=== PATIENT | male | born 1950 | race Caucasian/White ===

== ENCOUNTER 2018-07-03 16:24 | Emergency (ER) | payer SELFPAY ==
[2018-07-03 16:28] VITALS: BP 123/66; PULSE 76; RESP 16; TEMP 36.6; O2SAT 98
--- NOTE | 2018-07-03 16:36 | W.ED.GENAD ---
Discharge Plan Disposition Patient Disposition: HOME Condition: Stable Discharge Details Chief Complaint: Abd Prob Clinical Impression: Postoperative ecchymosis Primary Care Provider: Rylan Page ED Provider: Maxime Ocampo Home Meds and New Rx's Prescriptions: No Action aspirin [Aspir-81] 81 MG tablet,delayed release (DR/EC) 81 mg PO DAILY RF: 0 rosuvastatin [Crestor] 40 MG tablet 40 mg PO QPM RF: 0 umeclidinium [Incruse Ellipta] 1 PUFF blister with device 1 puff IN PRN PRNRF: 0 acetaminophen [Acetaminophen Extra Strength] 500 mg Tablet 500 mg PO QID RF: 0 ibuprofen 100 mg/5 mL Suspension 400 mg PO Q4H PRNRF: 0 tiotropium-olodaterol [Stiolto Respimat] 2.5-2.5 mcg/actuation Mist 2 puff Inhalation DAILY RF: 0 Discharge Instructions Additional Instructions: The bruising is normal after the operation follow up with your surgeon as scheduled next week if you have severe pain return to the emergency department for reevaluation Medical Decision Making pt states he had alexandra on 06/25 in [facility] with Dr. Crawford, and today noticed bruising around the laparascopic ports and called his surgeon's office and was advised to come here. Has no drianage of the wounds and has absolutely no pain, does have bruising of the skin. Suspect normal post op bruising but will discuss with his surgeon spoke with the PA for dr. crawford who agreed this is normal post op, can f/u as scheduled and return here if pain develops Differential Diagnosis post op bruising, hematoma HPI General Mode of arrival: ambulatory. Date/Time Provider Initiated Documentation: 07/03/18 16:31. Limitations to Documentation: no limitations. History of Present Illness 68 year old M presents to the emergency department with the chief complaint of abdominal bruising, described as mild, and is localized to the abdomen. Patient reports no radiation. Patient started experiencing this day(s) (1) and it has been constant. No relieving factors improve symptom(s), No exacerbating factors reported . Patient did receive the following treatments prior to arrival, none Related Data Home Medications Medication Instructions Recorded Confirmed aspirin [Aspir-81] 81 mg PO DAILY 04/25/14 08/29/17 rosuvastatin [Crestor] 40 mg PO QPM 04/25/14 08/29/17 umeclidinium [Incruse Ellipta] 1 puff IN PRN PRN 08/21/17 08/29/17 acetaminophen [Acetaminophen Extra 500 mg PO QID 07/03/18 07/03/18 Strength] ibuprofen 400 mg PO Q4H PRN 07/03/18 07/03/18 tiotropium-olodaterol [Stiolto 2 puff INHALATION DAILY 07/03/18 07/03/18 Respimat] Allergies Allergy/AdvReac Type Severity Reaction Status Date / Time No Known Allergies Allergy Unverified 08/29/17 23:18 General Stated Complaint: Abd Prob BRYAN: 3 Review of Systems Review of Systems All systems reviewed & are unremarkable except as noted in HPI and below Constitutional Denies chills, Denies fever(s) and Denies weakness Eyes Denies loss of vision ENT Denies change in voice Cardiovascular Denies chest pain and Denies dyspnea Respiratory Denies dyspnea Gastrointestinal Denies abdominal pain, Denies nausea and Denies vomiting Genitourinary Denies dysuria Musculoskeletal Denies joint swelling Neurologic Denies loss of vision and Denies weakness Psychiatric Denies depression Endocrine Denies cold intolerance and Denies heat intolerance Allergic/Immunologic Denies urticaria PFSH Social History Smoking/Tobacco Use Status: Current every day Exam Const General: no acute distress Orientation: alert [facility] Head: normal to inspection Ears: external ears normal General nose exam: external nose normal Mouth: moist mucous membranes Eyes General: appearance normal, both eyes and all related structures Neck Neck: normal visual inspection Resp Effort & Inspection: normal respiratory effort and able to speak in complete sentences Cardio Rate: regular rate Skin General skin exam: no rashes or lesions noted Neuro General: alert and oriented x3 Extrem General: normal to inspection Psych Mental Status: mental status grossly normal Course Vital Signs Temperature 36.6 C 07/03/18 16:28 Pulse 76 07/03/18 16:28 Respiratory Rate 16 07/03/18 16:28 Blood Pressure 123/66 07/03/18 16:28 Pulse Oximetry 98 07/03/18 16:28 Temperature 36.6 C 07/03/18 16:28 Temperature Source Skin 07/03/18 16:28 Pulse 76 07/03/18 16:28 Respiratory Rate 16 07/03/18 16:28 Respiratory Effort 07/03/18 16:31 Blood Pressure 123/66 07/03/18 16:28 Blood Pressure Position Sitting 07/03/18 16:28 Pulse Oximetry 98 07/03/18 16:28 Oxygen Delivery Method Room Air 07/03/18 16:28 Oxygen Flow Rate 0 07/03/18 16:28 Pain Level 0 07/03/18 16:28
--- NOTE | 2018-07-03 16:40 | ED.GENADUL_ITS ---
Discharge Plan Disposition Patient Disposition: HOME Condition: Stable Discharge Details Chief Complaint: Abd Prob Clinical Impression: Postoperative ecchymosis Primary Care Provider: Rylan Page ED Provider: Maxime Ocampo Home Meds and New Rx's Prescriptions: No Action aspirin [Aspir-81] 81 MG tablet,delayed release (DR/EC) 81 mg PO DAILY RF: 0 rosuvastatin [Crestor] 40 MG tablet 40 mg PO QPM RF: 0 umeclidinium [Incruse Ellipta] 1 PUFF blister with device 1 puff IN PRN PRNRF: 0 acetaminophen [Acetaminophen Extra Strength] 500 mg Tablet 500 mg PO QID RF: 0 ibuprofen 100 mg/5 mL Suspension 400 mg PO Q4H PRNRF: 0 tiotropium-olodaterol [Stiolto Respimat] 2.5-2.5 mcg/actuation Mist 2 puff Inhalation DAILY RF: 0 Discharge Instructions Additional Instructions: The bruising is normal after the operation follow up with your surgeon as scheduled next week if you have severe pain return to the emergency department for reevaluation Medical Decision Making pt states he had alexandra on 06/[address] [facility] with Dr. Crawford, and today noticed bruising around the laparascopic ports and called his surgeon's office and was advised to come here. Has no drianage of the wounds and has absolutely no pain, does have bruising of the skin. Suspect normal post op bruising but will discuss with his surgeon spoke with the PA for dr. crawford who agreed this is normal post op, can f/u as scheduled and return here if pain develops Differential Diagnosis post op bruising, hematoma HPI General Mode of arrival: ambulatory . Date/Time Provider Initiated Documentation: 07/03/18 16:31 . Limitations to Documentation: no limitations . History of Present Illness 68 year old M presents to the emergency department with the chief complaint of abdominal bruising, described as mild, and is localized to the abdomen. Patient reports no radiation. Patient started experiencing this day(s) (1) and it has been constant. No relieving factors improve symptom(s), No exacerbating factors reported . Patient did receive the following treatments prior to arrival, none Related Data Home Medications Medication Instructions Recorded Confirmed aspirin [Aspir-81] 81 mg PO DAILY 04/25/14 08/29/17 rosuvastatin [Crestor] 40 mg PO QPM 04/25/14 08/29/17 umeclidinium [Incruse Ellipta] 1 puff IN PRN PRN 08/21/17 08/29/17 acetaminophen [Acetaminophen Extra 500 mg PO QID 07/03/18 07/03/18 Strength] ibuprofen 400 mg PO Q4H PRN 07/03/18 07/03/18 tiotropium-olodaterol [Stiolto 2 puff INHALATION DAILY 07/03/18 07/03/18 Respimat] Allergies Allergy/AdvReac Type Severity Reaction Status Date / Time No Known Allergies Allergy Unverified 08/29/17 23:18 General Stated Complaint: Abd Prob BRYAN: 3 Review of Systems Review of Systems All systems reviewed & are unremarkable except as noted in HPI and below Constitutional Denies chills, Denies fever(s) and Denies weakness Eyes Denies loss of vision ENT Denies change in voice Cardiovascular Denies chest pain and Denies dyspnea Respiratory Denies dyspnea Gastrointestinal Denies abdominal pain, Denies nausea and Denies vomiting Genitourinary Denies dysuria Musculoskeletal Denies joint swelling Neurologic Denies loss of vision and Denies weakness Psychiatric Denies depression Endocrine Denies cold intolerance and Denies heat intolerance Allergic/Immunologic Denies urticaria PFSH Social History Smoking/Tobacco Use Status: Current every day Exam Const General: no acute distress Orientation: alert [facility] Head: normal to inspection Ears: external ears normal General nose exam: external nose normal Mouth: moist mucous membranes Eyes General: appearance normal, both eyes and all related structures Neck Neck: normal visual inspection Resp Effort & Inspection: normal respiratory effort and able to speak in complete sentences Cardio Rate: regular rate Skin General skin exam: no rashes or lesions noted Neuro General: alert and oriented x3 Extrem General: normal to inspection Psych Mental Status: mental status grossly normal Course Vital Signs Temperature 36.6 C 07/03/18 16:28 Pulse 76 07/03/18 16:28 Respiratory Rate 16 07/03/18 16:28 Blood Pressure 123/66 07/03/18 16:28 Pulse Oximetry 98 07/03/18 16:28 Temperature 36.6 C 07/03/18 16:28 Temperature Source Skin 07/03/18 16:28 Pulse 76 07/03/18 16:28 Respiratory Rate 16 07/03/18 16:28 Respiratory Effort 07/03/18 16:31 Blood Pressure 123/66 07/03/18 16:28 Blood Pressure Position Sitting 07/03/18 16:28 Pulse Oximetry 98 07/03/18 16:28 Oxygen Delivery Method Room Air 07/03/18 16:28 Oxygen Flow Rate 0 07/03/18 16:28 Pain Level 0 07/03/18 16:28
[2018-07-03 16:51] VITALS: BP 123/66; PULSE 76; RESP 16; TEMP 36.6; O2SAT 98
== END 2018-07-03 16:54 | disposition home or self-care (01) ==
LOC: ER 17:15
PROVIDERS: Emergency Provider Emergency Medicine; PCP Internal Medicine
DX: L76.32 Postprocedural hematoma of skin and subcutaneous tissue following other procedure (principal)
CPT/HCPCS: 99282

== ENCOUNTER 2018-07-04 15:05 | Outpatient (CLI) | payer MEDICARE, SELFPAY ==
--- NOTE | 2018-07-04 15:00 | DI.US_ITS ---
SYMPTOMS/DIAGNOSIS: WOUND CHECK, DRAINING, Z51.89, SEROMA, H/O SURGERY ANTERIOR ABDOMINAL WALL ULTRASOUND: Sonographic evaluation of the anterior abdominal wall and the post surgical area was performed. There is 2.7 x 0.9 x 2.4 cm subcutaneous fluid collection in the post surgical area in the anterior abdominal wall. There does appear to be communication with the fluid collection to the skin surface. The fluid appears predominantly anechoic with very little interval echogenicity. No abnormal blood flow is seen. IMPRESSION: Subcutaneous 2.7 cm fluid collection in the post surgical area of the anterior abdominal wall. There does appear to be communication to the skin surface noted. This may represent a seroma or hematoma. An abscess can not be excluded.
== END 2018-07-04 15:25 ==
PROVIDERS: PCP Internal Medicine; Visit Provider Internal Medicine
DX: Z51.89 Encounter for other specified aftercare (principal); L76.34 Postprocedural seroma of skin and subcutaneous tissue following other procedure
CPT/HCPCS: 76705

== ENCOUNTER 2018-10-31 17:19 | Outpatient (REF) | payer MEDICARE, SELFPAY ==
[2018-10-31 21:06] LABS: HGB 14.4 g/dL (13.5-17.5); Mean Corp. HGB Concentration 33.5 g/dL (32.0-36.0); Mean Corpuscular Volume 92.5 fL (80-95); Mean Platelet Volume 10.5 fL (8.0-11.0); Platelet Count 235 x1000/uL (130-400); RBC 4.65 m/cumm (4.50-6.00); RBC Distribution Width 14.1 % (11.8-14.1); White Blood Cell Count 9.08 k/cumm (4.4-10.8)
[2018-10-31 21:11] LABS: Anion Gap 6.9 mmol/L (3-11); BUN 8 mg/dL (7-18); CO2 31.1 mmol/L (21.0-32.0); CREATININE 1.19 mg/dL (0.70-1.30); Calcium 8.8 mg/dL (8.5-10.1); Chloride 102 mmol/L (98-107); Glucose 63 mg/dL (70-100); Potassium 3.7 mmol/L (3.5-5.1); Sodium 140 mmol/L (136-145)
== END 2018-10-31 17:39 ==
LOC: NCHCN 17:19
PROVIDERS: PCP Internal Medicine; Visit Provider Internal Medicine
DX: J44.1 Chronic obstructive pulmonary disease with (acute) exacerbation (principal); F17.200 Nicotine dependence, unspecified, uncomplicated; C34.12 Malignant neoplasm of upper lobe, left bronchus or lung
CPT/HCPCS: 80048; 85027

== ENCOUNTER → 2018-11-04 00:52 | Outpatient (CLI) | payer MEDICARE, SELFPAY ==
--- NOTE | 2018-11-04 14:38 | DI.CT_ITS ---
SYMPTOMS/DIAGNOSIS: COPD, ACUTE EXACERBATION OF LUNG CA, LEFT UPPER LOBE, J44.1, C34.12 CT SCAN OF THE CHEST: CT scan of the chest was performed following the uneventful administration of intravenous contrast material. Comparison is 08/30/17. There is atherosclerosis of the thoracic aorta, which is otherwise stable. The heart size is within normal limits. No significant pericardial effusion is present. Coronary artery calcifications are identified. No significant thoracic adenopathy is present. No pleural effusion or pneumothorax is identified. Upper abdominal images show cholelithiasis. No biliary ductal dilatation. There are calcifications seen in the kidneys bilaterally, which may reflect nonobstructing stones. Central lobular emphysematous changes are present in the lungs. The subpleural reticular infiltrates are again seen and unchanged. No new focal consolidating infiltrates are seen. No pulmonary nodules are identified. The patient appears status post left upper lobectomy. Tracheobronchial tree is otherwise unremarkable. Degenerative changes are seen in the spine. IMPRESSION: 1. Stable appearance of the chest. 2. Status post left upper lobectomy. 3. Central lobular emphysema. 4. Persistent stable reticular opacities in the lungs. These appear to be chronic. 5. No new consolidating infiltrates.
[2018-11-04] MEDS: Omnipaque 350 MG/ML 100 ML BTL 70 ML IJ (14:40)
== END ==
PROVIDERS: PCP Internal Medicine; Visit Provider Internal Medicine
DX: C34.12 Malignant neoplasm of upper lobe, left bronchus or lung (principal); J44.1 Chronic obstructive pulmonary disease with (acute) exacerbation; J43.9 Emphysema, unspecified; Z90.2 Acquired absence of lung [part of]
CPT/HCPCS: 71260; J3490

== ENCOUNTER 2018-11-28 14:40 | Inpatient (IN) | payer MEDICARE, SELFPAY ==
[2018-11-28] VITALS (42 sets, daily range): BP systolic 86–106; BP diastolic 50–66; PULSE 66–117; RESP 8–38; TEMP 36.1–38.5; O2SAT 91–99
--- NOTE | 2018-11-28 14:54 | W.ED.GENAD ---
Discharge Plan Disposition Patient Disposition: [facility] INPATIENT Condition: Good Discharge Details Chief Complaint: SOB Clinical Impression: Pneumonia Primary Care Provider: Rylan Page ED Provider: Singh Taylor Home Meds and New Rx's Prescriptions: No Action aspirin [Aspir-81] 81 MG tablet,delayed release (DR/EC) 81 mg PO DAILY RF: 0 rosuvastatin [Crestor] 40 MG tablet 40 mg PO QPM RF: 0 umeclidinium [Incruse Ellipta] 1 PUFF blister with device 1 puff IN PRN PRNRF: 0 acetaminophen [Acetaminophen Extra Strength] 500 mg Tablet 500 mg PO QID RF: 0 ibuprofen 100 mg/5 mL Suspension 400 mg PO Q4H PRNRF: 0 tiotropium-olodaterol [Stiolto Respimat] 2.5-2.5 mcg/actuation Mist 2 puff Inhalation DAILY RF: 0 Medical Decision Making This is a 68-year-old male with past medical history of lung cancer with subsequent right-sided lobectomy, COPD, AAA, who presents for cough, fever, shortness of breath and chills for the last month. Patient has been on 3 rounds of antibiotics, starting with azithromycin and transitioning to doxycycline, 2 rounds of prednisone, and Tamiflu for the last 3 weeks. He has had no improvement of his symptoms. He has white productive sputum with his cough. He admits to shortness of breath, and he was sent by his air antisubmarine officer secondary to his elevated heart rate and clinical disposition today. Exam demonstrates wheezes throughout, notable tachycardia, but being otherwise hemodynamically stable. Concern for infectious etiology, as well as PE. We will rehydrate, and reassess. 5:[address] scan has returned does demonstrate evidence of notable pneumonia with masslike consolidation in the central right upper lobe. This correlates well with his fever, tachypnea, tachycardia. Although the patient is not been admitted in the last 90 days I feel that he should be covered for hospital-acquired pneumonia with his multiple visits, risk factors with his previous cancer, and his notably failed outpatient therapy. We will start him on vancomycin, Zosyn, and gentamicin as he does have slight prolongation of his QT on his EKG. Patient has been given steroids and butyryl which has minimally improved his symptoms. I have discussed the case with Dr. Jaime he agrees with the assessment and plan. I have extensively reviewed the treatment plan with the patient. I have addressed all patient concerns at this time. I have also discussed the plan with the admitting physician and they agree with the current assessment and plan and have agreed to assume responsibility for the patient. All parties demonstrate verbal understanding and agreement with our assessment and plan at this time. EKG 14: 56 Rate 115, QT of 472, QRS of 230, right bundle branch block, this bundle branch block appears to be new compared to EKG on 08/29/17 CLINICAL HISTORY: 68 years old, male; Signs and symptoms; Cough and shortness of breath; Patient HX: Tachy, SOB, cough, cancer, R/O pe TECHNIQUE: Imaging protocol: Axial computed tomographic angiography images of the chest with intravenous contrast using CT angiography protocol. Coronal and sagittal reformatted images were created and reviewed. 3D rendering: MIP reconstructed images were created and reviewed. Radiation optimization: All CT scans at this facility use at least one of these dose optimization techniques: automated exposure control; mA and/or kV adjustment per patient size (includes targeted exams where dose is matched to clinical indication); or iterative reconstruction. Contrast material: omnipaque 350 Contrast volume: 100 ml Contrast route: iv COMPARISON: CT CHEST FOR PULMONARY EMBOLUS 08/30/2017 12:17 AM FINDINGS: Pulmonary arteries: No pulmonary arterial embolism. Aorta: No aortic aneurysm. No aortic dissection. Lungs: Status post left upper lobectomy. New central right upper lobe masslike consolidation, consistent with pneumonia in the proper clinical setting. Patchy micronodules within the lateral right lower lobe in a tree in bud configuration, likely infectious bronchiolitis. Patchy densities within the peripheral aspects of both upper lung zones, unchanged. Stable pulmonary emphysema. Pleural space: Normal. No pneumothorax. No pleural effusion. Heart: Normal. No cardiomegaly. No pericardial effusion. Gallbladder and bile ducts: Calcified stone within the gallbladder. Lymph nodes: Unremarkable. No enlarged lymph nodes. Bones/joints: Unremarkable. No acute fracture. Soft tissues: Unremarkable. IMPRESSION: 1. No pulmonary arterial embolism. 2. Status post left upper lobectomy. 3. New masslike consolidation within the central right upper lobe consistent with pneumonia in the proper clinical setting. 4. Findings consistent with infectious bronchiolitis of the lateral right lower lobe. Thank you for allowing us to participate in the care of your patient. Dictated and Authenticated by: Sharan Huerta MD HPI General Date/Time Provider Initiated Documentation: 11/28/18 14:40. HPI Narrative: This is a 68-year-old male with past medical history of lung cancer with subsequent right-sided lobectomy, COPD, AAA, high cholesterol, who does see pulmonology, who presents today for evaluation of cough, tachycardia. He was at his air antisubmarine officer office today they noticed that his heart rate was in the 120s they recommended transfer to the ER. For the last month he has been short of breath with cough. He has had 3 rounds of antibiotics, initially azithromycin and is now currently taking doxycycline. He is also been on 2 rounds of steroids and has finished this. Additionally 3 weeks ago he was diagnosed with influenza and was given Tamiflu. He has had a productive cough for the last month, with white sputum. He is not being any breathing treatments as he states these do not work. He denies any fevers, chills, or chest pain. He denies any arm neck or shoulder pain. He denies any vomiting or diarrhea. He denies any other complaints or modifying factors. Related Data Home Medications Medication Instructions Recorded Confirmed aspirin [Aspir-81] 81 mg PO DAILY 04/25/14 07/03/18 rosuvastatin [Crestor] 40 mg PO QPM 04/25/14 07/03/18 umeclidinium [Incruse Ellipta] 1 puff IN PRN PRN 08/21/17 08/29/17 acetaminophen [Acetaminophen Extra 500 mg PO QID 07/03/18 07/03/18 Strength] ibuprofen 400 mg PO Q4H PRN 07/03/18 07/03/18 tiotropium-olodaterol [Stiolto 2 puff INHALATION DAILY 07/03/18 07/03/18 Respimat] Allergies Allergy/AdvReac Type Severity Reaction Status Date / Time No Known Allergies Allergy Unverified 08/29/17 23:18 General Stated Complaint: SOB BRYAN: 2 Review of Systems Review of Systems All systems reviewed & are unremarkable except as noted in HPI and below PFSH Social History Smoking/Tobacco Use Status: Current every day Alcohol Intake: never Drug use: Never Substance use type: does not use Do you feel safe at home: Yes Do you feel safe in your relationship?: Yes Exam Narrative Exam Narrative: 1.Const: Well-nourished, Well-developed, appearing stated age 2.Eyes: PERRL, no conjunctival injection, and symmetrical lids. 3.ENT: Atraumatic external nose and ears. Moist MM. Neck: Symmetric, trachea midline, No thyromegaly. 4.CVS: +S1/S2, No murmurs or gallops. Peripheral pulses 2+ and equal in all extremities. Brisk capillary refill in all extremities. 5.RESP: Decreased breath sounds throughout, notable wheezes throughout. Minimal crackles in bases. 6.GI: Soft, Nontender/Nondistended, No hepatosplenomegaly. No guarding or rebound. 7.MSK: Normocephalic/Atraumatic, Extremities w/o deformity or ttp No cyanosis or clubbing, Normal movement of all extremities. No calf tenderness. 8.Skin: Warm, Dry. No rashes or lesions. 9.Neuro: bioinformatics software engineer II-XII grossly intact. Sensation grossly intact, no focal neurologic deficits. 10.Psych: (AAO) x3. Appropriate mood and affect Course Vital Signs Temperature 37.1 C 11/28/18 14:46 Pulse 117 H 11/28/18 14:46 Respiratory Rate 28 H 11/28/18 14:46 Blood Pressure 106/66 11/28/18 14:46 Pulse Oximetry 95 11/28/18 14:46 Temperature 37.1 C 11/28/18 14:46 Temperature Source Skin 11/28/18 14:46 Pulse 117 H 11/28/18 14:46 Respiratory Rate 28 H 11/28/18 14:46 Respiratory Effort Pursed Lip 11/28/18 14:49 Blood Pressure 106/66 11/28/18 14:46 Pulse Oximetry 95 11/28/18 14:46 Oxygen Delivery Method Room Air 11/28/18 14:46 Oxygen Flow Rate 0 11/28/18 14:46
[2018-11-28] MEDS: Albuterol/Ipratropium 3 ML UPD VIAL UPD (14:58)
--- NOTE | 2018-11-28 14:59 | ED.GENADUL_ITS ---
Discharge Plan Disposition Patient Disposition: [facility] INPATIENT Condition: Good Discharge Details Chief Complaint: SOB Clinical Impression: Pneumonia Primary Care Provider: Rylan Page ED Provider: Singh Taylor Home Meds and New Rx's Prescriptions: No Action aspirin [Aspir-81] 81 MG tablet,delayed release (DR/EC) 81 mg PO DAILY RF: 0 rosuvastatin [Crestor] 40 MG tablet 40 mg PO QPM RF: 0 umeclidinium [Incruse Ellipta] 1 PUFF blister with device 1 puff IN PRN PRNRF: 0 acetaminophen [Acetaminophen Extra Strength] 500 mg Tablet 500 mg PO QID RF: 0 ibuprofen 100 mg/5 mL Suspension 400 mg PO Q4H PRNRF: 0 tiotropium-olodaterol [Stiolto Respimat] 2.5-2.5 mcg/actuation Mist 2 puff Inhalation DAILY RF: 0 Medical Decision Making This is a 68-year-old male with past medical history of lung cancer with subsequent right-sided lobectomy, COPD, AAA, who presents for cough, fever, shortness of breath and chills for the last month. Patient has been on 3 rounds of antibiotics, starting with azithromycin and transitioning to doxycycline, 2 rounds of prednisone, and Tamiflu for the last 3 weeks. He has had no improvement of his symptoms. He has white productive sputum with his cough. He admits to shortness of breath, and he was sent by his receptionist airline lounge secondary to his elevated heart rate and clinical disposition today. Exam demonstrates wh eezes throughout, notable tachycardia, but being otherwise hemodynamically stable. Concern for infectious etiology, as well as PE. We will rehydrate, and reassess. 5:[address] scan has returned does demonstrate evidence of notable pneumonia with masslike consolidation in the central right upper lobe. This correlates well with his fever, tachypnea, tachycardia. Although the patient is not been admitted in the last 90 days I feel that he should be covered for hospital- acquired pneumonia with his multiple visits, risk factors with his previous cancer, and his notably failed outpatient therapy. We will start him on vancomycin, Zosyn, and gentamicin as he does have slight prolongation of his QT on his EKG. Patient has been given steroids and butyryl which has minimally improved his symptoms. I have discussed the case with Dr. Jaime he agrees with the assessment and plan. I have extensively reviewed the treatment plan with the patient. I have addressed all patient concerns at this time. I have also discussed the plan with the admitting physician and they agree with the current assessment and plan and have agreed to assume responsibility for the patient. All parties demonstrate verbal understanding and agreement with our assessment and plan at this time. EKG 14: 56 Rate 115, QT of 472, QRS of 230, right bundle branch block, this bundle branch block appears to be new compared to EKG on 08/29/17 CLINICAL HISTORY: 68 years old, male; Signs and symptoms; Cough and shortness of breath; Patient HX: Tachy, SOB, cough, cancer, R/O pe TECHNIQUE: Imaging protocol: Axial computed tomographic angiography images of the chest with intravenous contrast using CT angiography protocol. Coronal and sagittal reformatted images were created and reviewed. 3D rendering: MIP reconstructed images were created and reviewed. Radiation optimization: All CT scans at this facility use at least one of these dose optimization techniques: automated exposure control; mA and/or kV adjustment per patient size (includes targeted exams where dose is matched to clinical indication); or iterative reconstruction. Contrast material: omnipaque 350 Contrast volume: 100 ml Contrast route: iv COMPARISON: CT CHEST FOR PULMONARY EMBOLUS 08/30/2017 12:17 AM FINDINGS: Pulmonary arteries: No pulmonary arterial embolism. Aorta: No aortic aneurysm. No aortic dissection. Lungs: Status post left upper lobectomy. New central right upper lobe masslike consolidation, consistent with pneumonia in the proper clinical setting. Patchy micronodules within the lateral right lower lobe in a tree in bud configuration, likely infectious bronchiolitis. Patchy densities within the peripheral aspects of both upper lung zones, unchanged. Stable pulmonary emphysema. Pleural space: Normal. No pneumothorax. No pleural effusion. Heart: Normal. No cardiomegaly. No pericardial effusion. Gallbladder and bile ducts: Calcified stone within the gallbladder. Lymph nodes: Unremarkable. No enlarged lymph nodes. Bones/joints: Unremarkable. No acute fracture. Soft tissues: Unremarkable. IMPRESSION: 1. No pulmonary arterial embolism. 2. Status post left upper lobectomy. 3. New masslike consolidation within the central right upper lobe consistent with pneumonia in the proper clinical setting. 4. Findings consistent with infectious bronchiolitis of the lateral right lower lobe. Thank you for allowing us to participate in the care of your patient. Dictated and Authenticated by: Sharan Huerta MD HPI General Date/Time Provider Initiated Documentation: 11/28/18 14:40 . HPI Narrative: This is a 68-year-old male with past medical history of lung cancer with subsequent right-sided lobectomy, COPD, AAA, high cholesterol, who does see pulmonology, who presents today for evaluation of cough, tachycardia. He was at his receptionist airline lounge office today they noticed that his heart rate was in the 120s they recommended transfer to the ER. For the last month he has been short of breath with cough. He has had 3 rounds of antibiotics, initially azithromycin and is now currently taking doxycycline. He is also been on 2 rounds of steroids and has finished this. Additionally 3 weeks ago he was diagnosed with influenza and was given Tamiflu. He has had a productive cough for the last month, with white sputum. He is not being any breathing treatments as he states these do not work. He denies any fevers, chills, or chest pain. He denies any arm neck or shoulder pain. He denies any vomiting or diarrhea. He denies any other complaints or modifying factors. Related Data Home Medications Medication Instructions Recorded Confirmed aspirin [Aspir-81] 81 mg PO DAILY 04/25/14 07/03/18 rosuvastatin [Crestor] 40 mg PO QPM 04/25/14 07/03/18 umeclidinium [Incruse Ellipta] 1 puff IN PRN PRN 08/21/17 08/29/17 acetaminophen [Acetaminophen Extra 500 mg PO QID 07/03/18 07/03/18 Strength] ibuprofen 400 mg PO Q4H PRN 07/03/18 07/03/18 tiotropium-olodaterol [Stiolto 2 puff INHALATION DAILY 07/03/18 07/03/18 Respimat] Allergies Allergy/AdvReac Type Severity Reaction Status Date / Time No Known Allergies Allergy Unverified 08/29/17 23:18 General Stated Complaint: SOB BRYAN: 2 Review of Systems Review of Systems All systems reviewed & are unremarkable except as noted in HPI and below PFSH Social History Smoking/Tobacco Use Status: Current every day Alcohol Intake: never Drug use: Never Substance use type: does not use Do you feel safe at home: Yes Do you feel safe in your relationship?: Yes Exam Narrative Exam Narrative: 1.Const: Well-nourished, Well-developed, appearing stated age 2.Eyes: PERRL, no conjunctival injection, and symmetrical lids. 3.ENT: Atraumatic external nose and ears. Moist MM. Neck: Symmetric, trachea midline, No thyromegaly. 4.CVS: +S1/S2, No murmurs or gallops. Peripheral pulses 2+ and equal in all extremities. Brisk capillary refill in all extremities. 5.RESP: Decreased breath sounds throughout, notable wheezes throughout. Minimal crackles in bases. 6.GI: Soft, Nontender/Nondistended, No hepatosplenomegaly. No guarding or rebound. 7.MSK: Normocephalic/Atraumatic, Extremities w/o deformity or ttp No cyanosis or clubbing, Normal movement of all extremities. No calf tenderness. 8.Skin: Warm, Dry. No rashes or lesions. 9.Neuro: machine stoppage frequency checker II-XII grossly intact. Sensation grossly intact, no focal neurologic deficits. 10.Psych: (AAO) x3. Appropriate mood and affect Course Vital Signs Temperature 37.1 C 11/28/18 14:46 Pulse 117 H 11/28/18 14:46 Respiratory Rate 28 H 11/28/18 14:46 Blood Pressure 106/66 11/28/18 14:46 Pulse Oximetry 95 11/28/18 14:46 Temperature 37.1 C 11/28/18 14:46 Temperature Source Skin 11/28/18 14:46 Pulse 117 H 11/28/18 14:46 Respiratory Rate 28 H 11/28/18 14:46 Respiratory Effort Pursed Lip 11/28/18 14:49 Blood Pressure 106/66 11/28/18 14:46 Pulse Oximetry 95 11/28/18 14:46 Oxygen Delivery Method Room Air 11/28/18 14:46 Oxygen Flow Rate 0 11/28/18 14:46
[2018-11-28 15:07] LABS: Lactate-non-spesis 1.5 mmol/l (0.6-1.4)
[2018-11-28 15:10] LABS: Abs Immature Grans 0.17 k/cumm (0.0-0.09); HCT 47.5 % (40.0-50.0); HGB 15.7 g/dL (13.5-17.5); Mean Corp. HGB Concentration 33.1 g/dL (32.0-36.0); Mean Corpuscular Hemoglobin 30.3 pg (27.0-33.0); Mean Corpuscular Volume 91.7 fL (80-95); Mean Platelet Volume 9.4 fL (8.0-11.0); Platelet Count 212 x1000/uL (130-400); RBC 5.18 m/cumm (4.50-6.00); RBC Distribution Width 14.6 % (11.8-14.1)
[2018-11-28] MEDS: Normal Saline 1,000 ML 1000 ML IV ×2 (15:10→18:38)
[2018-11-28] MEDS: methylPREDNISolone SUCC 125 MG VIAL IVP ×2 (15:10→23:47)
[2018-11-28 15:17] LABS: White Blood Cell Count 27.79 k/cumm (4.4-10.8)
[2018-11-28 15:26] LABS: Absolute Lymphocyte Count 0.83 k/cumm (1.2-3.4); Absolute Monocyte Count 3.33 k/cumm (0.11-0.7); Absolute Neutrophil Count 23.34 k/cumm (1.2-6.7); Atypical Lymphocytes % 1
[2018-11-28 15:27] LABS: Diff Comment Manual Differential; RBC Morphology Normal
[2018-11-28 15:33] LABS: ALT 15 U/L (12-78); AST 8 U/L (15-37); Albumin 3.1 g/dL (3.4-5.0); Alkaline Phosphatase 102 U/L (46-116); Anion Gap 10.1 mmol/L (3-11); BUN 16 mg/dL (7-18); CO2 26.9 mmol/L (21.0-32.0); CREATININE 1.51 mg/dL (0.70-1.30); Calcium 9.1 mg/dL (8.5-10.1); Chloride 96 mmol/L (98-107); Estimated GFR 46.47 (mL/min/1.73m2); Glucose 113 mg/dL (70-100); Potassium 3.7 mmol/L (3.5-5.1); Sodium 133 mmol/L (136-145); Total Protein 7.6 g/dL (6.4-8.2)
[2018-11-28 15:34] LABS: Troponin I < 0.02 ng/mL (0.00-0.06)
[2018-11-28] MEDS: Acetaminophen 500 MG TAB (15:42)
[2018-11-28 15:45] LABS: INR 1.2 (0.9-1.1); PTT Activated 27.1 sec (21.0-31.4)
[2018-11-28] MEDS: Omnipaque 350 MG/ML 100 ML BTL IJ (16:16)
--- NOTE | 2018-11-28 16:23 | DI.CT_ITS ---
SYMPTOM/DIAGNOSIS: TACHYCARDIA, SOB, COUGH, ? PE, H/O CANCER PE CHEST CT: CT angiography was performed with multi slice acquisition and multi planar and 3D reconstruction. CT scan of the chest was performed according to the pulmonary embolus protocol. Comparison is made with 11/04/18. There is no evidence of a pulmonary embolus. The thoracic aorta shows no evidence of dissection or aneurysm. The patient is status post left upper lobectomy. Pulmonary emphysematous changes are present in the lungs. There are again seen patchy densities in the periphery of both upper lobes. These are unchanged. There is a new area of consolidation in the medial aspect of the right upper lobe. This was not present on the CT scan from 11/04/18. Pneumonia should be considered in the appropriate clinical setting. Tree and bud appearance is seen in the right lower lobe laterally which may reflect an infectious bronchiolitis. The tracheobronchial tree is grossly unremarkable. No pleural effusion or pneumothorax is identified. Heart size is within normal limits. No significant pericardial effusion is seen. No evidence of right ventricular dysfunction is present. There is cholelithiasis present on the upper abdominal images. Degenerative changes are seen in the spine. IMPRESSION: 1. No evidence of a pulmonary embolus, thoracic aortic dissection or aneurysm. 2. Status post left upper lobectomy. 3. Area of consolidation involving the medial aspect of the right upper lobe likely reflecting pneumonia. Please correlate clinically. 4. Findings suggestive of infectious bronchiolitis in the right lower lobe. 5. Cholelithiasis.
--- NOTE | 2018-11-28 16:52 | DI.VRAD_ITS ---
EXAM: CT Angiography Chest With Contrast EXAM DATE/TIME: 11/28/2018 4:25 PM CLINICAL HISTORY: 68 years old, male; Signs and symptoms; Cough and shortness of breath; Patient HX: Tachy, SOB, cough, cancer, R/O pe TECHNIQUE: Imaging protocol: Axial computed tomographic angiography images of the chest with intravenous contrast using CT angiography protocol. Coronal and sagittal reformatted images were created and reviewed. 3D rendering: MIP reconstructed images were created and reviewed. Radiation optimization: All CT scans at this facility use at least one of these dose optimization techniques: automated exposure control; mA and/or kV adjustment per patient size (includes targeted exams where dose is matched to clinical indication); or iterative reconstruction. Contrast material: omnipaque 350 Contrast volume: 100 ml Contrast route: iv COMPARISON: CT CHEST FOR PULMONARY EMBOLUS 08/30/2017 12:17 AM FINDINGS: Pulmonary arteries: No pulmonary arterial embolism. Aorta: No aortic aneurysm. No aortic dissection. Lungs: Status post left upper lobectomy. New central right upper lobe masslike consolidation, consistent with pneumonia in the proper clinical setting. Patchy micronodules within the lateral right lower lobe in a tree in bud configuration, likely infectious bronchiolitis. Patchy densities within the peripheral aspects of both upper lung zones, unchanged. Stable pulmonary emphysema. Pleural space: Normal. No pneumothorax. No pleural effusion. Heart: Normal. No cardiomegaly. No pericardial effusion. Gallbladder and bile ducts: Calcified stone within the gallbladder. Lymph nodes: Unremarkable. No enlarged lymph nodes. Bones/joints: Unremarkable. No acute fracture. Soft tissues: Unremarkable. IMPRESSION: 1. No pulmonary arterial embolism. 2. Status post left upper lobectomy. 3. New masslike consolidation within the central right upper lobe consistent with pneumonia in the proper clinical setting. 4. Findings consistent with infectious bronchiolitis of the lateral right lower lobe. Dictated and Authenticated by: Sharan Huerta MD. Ordering:BIENVENIDO Winters MD
[2018-11-28] MEDS: PIPERACILLIN/TAZO 3.375 GM in Normal Saline 50 ML IVPB ×2 (17:38→23:36)
[2018-11-28 17:39] LABS: Bilirubin Negative (Negative); Blood Small (Negative); Clarity Clear; Glucose Negative (Negative); Ketones Negative (Negative); Leukocyte Esterase Negative (Negative); Nitrite Negative (Negative)
[2018-11-28 17:52] LABS: Bacteria Negative HPF (Negative); C & S Indicated? No; Casts Negative LPF (Negative); Crystals Negative HPF (Negative); Epithelial Cells Negative HPF (Negative); Mucus Negative (Negative); Other Cells Negative (Negative); RBC 0-2 (0-2); WBC 0-2 HPF (0-5)
[2018-11-28] MEDS: VANCOMYCIN 1,250 MG in Normal Saline 250 ML 166.6666 MG IVPB (17:55)
--- NOTE | 2018-11-28 19:49 | W.PM.HP.N ---
Date of service: 11/28/18 Time of Service: 19:50 Assessment and Plan (1) Right upper lobe pneumonia: Start date: 11/28/18 Current visit: Yes Status: Acute This is a 68-year-old gentleman who has had a month long history of recurrent respiratory symptoms and not feeling well with generalized fatigue but no significant weight loss. He has a history of left lung cancer which was treated with lobectomy and has had no evidence of disease by history. He failed multiple outpatient treatments for COPD exacerbation and pneumonia/bronchitis and on CT scan was found to have a right masslike consolidation in the mid upper right lobe. He will be treated for complicated pneumonia with Zosyn, vancomycin and gentamicin to be continued as started in the ED. He did have some EKG abnormalities with the ED physician hesitant to use Zithromax. Present the patient is more comfortable after IV hydration and probably was dehydrated upon presentation with tachycardia and his prolonged respiratory illness with fatigue and probable decreased intake though his appetite was still good. He is a full code and this will be respected. Long-term follow-up CT will be needed and of concern would be recurrent lung cancer with postobstructive consolidation. There is no significant lymphadenopathy which is reassuring. This may simply be a complication of his recent flu and prolonged illness. (2) COPD (chronic obstructive pulmonary disease): Start date: 11/28/18 Current visit: Yes Status: Acute His COPD is slightly exacerbated with acute respiratory illness and pneumonia. He will continue on IVs Solu-Medrol with aggressive respiratory treatments. Qualifiers: COPD type: COPD with acute exacerbation Qualified Code(s): J44.1 - Chronic obstructive pulmonary disease with (acute) exacerbation (3) Primary lung cancer: Current visit: Yes Status: Resolved By history this was cured by lobectomy but there is some concern with his prolonged fatigue and now masslike consolidation that may be recurrence of lung cancer. Pulmonology is seen the patient and close follow-up with imaging as we treat his acute pneumonia will be prudent. He may require further investigation such as bronchoscopy. For now pulmonology is not consulted during his inpatient stay. 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 He is a smoker and does have a history of left lung cancer treated with lobectomy and no other adjunct therapy at the time and history of no recurrence or metastases. He has had a one-month history of not feeling well fatigue and slight weight loss but mostly respiratory symptoms with treatment for COPD exacerbation and bronchitis with at least 3 rounds of antibiotics with the last round being doxycycline. He also had 2 pulses of prednisone which always cause him to have night sweats. At one point during this last month he also was diagnosed with influenza and treated with Tamiflu. Is chronically on respiratory treatments and these are not helping his symptoms of cough is persistent. He denies any hemoptysis. He also denies raising any significant sputum. When he was seen his traffic signal repairer today he was found to be tachycardic with heart rates up to 120s and with his persistent cough he was sent to the ED for evaluation. CT scan of his chest for PE protocol did reveal a mass like consolidated within the central right upper lobe. There was no pulmonary embolism and did reveal his left upper lobectomy. There is no mention of significant adenopathy. Patient was treated with IV hydration having slightly low blood pressure and tachycardia along with an elevated creatinine with lab also revealing an elevated lactate and a white blood cell count above 20,000. At the time I saw the patient he felt better but continued to have sweats which he states is from steroids and continue to have fatigue though he was breathing more comfortably when had no tachycardia by vital signs and no palpitations. Pertinent review of systems as above or general symptoms, negative for any GI symptoms the patient's appetite remaining good through this last month though he had slight weight loss. He denied any peripheral edema and has had no focal neurological complaints. He has not had any chest pain. Review of Systems Review of Systems 13 point review of systems otherwise unrevealing or as per HPI. [facility] Medical History Abdominal aortic aneurysm (AAA) (Chronic) COPD (chronic obstructive pulmonary disease) (Chronic) Hyperlipidemia (Chronic) Lung cancer, upper lobe (Resolved) Surgical History S/P lobectomy of lung (Resolved) Social History Smoking/Tobacco Use Status: Current every day Alcohol Intake: never Drug use: Never Substance use type: does not use Do you feel safe at home: Yes Do you feel safe in your relationship?: Yes Meds Home Medications Medication Instructions Recorded Confirmed Type aspirin [Aspir-81] 81 mg PO DAILY 04/25/14 11/28/18 History rosuvastatin [Crestor] 40 mg PO QPM 04/25/14 11/28/18 History Incruse Ellipta 1 puff IN PRN PRN 08/21/17 11/28/18 History acetaminophen [Acetaminophen Extra 500 mg PO QID 07/03/18 11/28/18 History Strength] ibuprofen 400 mg PO Q4H PRN 07/03/18 11/28/18 History tiotropium-olodaterol [Stiolto 2 puff INHALATION DAILY 07/03/18 11/28/18 History Respimat] Allergies Allergy/AdvReac Type Severity Reaction Status Date / Time No Known Allergies Allergy Unverified 08/29/17 23:18 Exam Narrative Exam Narrative: General: Patient appears older than stated age with flattened affect but good eye contact and in no acute distress. He is alert and oriented x3. He does have a hoarse voice and is soft-spoken. He is disheveled. HEENT: Normocephalic, eyes with pupils equal and reactive to light symmetrically and extraocular movement intact. Sclera anicteric. Ears normal. Nose normal. Oropharynx slightly dry oral mucosa. Neck: Supple without JVD. Chest: Nontender to palpation, no intercostal retractions with symmetrical movement with inspiration. Heart: Distant heart sounds with regular rate and rhythm. No murmurs or gallops. Lungs: Bronchovesicular breath sounds diffusely with decreased aeration over the right hemithorax compared to left but no focal rales or rhonchi with diffuse inspiratory and expiratory coarse crackles and upper airway noise. Slightly increased expiratory phase and scant diffuse expiratory wheeze. Abdomen: Soft, nontender with bowel sounds positive all quadrants. No palpable hepatosplenomegaly. Genitalia and rectal exam: Deferred. Extremities: Without clubbing, cyanosis or edema. Fair capillary refill. All joints have fair range of motion. Skin: Diffuse actinic skin changes over sun exposed areas, no rashes, rough texture, pale warm and dry. Good turgor. Neuro: Cranial nerves II through XII grossly intact, no focalizing motor deficits with no Babinski's and DTRs systolic and symmetrical. Results Imaging Additional studies: Troponins were negative and magnesium was normal. Imaging Studies: CT Angiography Chest With Contrast EXAM DATE/TIME: 11/28/2018 4:25 PM CLINICAL HISTORY: 68 years old, male; Signs and symptoms; Cough and shortness of breath; Patient HX: Tachy, SOB, cough, cancer, R/O pe TECHNIQUE: Imaging protocol: Axial computed tomographic angiography images of the chest with intravenous contrast using CT angiography protocol. Coronal and sagittal reformatted images were created and reviewed. 3D rendering: MIP reconstructed images were created and reviewed. Radiation optimization: All CT scans at this facility use at least one of these dose optimization techniques: automated exposure control; mA and/or kV adjustment per patient size (includes targeted exams where dose is matched to clinical indication); or iterative reconstruction. Contrast material: omnipaque 350 Contrast volume: 100 ml Contrast route: iv COMPARISON: CT CHEST FOR PULMONARY EMBOLUS 08/30/2017 12:17 AM FINDINGS: Pulmonary arteries: No pulmonary arterial embolism. Aorta: No aortic aneurysm. No aortic dissection. Lungs: Status post left upper lobectomy. New central right upper lobe masslike consolidation, consistent with pneumonia in the proper clinical setting. Patchy micronodules within the lateral right lower lobe in a tree in bud configuration, likely infectious bronchiolitis. Patchy densities within the peripheral aspects of both upper lung zones, unchanged. Stable pulmonary emphysema. Pleural space: Normal. No pneumothorax. No pleural effusion. Heart: Normal. No cardiomegaly. No pericardial effusion. Gallbladder and bile ducts: Calcified stone within the gallbladder. Lymph nodes: Unremarkable. No enlarged lymph nodes. Bones/joints: Unremarkable. No acute fracture. Soft tissues: Unremarkable. IMPRESSION: 1. No pulmonary arterial embolism. 2. Status post left upper lobectomy. 3. New masslike consolidation within the central right upper lobe consistent with pneumonia in the proper clinical setting. 4. Findings consistent with infectious bronchiolitis of the lateral right lower lobe. Dictated and Authenticated by: Sharan Huerta MD. Labs : 11/28/18 14:58 11/28/18 14:58 Laboratory Results - last 24 hr 04/05/19 04/05/19 04/05/19 14:58 14:58 14:58 WBC 27.79 H* RBC 5.18 Hgb 15.7 Hct 47.5 MCV 91.7 MCH 30.3 MCHC 33.1 RDW 14.6 H Plt Count 212 MPV 9.4 Immature Gran % See Differential Neutrophils % 84.0 Lymphocytes % 2.0 Atypical Lymphs % 1 Monocytes % 12.0 Eosinophils % 0.0 Basophils % 0.0 Metamyelocytes % 1.0 Absolute Neutrophils 23.34 H Absolute Lymphocytes 0.83 L Absolute Monocytes 3.33 H Absolute Eosinophils 0.00 Absolute Basophils 0.00 Differential Comment Manual differential RBC Morphology Normal PT INR APTT Sodium 133 L Potassium 3.7 Chloride 96 L Carbon Dioxide 26.9 Anion Gap 10.1 BUN 16 Creatinine 1.51 H Estimated GFR/1.73 m2 46.47 Glucose 113 H Lactate 1.5 H Calcium 9.1 Total Bilirubin 1.0 AST 8 L ALT 15 Alkaline Phosphatase 102 Troponin I < 0.02 Total Protein 7.6 Albumin 3.1 L TSH 0.40 Urine Color Urine Clarity Urine pH Ur Specific [place] Urine Protein Urine Ketones Urine Blood Urine Nitrite Urine Bilirubin Urine Urobilinogen Ur Leukocyte Esterase Urine RBC Urine WBC Ur Epithelial Cells Urine Crystals Urine Bacteria Urine Casts Urine Mucus Urine Other Ur Culture Indicated? Urine Glucose 11/28/18 11/28/18 14:58 17:22 WBC RBC Hgb Hct MCV MCH MCHC RDW Plt Count MPV Immature Gran % Neutrophils % Lymphocytes % Atypical Lymphs % Monocytes % Eosinophils % Basophils % Metamyelocytes % Absolute Neutrophils Absolute Lymphocytes Absolute Monocytes Absolute Eosinophils Absolute Basophils Differential Comment RBC Morphology PT 12.0 H INR 1.2 H APTT 27.1 Sodium Potassium Chloride Carbon Dioxide Anion Gap BUN Creatinine Estimated GFR/1.73 m2 Glucose Lactate Calcium Total Bilirubin AST ALT Alkaline Phosphatase Troponin I Total Protein Albumin TSH Urine Color Yellow Urine Clarity Clear Urine pH 7.0 Ur Specific [place] 1.010 Urine Protein 100 H Urine Ketones Negative Urine Blood Small H Urine Nitrite Negative Urine Bilirubin Negative Urine Urobilinogen 2.0 H Ur Leukocyte Esterase Negative Urine RBC 0-2 Urine WBC 0-2 Ur Epithelial Cells Negative Urine Crystals Negative Urine Bacteria Negative Urine Casts Negative Urine Mucus Negative Urine Other Negative Ur Culture Indicated? No Urine Glucose Negative Last Vital Signs Temp 36.1 C L 11/28/18 19:18 Pulse 80 11/28/18 19:18 Resp 19 11/28/18 19:18 BP 95/57 L 11/28/18 19:18 Pulse Ox 97 11/28/18 19:18
[2018-11-28] MEDS: Normal Saline 1,000 ML 150 ML IV (20:15)
[2018-11-28] MEDS: Rosuvastatin 10 MG TAB 40 MG PO (20:37)
[2018-11-28 20:50] LABS: Magnesium 1.8 mg/dL (1.8-2.4)
[2018-11-28 20:59] LABS: Troponin I < 0.02 ng/mL (0.00-0.06)
[2018-11-28] MEDS: Heparin 5,000 UNITS/ML VIAL 5000 UNITS SC (22:18)
[2018-11-28 23:53] LABS: Troponin I < 0.02 ng/mL (0.00-0.06)
[2018-11-29] VITALS (8 sets, daily range): BP systolic 100–125; BP diastolic 54–70; PULSE 61–86; RESP 18–20; TEMP 36–36.7; O2SAT 92–96
[2018-11-29] MEDS: Normal Saline 1,000 ML 150 ML IV ×3 (03:08→20:40)
[2018-11-29] MEDS: PIPERACILLIN/TAZO 3.375 GM in Normal Saline 50 ML IVPB ×4 (05:36→23:38)
[2018-11-29] MEDS: Heparin 5,000 UNITS/ML VIAL 5000 UNITS SC ×3 (06:17→21:01)
[2018-11-29] MEDS: VANCOMYCIN 1,000 MG in Normal Saline 250 ML 166.6666 MG IVPB (06:17)
[2018-11-29 07:03] LABS: HCT 37.5 % (40.0-50.0); HGB 12.3 g/dL (13.5-17.5); Mean Corp. HGB Concentration 32.8 g/dL (32.0-36.0); Mean Corpuscular Hemoglobin 30.5 pg (27.0-33.0); Mean Corpuscular Volume 93.1 fL (80-95); Mean Platelet Volume 9.5 fL (8.0-11.0); Platelet Count 207 x1000/uL (130-400); RBC 4.03 m/cumm (4.50-6.00); RBC Distribution Width 14.7 % (11.8-14.1); White Blood Cell Count 15.97 k/cumm (4.4-10.8)
[2018-11-29 07:23] LABS: ALT 12 U/L (12-78); AST 9 U/L (15-37); Albumin 2.1 g/dL (3.4-5.0); Alkaline Phosphatase 75 U/L (46-116); Anion Gap 9.9 mmol/L (3-11); BUN 20 mg/dL (7-18); Bilirubin, Total 0.5 mg/dL (0.2-1.0); CO2 23.1 mmol/L (21.0-32.0); Chloride 107 mmol/L (98-107); Estimated GFR 55.23 (mL/min/1.73m2); Glucose 142 mg/dL (70-100); Potassium 3.8 mmol/L (3.5-5.1); Sodium 140 mmol/L (136-145); Total Protein 5.7 g/dL (6.4-8.2)
[2018-11-29] MEDS: Aspirin E.C. 81 MG TABEC PO (08:42)
[2018-11-29] MEDS: methylPREDNISolone SUCC 125 MG VIAL IVP (08:42)
[2018-11-29] MEDS: Pantoprazole 40 MG TABCR PO (12:40)
[2018-11-29] MEDS: Normal Saline Flush 10 ML SYR IVP ×3 (14:29→23:38)
--- NOTE | 2018-11-29 14:48 | PGE_ITS ---
Date of Service Date of service: 11/29/18 Time of Service: 15:02 Assessment and Plan (1) Right upper lobe pneumonia: Start date: 11/29/18 Start time: 15:02 Current visit: Yes Status: Acute Failed 1 month of outpatient treatment for respiratory sx and bronchitis. Was started on doxycycline in the last round and treated for influenza. He does have a history of lung ca with lobectomy. CT scan appearing to have mass like consolidation within the central right upper lobe He was started on vancomycin and zoysn after failing outpatient treatment. Also started on IV steroids, nebs and updrafts. (2) COPD (chronic obstructive pulmonary disease): Start date: 11/29/18 Start time: 15:02 Current visit: Yes Status: Acute His COPD is slightly exacerbated with acute respiratory illness and pneumonia. He will continue on IVs Solu-Medrol, he is not requiring any supplemental oxygen at this time. Oxygen level on RA is 92% Qualifiers: COPD type: COPD with acute exacerbation Qualified Code(s): J44.1 - Chronic obstructive pulmonary disease with (acute) exacerbation (3) Primary lung cancer: Start date: 11/29/18 Start time: 15:01 Current visit: Yes Status: Resolved By history this was cured by lobectomy but there is some concern with his prolonged fatigue and now masslike consolidation that may be recurrence of lung cancer. He will need to be followed by pulmonolgy as an outpatient for further workup of mass. It appears he has seen Dr. Sandhu in the past. Qualifiers: Laterality: left Qualified Code(s): C34.92 - Malignant neoplasm of unspecified part of left bronchus or lung (4) DVT prophylaxis: Start date: 11/29/18 Start time: 15:01 Current visit: Yes Status: Acute Heparin sub cu Subjective Patient reports: no new complaints Interval history since last seen: Mr. Jennings is a 68 y.o M admitted from [facility] emergency department after failing outpatient treatment for CAP for over a month with three courses of antibiotics. His last course was on doxycycline. He was admitted and started on vancomycin with zosyn given prolongation of symptoms with failed treatment. There was concern for a mass like consolidation within the central right upper lobe; given his history of lung cancer with lobectomy he will need follow up with pulmonolgy after discharge. Today he is feeling better. He is sitting up in bed breathing easily and w atching tv. He states his breathing is better and he has no wheezing with lung sounds. He does have some rhonchi. He is getting steroids, nebs, and updrafts. He is on room air and seems comfortable. His blood pressure is a little soft at 105/65, but better then when he was first admitted; we will continue his fluids at 150 an hour. He denies, SOB, chest pain, n/v and pain. Exam Const General: cooperative, healthy appearing, comfortable and no acute distress Neck Lymphatic: no lymphadenopathy noted and no lymphedema noted Chest Chest: normal inspection of the chest Resp Effort & Inspection: normal respiratory effort and able to speak in complete sentences Auscultation: rhonchi upper bilaterally and lower bilaterally Cardio Jugular venous pressure: no JVD Palpation: normal PMI Rate: regular rate Rhythm: regular rhythm Heart Sounds: S1 normal and S2 normal GI Inspection: normal to inspection Palpation: soft Auscultation: normal bowel sounds Skin General skin exam: no rashes or lesions noted Neuro General: alert, awake and oriented x3 Speech: speech normal Extrem General: normal to inspection Objective Objective Clinical Data: Abnormal lab results 11/28/18 11/28/18 11/28/18 Range/Units 14:58 14:58 14:58 WBC 27.79 H* (4.4-10.8) k/cumm RBC (4.50-6.00) m/cumm Hgb (13.5-17.5) g/dL Hct (40.0-50.0) % RDW 14.6 H (11.8-14.1) % Absolute Neutrophils 23.34 H (1.2-6.7) k/cumm Absolute Lymphocytes 0.83 L (1.2-3.4) k/cumm Absolute Monocytes 3.33 H (0.11-0.7) k/cumm PT (9.3-11.0) sec INR (0.9-1.1) Sodium 133 L (136-145) mmol/L Chloride 96 L (98-107) mmol/L BUN (7-18) mg/dL Creatinine 1.51 H (0.70-1.30) mg/dL Glucose 113 H (70-100) mg/dL Lactate 1.5 H (0.6-1.4) mmol/l Calcium (8.5-10.1) mg/dL AST 8 L (15-37) U/L Total Protein (6.4-8.2) g/dL Albumin 3.1 L (3.4-5.0) g/dL Urine Protein (Negative) mg/dL Urine Blood (Negative) Urine Urobilinogen (Up TO 0.2) EU/dL 11/28/18 11/28/18 11/29/18 Range/Units 14:58 17:22 06:45 WBC (4.4-10.8) k/cumm RBC (4.50-6.00) m/cumm Hgb (13.5-17.5) g/dL Hct (40.0-50.0) % RDW (11.8-14.1) % Absolute Neutrophils (1.2-6.7) k/cumm Absolute Lymphocytes (1.2-3.4) k/cumm Absolute Monocytes (0.11-0.7) k/cumm PT 12.0 H (9.3-11.0) sec INR 1.2 H (0.9-1.1) Sodium (136-145) mmol/L Chloride (98-107) mmol/L BUN 20 H (7-18) mg/dL Creatinine (0.70-1.30) mg/dL Glucose 142 H (70-100) mg/dL Lactate (0.6-1.4) mmol/l Calcium 8.0 L (8.5-10.1) mg/dL AST 9 L (15-37) U/L Total Protein 5.7 L (6.4-8.2) g/dL Albumin 2.1 L (3.4-5.0) g/dL Urine Protein 100 H (Negative) mg/dL Urine Blood Small H (Negative) Urine Urobilinogen 2.0 H (Up TO 0.2) EU/dL 11/29/18 Range/Units 06:45 WBC 15.97 H D (4.4-10.8) k/cumm RBC 4.03 L (4.50-6.00) m/cumm Hgb 12.3 L D (13.5-17.5) g/dL Hct 37.5 L D (40.0-50.0) % RDW 14.7 H (11.8-14.1) % Absolute Neutrophils (1.2-6.7) k/cumm Absolute Lymphocytes (1.2-3.4) k/cumm Absolute Monocytes (0.11-0.7) k/cumm PT (9.3-11.0) sec INR (0.9-1.1) Sodium (136-145) mmol/L Chloride (98-107) mmol/L BUN (7-18) mg/dL Creatinine (0.70-1.30) mg/dL Glucose (70-100) mg/dL Lactate (0.6-1.4) mmol/l Calcium (8.5-10.1) mg/dL AST (15-37) U/L Total Protein (6.4-8.2) g/dL Albumin (3.4-5.0) g/dL Urine Protein (Negative) mg/dL Urine Blood (Negative) Urine Urobilinogen (Up TO 0.2) EU/dL Vital Signs Temperature 36.7 C 11/29/18 11:25 Temperature Source Tympanic 11/29/18 11:25 Pulse 86 11/29/18 11:25 Pulse Rhythm Regular 11/29/18 08:30 Pulse 92 H 11/28/18 18:48 Respiratory Rate 20 11/29/18 11:25 Respiratory Effort Non-Labored 11/29/18 08:30 Respiratory Depth Normal 11/29/18 08:30 Respiratory Pattern Normal 11/29/18 08:30 Blood Pressure 105/65 11/29/18 11:25 Blood Pressure Mean 62 11/28/18 18:48 Pulse Oximetry 92 L 11/29/18 11:25 Oxygen Delivery Method Room Air 11/29/18 11:25 Oxygen Flow Rate 0 11/29/18 11:25 Pain Level 0 11/29/18 11:25 Comment 11/28/18 19:02 Intake & Output 11/28/18 11/29/18 11/29/18 23:59 11:59 23:59 Intake Total 2913.75 / 2913.75 1927.5 / 2277.5 350 / 2277.5 Balance 2913.75 / 2913.75 1927.5 / 2277.5 350 / 2277.5 Weight 59 kg 62.5 kg Intake: IV 2913.75 / 2913.75 1167.5 / 1217.5 50 / 1217.5 Oral 760 / 1060 300 / 1060 Other: Urine Color Yellow Yellow Urine Appearance Clear Clear Urine Odor Normal Normal Comment pt voiding ad kerri in toilet; urine not assessed at this time Voiding Methods Toilet Bedside Commode Toilet Laboratory Results WBC 15.97 k/cumm (4.4-10.8) H D 11/29/18 06:45 RBC 4.03 m/cumm (4.50-6.00) L 11/29/18 06:45 Hgb 12.3 g/dL (13.5-17.5) L D 11/29/18 06:45 Hct 37.5 % (40.0-50.0) L D 11/29/18 06:45 MCV 93.1 fL (80-95) 11/29/18 06:45 MCH 30.5 pg (27.0-33.0) 11/29/18 06:45 MCHC 32.8 g/dL (32.0-36.0) 11/29/18 06:45 RDW 14.7 % (11.8-14.1) H 11/29/18 06:45 Plt Count 207 x1000/uL (130-400) 11/29/18 06:45 MPV 9.5 fL (8.0-11.0) 11/29/18 06:45 Immature Gran % See Differential 11/28/18 14:58 Neutrophils % 84.0 11/28/18 14:58 Lymphocytes % 2.0 11/28/18 14:58 Atypical Lymphs % 1 11/28/18 14:58 Monocytes % 12.0 11/28/18 14:58 Eosinophils % 0.0 11/28/18 14:58 Basophils % 0.0 11/28/18 14:58 Metamyelocytes % 1.0 % 11/28/18 14:58 Absolute Neutrophils 23.34 k/cumm (1.2-6.7) H 11/28/18 14:58 Absolute Lymphocytes 0.83 k/cumm (1.2-3.4) L 11/28/18 14:58 Absolute Monocytes 3.33 k/cumm (0.11-0.7) H 11/28/18 14:58 Absolute Eosinophils 0.00 k/cumm (0.0-0.7) 11/28/18 14:58 Absolute Basophils 0.00 k/cumm (0.0-0.2) 11/28/18 14:58 Differential Comment Manual differential 11/28/18 14:58 RBC Morphology Normal 11/28/18 14:58 PT 12.0 sec (9.3-11.0) H 11/28/18 14:58 INR 1.2 (0.9-1.1) H 11/28/18 14:58 APTT 27.1 sec (21.0-31.4) 11/28/18 14:58 Sodium 140 mmol/L (136-145) 11/29/18 06:45 Potassium 3.8 mmol/L (3.5-5.1) 11/29/18 06:45 Chloride 107 mmol/L (98-107) 11/29/18 06:45 Carbon Dioxide 23.1 mmol/L (21.0-32.0) 11/29/18 06:45 Anion Gap 9.9 mmol/L (3-11) 11/29/18 06:45 BUN 20 mg/dL (7-18) H 11/29/18 06:45 Creatinine 1.30 mg/dL (0.70-1.30) 11/29/18 06:45 Estimated GFR/1.73 m2 55.23 (mL/min/1.73m2) 11/29/18 06:45 Glucose 142 mg/dL (70-100) H 11/29/18 06:45 Lactate 1.5 mmol/l (0.6-1.4) H 11/28/18 14:58 Calcium 8.0 mg/dL (8.5-10.1) L 11/29/18 06:45 Magnesium 1.8 mg/dL (1.8-2.4) 11/28/18 20:30 Total Bilirubin 0.5 mg/dL (0.2-1.0) 11/29/18 06:45 AST 9 U/L (15-37) L 11/29/18 06:45 ALT 12 U/L (12-78) 11/29/18 06:45 Alkaline Phosphatase 75 U/L (46-116) 11/29/18 06:45 Troponin I < 0.02 ng/mL (0.00-0.06) 11/28/18 23:25 Total Protein 5.7 g/dL (6.4-8.2) L 11/29/18 06:45 Albumin 2.1 g/dL (3.4-5.0) L 11/29/18 06:45 TSH 0.40 uIU/mL (0.358-3.74) 11/28/18 14:58 Urine Color Yellow (Yellow) 11/28/18 17:22 Urine Clarity Clear 11/28/18 17:22 Urine pH 7.0 (5-8) 11/28/18 17:22 Ur Specific [place] 1.010 (1.005-1.025) 11/28/18 17:22 Urine Protein 100 mg/dL (Negative) H 11/28/18 17:22 Urine Ketones Negative mg/dL (Negative) 11/28/18 17:22 Urine Blood Small (Negative) H 11/28/18 17:22 Urine Nitrite Negative (Negative) 11/28/18 17:22 Urine Bilirubin Negative (Negative) 11/28/18 17:22 Urine Urobilinogen 2.0 EU/dL (Up TO 0.2) H 11/28/18 17:22 Ur Leukocyte Esterase Negative (Negative) 11/28/18 17:22 Urine RBC 0-2 (0-2) 11/28/18 17:22 Urine WBC 0-2 HPF (0-5) 11/28/18 17:22 Ur Epithelial Cells Negative HPF (Negative) 11/28/18 17:22 Urine Crystals Negative HPF (Negative) 11/28/18 17:22 Urine Bacteria Negative HPF (Negative) 11/28/18 17:22 Urine Casts Negative LPF (Negative) 11/28/18 17:22 Urine Mucus Negative (Negative) 11/28/18 17:22 Urine Other Negative (Negative) 11/28/18 17:22 Ur Culture Indicated? No 11/28/18 17:22 Urine Glucose Negative mg/dL (Negative) 11/28/18 17:22
[2018-11-29] MEDS: methylPREDNISolone SUCC 125 MG VIAL 80 MG IVP ×2 (16:15→23:38)
[2018-11-29] MEDS: VANCOMYCIN 1,000 MG in Normal Saline 250 ML 166.67 MG IVPB (18:25)
--- NOTE | 2018-11-29 19:08 | PDOC.CMIN ---
Care Management Initial Assess REASON FOR HOSPITALIZATION:: Right Pneumonia failed outpatient treatment, COPD PAST MEDICAL HISTORY/PAST SURGICAL HISTORY:: Abdominal aortic aneurysm, COPD, Hyperlipidemia, Lung cancer, upper lobe, lobectomy of lung PREVIOUS FUNCTIONAL STATUS/SOCIAL/FAMILY SUPPORTS:: Hayes resides with his Chelsey in [place], [place]. He reports he is disabled due to his legs but does not explain further. He appears to warm up in interaction through encouraged conversation and shares that his agricultural production engineer, Breanna recommended he come to [facility] due to not improving at home. He is not on oxygen and reports he needed stronger antibiotics. He reports a good support network at home. CURRENT FUNCTIONAL STATUS:: Hayes is lying in bed when meets with him, he requires a bit of motivational tactics to engage, but becomes warm and pleasant in interaction as noted by joking and smiling. ADVANCE DIRECTIVES:: None on file; reports he is uninterested at this time. Has patient been provided with information about the portal?: Yes Did the patient sign up for the portal?: No CODE STATUS:: Full Code INSURANCE COVERAGE / FINANCIAL ISSUES:: Medicare CURRENT HOME/COMMUNITY SERVICES/EQUIPMENT:: Diability benefits. PRIMARY CARE PHYSICIAN:: Dr. Rylan Page. POTENTIAL DISCHARGE NEEDS:: Follow up appointments with PCP and Insulation Professional. PATIENT/FAMILY EDUCATION NEEDS:: Review of discharge instructions, discuss Ask Me Three. ANTICIPATED BARRIERS TO DISCHARGE:: None identified. TRANSPORTATION:: Via private vehicle with his . PLAN:: Hayes will return home when ready per MD. He will follow up with his PCP, Insulation Professional and plan of care as prescribed. He will transport via private vehicle with his .
[2018-11-29] MEDS: Rosuvastatin 10 MG TAB 40 MG PO (19:16)
--- NOTE | 2018-11-29 19:16 | INITIAL_ITS ---
Care Management Initial Assess REASON FOR HOSPITALIZATION:: Right Pneumonia failed outpatient treatment, COPD PAST MEDICAL HISTORY/PAST SURGICAL HISTORY:: Abdominal aortic aneurysm, COPD, Hyperlipidemia, Lung cancer, upper lobe, lobectomy of lung PREVIOUS FUNCTIONAL STATUS/SOCIAL/FAMILY SUPPORTS:: Hayes resides with his Chelsey in [place], [place]. He reports he is disabled due to his legs but does not explain further. He appears to warm up in interaction through encouraged conversation and shares that his guest services agent, Breanna recommended he come to [facility] due to not improving at home. He is not on oxygen and reports he needed stronger antibiotics. He reports a good support network at home. CURRENT FUNCTIONAL STATUS:: Hayes is lying in bed when meets with him, he requires a bit of motivational tactics to engage, but becomes warm and pleasant in interaction as noted by joking and smiling. ADVANCE DIRECTIVES:: None on file; reports he is uninterested at this time. Has patient been provided with information about the portal?: Yes Did the patient sign up for the portal?: No CODE STATUS:: Full Code INSURANCE COVERAGE / FINANCIAL ISSUES:: Medicare CURRENT HOME/COMMUNITY SERVICES/EQUIPMENT:: Diability benefits. PRIMARY CARE PHYSICIAN:: Dr. Rylan Page. POTENTIAL DISCHARGE NEEDS:: Follow up appointments with PCP and [employer] Agent. PATIENT/FAMILY EDUCATION NEEDS:: Review of discharge instructions, discuss Ask Me Three. ANTICIPATED BARRIERS TO DISCHARGE:: None identified. TRANSPORTATION:: Via private vehicle with his . PLAN:: Hayes will return home when ready per MD. He will follow up with his PCP, [employer] Agent and plan of care as prescribed. He will transport via private vehicle with his .
[2018-11-30] VITALS (8 sets, daily range): BP systolic 109–137; BP diastolic 67–72; PULSE 63–81; RESP 18–21; TEMP 35.2–37.1; O2SAT 94–96
[2018-11-30] MEDS: Normal Saline 1,000 ML 150 ML IV (03:29)
[2018-11-30] MEDS: Heparin 5,000 UNITS/ML VIAL 5000 UNITS SC ×3 (05:15→21:17)
[2018-11-30] MEDS: PIPERACILLIN/TAZO 3.375 GM in Normal Saline 50 ML IVPB ×4 (05:16→23:06)
[2018-11-30] MEDS: VANCOMYCIN 1,000 MG in Normal Saline 250 ML 166.67 MG IVPB (05:16)
[2018-11-30] MEDS: Normal Saline Flush 10 ML SYR IVP ×4 (05:16→23:07)
[2018-11-30 07:15] LABS: Anion Gap 10.7 mmol/L (3-11); BUN 19 mg/dL (7-18); CO2 22.3 mmol/L (21.0-32.0); Calcium 8.1 mg/dL (8.5-10.1); Chloride 110 mmol/L (98-107); Glucose 138 mg/dL (70-100); Magnesium 2.1 mg/dL (1.8-2.4); Potassium 3.7 mmol/L (3.5-5.1); Sodium 143 mmol/L (136-145)
[2018-11-30 07:20] LABS: Abs Immature Grans 0.06 k/cumm (0.0-0.09); Absolute Monocyte Count 0.72 k/cumm (0.11-0.7); Basophils % 0.1; HCT 34.3 % (40.0-50.0); HGB 11.2 g/dL (13.5-17.5); Immature Grans % 0.3; Lymphocytes % 2.3; Mean Corp. HGB Concentration 32.7 g/dL (32.0-36.0); Mean Corpuscular Hemoglobin 30.4 pg (27.0-33.0); Mean Platelet Volume 9.8 fL (8.0-11.0); Monocytes % 3.9; Neutrophils % 93.4; Platelet Count 219 x1000/uL (130-400); RBC 3.69 m/cumm (4.50-6.00); RBC Distribution Width 14.9 % (11.8-14.1)
[2018-11-30 07:25] LABS: Absolute Basophil Count 0.02 k/cumm (0.0-0.2); Absolute Lymphocyte Count 0.43 k/cumm (1.2-3.4); Absolute Neutrophil Count 17.28 k/cumm (1.2-6.7)
[2018-11-30] MEDS: Aspirin E.C. 81 MG TABEC PO (07:40)
[2018-11-30] MEDS: methylPREDNISolone SUCC 125 MG VIAL 80 MG IVP ×2 (07:40→19:46)
--- NOTE | 2018-11-30 09:29 | PDOC.CMPRO ---
Care Management Progress Note S/O: Hayes continues to be treated with IV ABX and steroids, IVF discontinued. He will have a repeat CXR likely as an outpatient for concern of possible return of lung cancer; he will follow up with his bill adjuster; Dr. Carlos. CM met with Hayes for a considerable amount of time after RN report of Hayes being upset by a tough conversation with his regarding life limiting illness. Hayes was pleasant in interaction and forthcoming with information. He spoke about his former work history, his friends, his habits and his thoughts about life and politics. He seemed to relax over the course of the conversation and was smiling and appropriate. He verbalized understanding of why he had heparin shots in his abdomen and provided a copy of his AD brought in by his . He did not allude to any issues around his 's visit but did share she could not stay long due to caring for a friends home and attending gnosticism. He did report he sometimes attends services at [facility] with his . He also shared that he does continue to smoke approximately five cigarettes a day. CM will continue to follow. A:68 year old male admitted to [facility] 11/28/18 for R Pneumonia failed outpatient, COPD P; Hayes will return home when ready per MD. He will follow up with his PCP, Permit Agent and plan of care as prescribed. He will transport via private vehicle with his .
--- NOTE | 2018-11-30 09:33 | CMPROGNOTE_ITS ---
Care Management Progress Note S/O: Hayes continues to be treated with IV ABX and steroids, IVF discontinued. He will have a repeat CXR likely as an outpatient for concern of possible return of lung cancer; he will follow up with his dry mill worker; Dr. Carlos. CM met with Hayes for a considerable amount of time after RN report of Hayes being upset by a tough conversation with his regarding life limiting illness. Hayes was pleasant in interaction and forthcoming with information. He spoke about his former work history, his friends, his habits and his thoughts about life and politics. He seemed to relax over the course of the conversation and was smiling and appropriate. He verbalized understanding of why he had heparin shots in his abdomen and provided a copy of his AD brought in by his . He did not allude to any issues around his 's visit but did share she could not stay long due to caring for a friends home and attending spiritism. He did report he sometimes attends services at [facility] with his . He also shared that he does continue to smoke approximately five cigarettes a day. CM will continue to follow. A:68 year old male admitted to [facility] 11/28/18 for R Pneumonia failed outpatient, COPD P; Hayes will return home when ready per MD. He will follow up with his PCP, Water Resources Project Manager and plan of care as prescribed. He will transport via private vehicle with his .
--- NOTE | 2018-11-30 10:38 | W.PM.PROGNOT ---
Date of Service Date of service: 11/30/18 Time of Service: 10:56 Assessment and Plan (1) Right upper lobe pneumonia: Current visit: Yes Status: Acute Failed 1 month of outpatient treatment for respiratory sx and bronchitis. Day 2 of vancomycin and zosyn. Continue nebs, updrafts and steroids. Lungs are sounding better and breathing is easier. RA at 92-95% (2) COPD (chronic obstructive pulmonary disease): Current visit: Yes Status: Acute His COPD is slightly exacerbated with acute respiratory illness and pneumonia. He will continue on IVs Solu-Medrol, he is not requiring any supplemental oxygen at this time. Oxygen level on RA is 92% Qualifiers: COPD type: COPD with acute exacerbation Qualified Code(s): J44.1 - Chronic obstructive pulmonary disease with (acute) exacerbation (3) Primary lung cancer: Current visit: Yes Status: Resolved By history this was cured by lobectomy but there is some concern with his prolonged fatigue and now masslike consolidation that may be recurrence of lung cancer. He will need to be followed by pulmonolgy as an outpatient for further workup of mass. with a repeat CT scan 4-6 weeks. Qualifiers: Laterality: left Qualified Code(s): C34.92 - Malignant neoplasm of unspecified part of left bronchus or lung (4) DVT prophylaxis: Current visit: Yes Status: Acute Heparin sub cu Subjective Patient reports: no new complaints Interval history since last seen: Mr. Jennings is a 68 y.o M admitted from [facility] emergency department after failing outpatient treatment for CAP for over a month with three courses of antibiotics. His last course was on doxycycline. He was admitted and started on vancomycin with zosyn given prolongation of symptoms with failed treatment. There was concern for a mass like consolidation within the central right upper lobe; given his history of lung cancer with lobectomy he will need follow up with pulmonolgy after discharge. Today he is feeling better and breathing easier. He does have scattered expiratory wheezing but no SOB or CP. He is not requiring oxygen and afebrile. His wbc are elevated but have been in the setting of steroids. His mentioned palliative care this am as his primary recommended he see them, he was a little upset at this point but it was further explained to him about palliative care and the benefits of it. He is open to speaking with them, it was explained that he will need a follow up for his CT scan in about 4-6 weeks to reevaluate the mass like consolidation. He denies, CP, SOB, n/v/d. Exam Const General: cooperative, healthy appearing, comfortable and no acute distress Neck Lymphatic: no lymphadenopathy noted and no lymphedema noted Chest Chest: normal inspection of the chest Resp Effort & Inspection: normal respiratory effort and able to speak in complete sentences Auscultation: rhonchi upper bilaterally and lower bilaterally and wheezes (scattered) expiratory wheezes Cardio Jugular venous pressure: no JVD Palpation: normal PMI Rate: regular rate Rhythm: regular rhythm Heart Sounds: S1 normal and S2 normal GI Inspection: normal to inspection Palpation: soft Auscultation: normal bowel sounds Skin General skin exam: no rashes or lesions noted Neuro General: alert, awake and oriented x3 Speech: speech normal Extrem General: normal to inspection Objective Objective Clinical Data: Abnormal lab results 11/30/18 11/30/18 Range/Units 06:45 06:45 WBC 18.50 H (4.4-10.8) k/cumm RBC 3.69 L (4.50-6.00) m/cumm Hgb 11.2 L (13.5-17.5) g/dL Hct 34.3 L (40.0-50.0) % RDW 14.9 H (11.8-14.1) % Absolute Neutrophils 17.28 H (1.2-6.7) k/cumm Absolute Lymphocytes 0.43 L (1.2-3.4) k/cumm Absolute Monocytes 0.72 H (0.11-0.7) k/cumm Chloride 110 H (98-107) mmol/L BUN 19 H (7-18) mg/dL Glucose 138 H (70-100) mg/dL Calcium 8.1 L (8.5-10.1) mg/dL Vital Signs Temperature 37.1 C 11/30/18 08:24 Temperature Source Skin 11/30/18 08:24 Pulse 81 11/30/18 08:24 Pulse Rhythm Regular 11/30/18 08:31 Pulse 92 H 11/28/18 18:48 Respiratory Rate 20 11/30/18 08:24 Respiratory Effort Non-Labored 11/30/18 08:31 Respiratory Depth Normal 11/30/18 08:31 Respiratory Pattern Normal 11/30/18 08:31 Blood Pressure 123/69 11/30/18 08:24 Blood Pressure Mean 62 11/28/18 18:48 Pulse Oximetry 95 11/30/18 08:24 Oxygen Delivery Method Room Air 11/30/18 08:24 Oxygen Flow Rate 0 11/30/18 08:24 Pain Level 0 11/30/18 08:24 Comment 11/28/18 19:02 Intake & Output 11/29/18 11/29/18 11/30/18 11:59 23:59 11:59 Intake Total 1927.5 / 3817.5 1890 / 3817.5 1540 / 1540 Balance 1927.5 / 3817.5 1890 / 3817.5 1540 / 1540 Weight 62.5 kg 62.4 kg Intake: IV 1167.5 / 2517.5 1350 / 2517.5 1060 / 1060 Oral 760 / 1300 540 / 1300 480 / 480 Other: Urine Color Yellow Pale Yellow Urine Appearance Clear Clear Urine Odor Normal None Comment voids independently in the tiolet pt voiding ad kerri in bathroom, urine not assessed at this time Voiding Methods Bedside Commode Toilet Toilet Laboratory Results WBC 18.50 k/cumm (4.4-10.8) H 11/30/18 06:45 RBC 3.69 m/cumm (4.50-6.00) L 11/30/18 06:45 Hgb 11.2 g/dL (13.5-17.5) L 11/30/18 06:45 Hct 34.3 % (40.0-50.0) L 11/30/18 06:45 MCV 93.0 fL (80-95) 11/30/18 06:45 MCH 30.4 pg (27.0-33.0) 11/30/18 06:45 MCHC 32.7 g/dL (32.0-36.0) 11/30/18 06:45 RDW 14.9 % (11.8-14.1) H 11/30/18 06:45 Plt Count 219 x1000/uL (130-400) 11/30/18 06:45 MPV 9.8 fL (8.0-11.0) 11/30/18 06:45 Immature Gran % 0.3 11/30/18 06:45 Neutrophils % 93.4 11/30/18 06:45 Lymphocytes % 2.3 11/30/18 06:45 Atypical Lymphs % 1 11/28/18 14:58 Monocytes % 3.9 11/30/18 06:45 Eosinophils % 0.0 11/30/18 06:45 Basophils % 0.1 11/30/18 06:45 Metamyelocytes % 1.0 % 11/28/18 14:58 Absolute Neutrophils 17.28 k/cumm (1.2-6.7) H 11/30/18 06:45 Absolute Lymphocytes 0.43 k/cumm (1.2-3.4) L 11/30/18 06:45 Absolute Monocytes 0.72 k/cumm (0.11-0.7) H 11/30/18 06:45 Absolute Eosinophils 0.00 k/cumm (0.0-0.7) 11/30/18 06:45 Absolute Basophils 0.02 k/cumm (0.0-0.2) 11/30/18 06:45 Differential Comment Manual differential 11/28/18 14:58 RBC Morphology Normal 11/28/18 14:58 PT 12.0 sec (9.3-11.0) H 11/28/18 14:58 INR 1.2 (0.9-1.1) H 11/28/18 14:58 APTT 27.1 sec (21.0-31.4) 11/28/18 14:58 Sodium 143 mmol/L (136-145) 11/30/18 06:45 Potassium 3.7 mmol/L (3.5-5.1) 11/30/18 06:45 Chloride 110 mmol/L (98-107) H 11/30/18 06:45 Carbon Dioxide 22.3 mmol/L (21.0-32.0) 11/30/18 06:45 Anion Gap 10.7 mmol/L (3-11) 11/30/18 06:45 BUN 19 mg/dL (7-18) H 11/30/18 06:45 Creatinine 1.20 mg/dL (0.70-1.30) 11/30/18 06:45 Estimated GFR/1.73 m2 >= 60.00 (mL/min/1.73m2) 11/30/18 06:45 Glucose 138 mg/dL (70-100) H 11/30/18 06:45 Lactate 1.5 mmol/l (0.6-1.4) H 11/28/18 14:58 Calcium 8.1 mg/dL (8.5-10.1) L 11/30/18 06:45 Magnesium 2.1 mg/dL (1.8-2.4) 11/30/18 06:45 Total Bilirubin 0.5 mg/dL (0.2-1.0) 11/29/18 06:45 AST 9 U/L (15-37) L 11/29/18 06:45 ALT 12 U/L (12-78) 11/29/18 06:45 Alkaline Phosphatase 75 U/L (46-116) 11/29/18 06:45 Troponin I < 0.02 ng/mL (0.00-0.06) 11/28/18 23:25 Total Protein 5.7 g/dL (6.4-8.2) L 11/29/18 06:45 Albumin 2.1 g/dL (3.4-5.0) L 11/29/18 06:45 TSH 0.40 uIU/mL (0.358-3.74) 11/28/18 14:58 Urine Color Yellow (Yellow) 11/28/18 17:22 Urine Clarity Clear 11/28/18 17:22 Urine pH 7.0 (5-8) 11/28/18 17:22 Ur Specific [place] 1.010 (1.005-1.025) 11/28/18 17:22 Urine Protein 100 mg/dL (Negative) H 11/28/18 17:22 Urine Ketones Negative mg/dL (Negative) 11/28/18 17:22 Urine Blood Small (Negative) H 11/28/18 17:22 Urine Nitrite Negative (Negative) 11/28/18 17:22 Urine Bilirubin Negative (Negative) 11/28/18 17:22 Urine Urobilinogen 2.0 EU/dL (Up TO 0.2) H 11/28/18 17:22 Ur Leukocyte Esterase Negative (Negative) 11/28/18 17:22 Urine RBC 0-2 (0-2) 11/28/18 17:22 Urine WBC 0-2 HPF (0-5) 11/28/18 17:22 Ur Epithelial Cells Negative HPF (Negative) 11/28/18 17:22 Urine Crystals Negative HPF (Negative) 11/28/18 17:22 Urine Bacteria Negative HPF (Negative) 11/28/18 17:22 Urine Casts Negative LPF (Negative) 11/28/18 17:22 Urine Mucus Negative (Negative) 11/28/18 17:22 Urine Other Negative (Negative) 11/28/18 17:22 Ur Culture Indicated? No 11/28/18 17:22 Urine Glucose Negative mg/dL (Negative) 11/28/18 17:22
--- NOTE | 2018-11-30 12:27 | PHARADMIT ---
Addendum entered by Shereen Mcfarland 12/01/18 14:52: Pharmacy Note Subjective improving per morning report, pt wanted anticoagulation to be discontinued per nursing report Objective BP-146/73 temp-35.8 other VS okay WBC-16.24(down) Assessment methylprednisolone dose decreased to 60 mg Q12H vanco and zosyn continued (day4 starts this evening) Plan vanco trough was 20.7 yesterday so dose adjusted to 1000 mg Q14H to target a trough of 15.6 Original Note: Admission Pharmacy Clinical Review R SIDED PNEUMONIA-failed outpt treatment, COPD Code Status Full Code Current Weight 62.4 kg Renally Cleared and Narrow Therapeutic Index Meds CrCl~53ml/min QTc Value / Action Taken BP Control, Fever BP 123/69 Afebrile Electrolytes reviewed in range DVT Prophylaxis Heparin SC Opiate Usage / Scheduled Bowel Regimen Ordered none Plt/SCr for Heparin / Enoxaparin Plt 219 SCr 1.2 INR for Warfarin H/H stable, WBC/Bands H/H 11.2/34.3 WBC 18.5 ([id number]) Antibiotic appropriateness Zosyn/Vanco day#2 Cultures and Sensitivities Micro blood: no growth x24h Surgical ABX d/c within 24 hr DM control / Insulin Dosing BG 138 Heart Failure (Check EF%) (BREEZY's, B-Block, Diuretics) none IV to PO Switch Protonix IV to oral per shortage Home Meds Reviewed Home Meds Not Ordered Girish Branham Comments IVF's dc'd Vanco trough tonight @ 5pm 11/30/18 (after hours [facility] will get the results)
[2018-11-30] MEDS: Pantoprazole 40 MG TABCR PO (12:39)
[2018-11-30 18:00] LABS: Vancomycin, Trough 20.7 ug/mL (10.0-20.0)
[2018-11-30] MEDS: Rosuvastatin 10 MG TAB 40 MG PO (19:46)
[2018-12-01] VITALS (9 sets, daily range): BP systolic 118–160; BP diastolic 71–85; PULSE 56–92; RESP 16–20; TEMP 35.6–36.4; O2SAT 89–99
[2018-12-01] MEDS: PIPERACILLIN/TAZO 3.375 GM in Normal Saline 50 ML IVPB ×4 (05:24→23:15)
[2018-12-01] MEDS: Heparin 5,000 UNITS/ML VIAL 5000 UNITS SC ×3 (05:24→21:17)
[2018-12-01 07:09] LABS: Abs Immature Grans 0.07 k/cumm (0.0-0.09); Basophils % 0.1; HCT 34.7 % (40.0-50.0); HGB 11.5 g/dL (13.5-17.5); Immature Grans % 0.4; Lymphocytes % 2.2; Mean Corp. HGB Concentration 33.1 g/dL (32.0-36.0); Mean Corpuscular Hemoglobin 30.9 pg (27.0-33.0); Mean Corpuscular Volume 93.3 fL (80-95); Mean Platelet Volume 9.5 fL (8.0-11.0); Monocytes % 4.6; Neutrophils % 92.7; Platelet Count 238 x1000/uL (130-400); RBC 3.72 m/cumm (4.50-6.00); White Blood Cell Count 16.24 k/cumm (4.4-10.8)
[2018-12-01 07:12] LABS: Absolute Basophil Count 0.02 k/cumm (0.0-0.2); Absolute Lymphocyte Count 0.36 k/cumm (1.2-3.4); Absolute Monocyte Count 0.75 k/cumm (0.11-0.7); Absolute Neutrophil Count 15.05 k/cumm (1.2-6.7)
[2018-12-01 07:28] LABS: Anion Gap 10.8 mmol/L (3-11); BUN 19 mg/dL (7-18); CO2 24.2 mmol/L (21.0-32.0); CREATININE 1.27 mg/dL (0.70-1.30); Calcium 8.3 mg/dL (8.5-10.1); Chloride 108 mmol/L (98-107); Estimated GFR 56.74 (mL/min/1.73m2); Glucose 124 mg/dL (70-100); Magnesium 2.2 mg/dL (1.8-2.4); Potassium 3.7 mmol/L (3.5-5.1); Sodium 143 mmol/L (136-145)
[2018-12-01] MEDS: methylPREDNISolone SUCC 125 MG VIAL 80 MG IVP (07:35)
[2018-12-01] MEDS: Aspirin E.C. 81 MG TABEC PO (07:36)
[2018-12-01] MEDS: Normal Saline Flush 10 ML SYR IVP ×5 (07:36→21:18)
[2018-12-01] MEDS: VANCOMYCIN 1,000 MG in Normal Saline 250 ML 250 MG IVPB ×2 (07:45→21:17)
--- NOTE | 2018-12-01 09:19 | PDOC.CMPRO ---
Care Management Progress Note S/O: Hayes continues to be treated with IV ABX and steroids. He will have a repeat CXR today. Anticipate he will have Palliative Care consult once PC MD available; CM spoke with Homar at the Palliative Care office who reported she had outreached to Dr. Matute, awaiting a call back. She also shared that Dr. Metcalf should be available tomorrow. Hayes shared that he continues to smoke approximately five cigarettes a day; CM notified provider, Milla, BID MANAGER to discern whether order for nicotene replacement would be appropriate. Hayes remains pleasant in interaction. CM will continue to follow. A:68 year old male admitted to [facility] 11/28/18 for R Pneumonia failed outpatient, COPD P: Hayes will return home when ready per MD. He will follow up with his PCP, as well as follow up with his director of estate; Dr. Carlos and plan of care as prescribed. He will transport via private vehicle with his .
--- NOTE | 2018-12-01 11:35 | CMPROGNOTE_ITS ---
Care Management Progress Note S/O: Hayes continues to be treated with IV ABX and steroids. He will have a repeat CXR today. Anticipate he will have Palliative Care consult once PC MD available; CM spoke with Homar at the Palliative Care office who reported she had outreached to Dr. Matute, awaiting a call back. She also shared that Dr. Metcalf should be available tomorrow. Hayes shared that he continues to smoke approximately five cigarettes a day; CM notified provider, Milla, DBA MANAGER to discern whether order for nicotene replacement would be appropriate. Hayes remains pleasant in interaction. CM will continue to follow. A:68 year old male admitted to [facility] 11/28/18 for R Pneumonia failed outpatient, COPD P: Hayes will return home when ready per MD. 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 Carlos and plan of care as prescribed. He will transport via private vehicle with his .
[2018-12-01] MEDS: Pantoprazole 40 MG TABCR PO (11:40)
--- NOTE | 2018-12-01 12:51 | NUR.NOTE ---
Nursing Note: 1251: pt informs RN that his right third toe was injured when the IV pole ran over my foot, but it's fine. RN inspects foot; redness noted, slit on third toe. pt declines bandaid at this time. continue to monitor.
--- NOTE | 2018-12-01 14:06 | W.PM.PROGNOT ---
Date of Service Date of service: 12/01/18 Time of Service: 14:13 Assessment and Plan (1) Right upper lobe pneumonia: Start date: 12/01/18 Start time: 14:06 Current visit: Yes Status: Acute Failed 1 month of outpatient treatment for respiratory sx and bronchitis. Day 3 of vancomycin and zosyn. On RA at 96%. Taper steroids as lung sounds are improving. No crackles, rhonchi that is improving, no wheezing today. Continue nebs, updrafts and inhaled steroid. (2) COPD (chronic obstructive pulmonary disease): Start date: 12/01/18 Start time: 14:08 Current visit: Yes Status: Acute His COPD is slightly exacerbated with acute respiratory illness and pneumonia. Improving lung sounds and over all breathing. RA sat is 96%, see above Qualifiers: COPD type: COPD with acute exacerbation Qualified Code(s): J44.1 - Chronic obstructive pulmonary disease with (acute) exacerbation (3) Primary lung cancer: Start date: 12/01/18 Start time: 14:12 Current visit: Yes Status: Resolved By history this was cured by lobectomy but there is some concern with his prolonged fatigue and now masslike consolidation that may be recurrence of lung cancer. He will need to be followed by pulmonolgy as an outpatient for further workup of mass. with a repeat CT scan 4-6 weeks. Qualifiers: Laterality: left Qualified Code(s): C34.92 - Malignant neoplasm of unspecified part of left bronchus or lung (4) DVT prophylaxis: Start date: 12/01/18 Start time: 14:12 Current visit: Yes Status: Acute Heparin sub cu, refusing teds and scds. Subjective Patient reports: no new complaints Interval history since last seen: Mr. Jennings is a 68 y.o M admitted from [facility] emergency department after failing outpatient treatment for CAP for over a month with three courses of antibiotics. His last course was on doxycycline. He was admitted and started on vancomycin with zosyn given prolongation of symptoms with failed treatment. There was concern for a mass like consolidation within the central right upper lobe; given his history of lung cancer with lobectomy he will need follow up with pulmonolgy after discharge. Today his lung sounds are improved. NO wheezing or crackles. His RA sat is 96%. He has been ambulatory in the hallway maintaining sats. Day 3 antibiotics, taper his steroid as lungs sounds improving. +1 edema to bilateral extremities he is receiving steroids. Continue updraft, nebs and inhaled steroid. He denies CP, SOB, n/v/d. Afebrile. Exam Const General: cooperative, healthy appearing, comfortable and no acute distress Neck Lymphatic: no lymphadenopathy noted and no lymphedema noted Chest Chest: normal inspection of the chest Resp Effort & Inspection: normal respiratory effort and able to speak in complete sentences Auscultation: rhonchi upper bilaterally and lower bilaterally Other: improving Cardio Jugular venous pressure: no JVD Palpation: normal PMI Rate: regular rate Rhythm: regular rhythm Heart Sounds: S1 normal and S2 normal GI Inspection: normal to inspection Palpation: soft Auscultation: normal bowel sounds Skin General skin exam: no rashes or lesions noted Neuro General: alert, awake and oriented x3 Speech: speech normal Extrem Other: +1 edema Objective Objective Clinical Data: Abnormal lab results 11/30/18 12/01/18 12/01/18 Range/Units 17:05 06:50 06:50 WBC 16.24 H (4.4-10.8) k/cumm RBC 3.72 L (4.50-6.00) m/cumm Hgb 11.5 L (13.5-17.5) g/dL Hct 34.7 L (40.0-50.0) % RDW 15.0 H (11.8-14.1) % Absolute Neutrophils 15.05 H (1.2-6.7) k/cumm Absolute Lymphocytes 0.36 L (1.2-3.4) k/cumm Absolute Monocytes 0.75 H (0.11-0.7) k/cumm Chloride 108 H (98-107) mmol/L BUN 19 H (7-18) mg/dL Glucose 124 H (70-100) mg/dL Calcium 8.3 L (8.5-10.1) mg/dL Vancomycin Trough 20.7 H* (10.0-20.0) ug/mL Vital Signs Temperature 35.8 C L 12/01/18 12:26 Temperature Source Tympanic 12/01/18 12:26 Pulse 61 12/01/18 12:26 Pulse Rhythm Regular 12/01/18 08:15 Pulse 92 H 11/28/18 18:48 Respiratory Rate 18 12/01/18 12:26 Respiratory Effort Non-Labored 12/01/18 08:15 Respiratory Depth Normal 12/01/18 08:15 Respiratory Pattern Normal 12/01/18 08:15 Blood Pressure 146/73 H 12/01/18 12:26 Blood Pressure Mean 62 11/28/18 18:48 Pulse Oximetry 96 12/01/18 12:26 Oxygen Delivery Method Room Air 12/01/18 12:26 Oxygen Flow Rate 0 12/01/18 12:26 Pain Level 0 12/01/18 03:30 Comment 12/01/18 03:30 Intake & Output 11/30/18 12/01/18 12/01/18 23:59 11:59 23:59 Intake Total 700 / 3790 640 / 940 300 / 940 Balance 700 / 3790 640 / 940 300 / 940 Weight 64.8 kg Intake: IV 220 / 2580 70 / 370 300 / 370 Oral 480 / 1210 570 / 570 Other: Urine Color Yellow Urine Appearance Clear Urine Odor None Comment urine not seen at this time however pt voiced no urinary issues pt voiding ad kerri. pt denies any GI or issues at this time. urine not assessed by RN Voiding Methods Toilet Toilet Laboratory Results WBC 16.24 k/cumm (4.4-10.8) H 12/01/18 06:50 RBC 3.72 m/cumm (4.50-6.00) L 12/01/18 06:50 Hgb 11.5 g/dL (13.5-17.5) L 12/01/18 06:50 Hct 34.7 % (40.0-50.0) L 12/01/18 06:50 MCV 93.3 fL (80-95) 12/01/18 06:50 MCH 30.9 pg (27.0-33.0) 12/01/18 06:50 MCHC 33.1 g/dL (32.0-36.0) 12/01/18 06:50 RDW 15.0 % (11.8-14.1) H 12/01/18 06:50 Plt Count 238 x1000/uL (130-400) 12/01/18 06:50 MPV 9.5 fL (8.0-11.0) 12/01/18 06:50 Immature Gran % 0.4 12/01/18 06:50 Neutrophils % 92.7 12/01/18 06:50 Lymphocytes % 2.2 12/01/18 06:50 Atypical Lymphs % 1 11/28/18 14:58 Monocytes % 4.6 12/01/18 06:50 Eosinophils % 0.0 12/01/18 06:50 Basophils % 0.1 12/01/18 06:50 Metamyelocytes % 1.0 % 11/28/18 14:58 Absolute Neutrophils 15.05 k/cumm (1.2-6.7) H 12/01/18 06:50 Absolute Lymphocytes 0.36 k/cumm (1.2-3.4) L 12/01/18 06:50 Absolute Monocytes 0.75 k/cumm (0.11-0.7) H 12/01/18 06:50 Absolute Eosinophils 0.00 k/cumm (0.0-0.7) 12/01/18 06:50 Absolute Basophils 0.02 k/cumm (0.0-0.2) 12/01/18 06:50 Differential Comment Manual differential 11/28/18 14:58 RBC Morphology Normal 11/28/18 14:58 PT 12.0 sec (9.3-11.0) H 11/28/18 14:58 INR 1.2 (0.9-1.1) H 11/28/18 14:58 APTT 27.1 sec (21.0-31.4) 11/28/18 14:58 Sodium 143 mmol/L (136-145) 12/01/18 06:50 Potassium 3.7 mmol/L (3.5-5.1) 12/01/18 06:50 Chloride 108 mmol/L (98-107) H 12/01/18 06:50 Carbon Dioxide 24.2 mmol/L (21.0-32.0) 12/01/18 06:50 Anion Gap 10.8 mmol/L (3-11) 12/01/18 06:50 BUN 19 mg/dL (7-18) H 12/01/18 06:50 Creatinine 1.27 mg/dL (0.70-1.30) 12/01/18 06:50 Estimated GFR/1.73 m2 56.74 (mL/min/1.73m2) 12/01/18 06:50 Glucose 124 mg/dL (70-100) H 12/01/18 06:50 Lactate 1.5 mmol/l (0.6-1.4) H 11/28/18 14:58 Calcium 8.3 mg/dL (8.5-10.1) L 12/01/18 06:50 Magnesium 2.2 mg/dL (1.8-2.4) 12/01/18 06:50 Total Bilirubin 0.5 mg/dL (0.2-1.0) 11/29/18 06:45 AST 9 U/L (15-37) L 11/29/18 06:45 ALT 12 U/L (12-78) 11/29/18 06:45 Alkaline Phosphatase 75 U/L (46-116) 11/29/18 06:45 Troponin I < 0.02 ng/mL (0.00-0.06) 11/28/18 23:25 Total Protein 5.7 g/dL (6.4-8.2) L 11/29/18 06:45 Albumin 2.1 g/dL (3.4-5.0) L 11/29/18 06:45 TSH 0.40 uIU/mL (0.358-3.74) 11/28/18 14:58 Urine Color Yellow (Yellow) 11/28/18 17:22 Urine Clarity Clear 11/28/18 17:22 Urine pH 7.0 (5-8) 11/28/18 17:22 Ur Specific [place] 1.010 (1.005-1.025) 11/28/18 17:22 Urine Protein 100 mg/dL (Negative) H 11/28/18 17:22 Urine Ketones Negative mg/dL (Negative) 11/28/18 17:22 Urine Blood Small (Negative) H 11/28/18 17:22 Urine Nitrite Negative (Negative) 11/28/18 17:22 Urine Bilirubin Negative (Negative) 11/28/18 17:22 Urine Urobilinogen 2.0 EU/dL (Up TO 0.2) H 11/28/18 17:22 Ur Leukocyte Esterase Negative (Negative) 11/28/18 17:22 Urine RBC 0-2 (0-2) 11/28/18 17:22 Urine WBC 0-2 HPF (0-5) 11/28/18 17:22 Ur Epithelial Cells Negative HPF (Negative) 11/28/18 17:22 Urine Crystals Negative HPF (Negative) 11/28/18 17:22 Urine Bacteria Negative HPF (Negative) 11/28/18 17:22 Urine Casts Negative LPF (Negative) 11/28/18 17:22 Urine Mucus Negative (Negative) 11/28/18 17:22 Urine Other Negative (Negative) 11/28/18 17:22 Ur Culture Indicated? No 11/28/18 17:22 Urine Glucose Negative mg/dL (Negative) 11/28/18 17:22 Vancomycin Trough 20.7 ug/mL (10.0-20.0) H* 11/30/18 17:05
--- NOTE | 2018-12-01 14:15 | CHAPLAIN ---
Hayes was just returning from walking with PT when I visited. After introducing myself, he tells me he has his own traveling phlebotomist, and after a few more questions, Hayes tells me that he attends the [facility] [employer] and his his traveling phlebotomist, Rev. Wellington Montenegro, knows he his here. An elder from the latter-day also visits each night to pray with him. Hayes is very happy with his latter-day and feels welcomed and supported by the yazidi seems to be well supported spiritually.
--- NOTE | 2018-12-01 15:58 | PT.INTREAT ---
Date of service: 12/01/18 Time of Service: 15:58 PT Notes Inpatient Physical Therapy Treatment Note [facility] Date: 12/01/18 PRECAUTIONS: Fall SUBJECTIVE: Hayes reports that he is feeling pretty good today, he reports that he has been up walking around the floor and in his room independently. OBJECTIVE: PAIN: No c/o pain BED MOBILITY/TRANSFERS Sit-stand: I Stand-sit:I GAIT Assistive Device: No AD Weight bearing: Full Assist: I Distance: 100' Deviation: Observed ambulating independently in hallway VITALS: SaO2: 88-96% on RA with activity THEREX: Patient utilized NuStep on L4 for 2.5 minutes, with minimal supervision. STAIRS: Up/down 20 x6 using 1 rail and a step-to pattern with supervision. ASSESSMENT: Patient tolerated session well, without complaint. He demonstrates independence with gait and transfers at this time. He was able to completed stair training, while maintaining oxygen saturations that were WFL. PLAN: As per primary PT TREATMENT CODE/TIME: 15 minutes; [id number]
--- NOTE | 2018-12-01 16:59 | PT.INIE ---
Date of service: 12/01/18 Time of Service: 11:06 PT Notes Inpatient Physical Therapy Evaluation Date: 12/01/2018 Referring Doctor: Ailyn Duong NP PT Orders: PT CONSULT: Improve mobility in setting of infection Precautions: Fall. Standard. Patient Profile/Admitting Diagnosis: Patient is a 68-year-old male admitted to this hospital on 11/28/2018 with initial complaints of recurrent respiratory symptoms and generalized fatigue for the past 1 month. He is diagnosed with right lower lobe pneumonia and COPD exacerbation. Referral is received today for functional mobility training, patient education and training in better breathing techniques, and for increasing activity tolerance for mobility ADL performance. PMHX: Medical History Abdominal aortic aneurysm (AAA) (Chronic) COPD (chronic obstructive pulmonary disease) (Chronic) Hyperlipidemia (Chronic) Lung cancer, upper lobe (Resolved) Surgical History S/P lobectomy of lung (Resolved) Social History/Home Situation: Patient lives with in a 2 floor house with 2 steps to enter to get into porch with no rails on either side. He states that he has 14 steps to the second floor with rails on both sides to get to his bedroom. He further states that previously he has not used any assistive ambulatory devices nor any adaptive equipment. He has been independent with all aspects of ADLs. 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 Subjective: Patient is pleasant and cooperative. Denies any headache nor chest pain nor back pain. Patient was agreeable for PT to participate in said session as part of physical therapy evaluation and treatment. Objective: General Observation: Patient seen walking with respiratory therapist for this session. Grade 1 edema to bilateral feet with erythema to dorsum of toes on both sides. Mental Status: Alert and oriented x3. Pain: 0/10 ROM: Right Upper Extremity: WFL Left Upper Extremity: WFL Right Lower Extremity: WFL Left Lower Extremity: WFL Strength: Right Upper Extremity: WFL Left Upper Extremity: WFL Right Lower Extremity: All major muscle groups at 4+/5. Ankle plantar flexors and ankle dorsiflexors 5/5. Left Lower Extremity: All major muscle groups at 4+/5. Ankle plantar flexors and ankle dorsiflexors 5/5. Sensation: Intact to BLE as to pain and pressure Bed Mobility/Transfers: [] Gait: Patient was able to complete 50 feet of level surface ambulation x2 with SBA provided full weight bearing on B LE no assistive device needed. Oxygen saturation dipped down to 89% but was able to go back up to above 90% on room air with pursed lip breathing. Balance: Static Sitting: Good Dynamic Sitting: Good Static Standing: Good Dynamic Standing: Fair Special Tests: Mobility Limitations Standardized Measure [facility] 6 clicks Basic Mobility Inpatient Short Form: Raw Score: 22 CMS Score: 21 % deficit 4-Stage Balance Test. Patient was able to independently assume positions 1 and 2 for 10 seconds each but was unable to assume position 3 the tandem stance as well as the one-legged stance without contact-guard assist. Informed Consent/Education: Patient instructed in purpose of PT consult and plan of care. Assessment: Patient is a 68 year old male referred to physical therapy services with the diagnosis of progression of right lower lobe pneumonia and COPD exacerbation. Patient presents with clinical signs and symptoms consistent with current/admitting diagnoses that have resulted to mobility limitations, gait instability, and generalized weakness as demonstrated by the following impairment level findings: 1. Impaired balance 2. Impaired activity tolerance due to respiratory infection Impairments are contributing to the following functional limitations: 1. Increase completion time for mobility ADL performance 2. Increased fall risk 3. Inability to negotiate steps without dyspnea or complaints of fatigue Patient is assessed as a Low 67998 complexity based on the following: History: 68-year-old male with right upper lobe pneumonia and and COPD exacerbation with past medical history of right lung CA status post lobectomy with complaints of recurrent respiratory symptoms and generalized fatigue fatigue for the past month Examination: Underlying impairments and functional deficits with AMPAC score of 22 and an equivalent CMS score of 21% deficit Presentation: Stable Decision Makin low complexity Goals: Goals X1 week 1. Independent gait on level surfaces without assistive device at least 300 feet without report of dyspnea and with SaO2 staying above 90% on room air 2. Independent stairs while holding onto bilateral rails for at least 14 steps without report of dyspnea and with SaO2 staying above 90% on room air 3. Independent with home exercise program 4. Patient will perform tandem stance and one legged stance for 10 seconds on each leg independently and without LOB in order to reduce fall risk. Plan of Care/Treatment Plan: 1-2x/day, 7 days/week x 1 week. Plan of care has been reviewed with the LIDAR SCIENTIST providing the service under Physical Therapy direction. Initiate Physical Therapy intervention for strengthening, bed mobility, transfers, gait, stairs, balance training, use of assistive device. DISCHARGE RECOMMENDATIONS: No anticipated equipment needs. May benefit from short-term home health PT services for the [facility]. TREATMENT CODE/TIME: 59445 29 minutes beginning at 11:06 AM. Thank you very much for this referral. Joyce Figueroa, PT, DPT, CLT [facility]
--- NOTE | 2018-12-01 17:10 | IN_ITS ---
Date of service: 12/01/18 Time of Service: 11:06 PT Notes Inpatient Physical Therapy Evaluation Date: 12/01/2018 Referring Doctor: Ailyn Duong NP PT Orders: PT CONSULT: Improve mobility in setting of infection Precautions: Fall. Standard. Patient Profile/Admitting Diagnosis: Patient is a 68-year-old male admitted to this hospital on 11/28/2018 with initial complaints of recurrent respiratory symptoms and generalized fatigue for the past 1 month. He is diagnosed with right lower lobe pneumonia and COPD exacerbation. Referral is received today for functional mobility training, patient education and training in better breathing techniques, and for increasing activity tolerance for mobility ADL performance. PMHX: Medical History Abdominal aortic aneurysm (AAA) (Chronic) COPD (chronic obstructive pulmonary disease) (Chronic) Hyperlipidemia (Chronic) Lung cancer, upper lobe (Resolved) Surgical History S/P lobectomy of lung (Resolved) Social History/Home Situation: Patient lives with in a 2 floor house with 2 steps to enter to get into porch with no rails on either side. He states that he has 14 steps to the second floor with rails on both sides to get to his bedroom. He further states that previously he has not used any assistive ambulatory devices nor any adaptive equipment. He has been independent with all aspects of ADLs. 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 Subjective: Patient is pleasant and cooperative. Denies any headache nor chest pain nor back pain. Patient was agreeable for PT to participate in said session as part of physical therapy evaluation and treatment. Objective: General Observation: Patient seen walking with respiratory therapist for this session. Grade 1 edema to bilateral feet with erythema to dorsum of toes on both sides. Mental Status: Alert and oriented x3. Pain: 0/10 ROM: Right Upper Extremity: WFL Left Upper Extremity: WFL Right Lower Extremity: WFL Left Lower Extremity: WFL Strength: Right Upper Extremity: WFL Left Upper Extremity: WFL Right Lower Extremity: All major muscle groups at 4+/5. Ankle plantar flexors and ankle dorsiflexors 5/5. Left Lower Extremity: All major muscle groups at 4+/5. Ankle plantar flexors and ankle dorsiflexors 5/5. Sensation: Intact to BLE as to pain and pressure Bed Mobility/Transfers: [] Gait: Patient was able to complete 50 feet of level surface ambulation x2 with SBA provided full weight bearing on B LE no assistive device needed. Oxygen saturation dipped down to 89% but was able to go back up to above 90% on room air with pursed lip breathing. Balance: Static Sitting: Good Dynamic Sitting: Good Static Standing: Good Dynamic Standing: Fair Special Tests: Mobility Limitations Standardized Measure [facility] 6 clicks Basic Mobility Inpatient Short Form: Raw Score: 22 CMS Score: 21 % deficit 4-Stage Balance Test. Patient was able to independently assume positions 1 and 2 for 10 seconds each but was unable to assume position 3 the tandem stance as well as the one-legged stance without contact-guard assist. Informed Consent/Education: Patient instructed in purpose of PT consult and plan of care. Assessment: Patient is a 68 year old male referred to physical therapy services with the diagnosis of progression of right lower lobe pneumonia and COPD exace rbation. Patient presents with clinical signs and symptoms consistent with current/admitting diagnoses that have resulted to mobility limitations, gait instability, and generalized weakness as demonstrated by the following impairment level findings: 1. Impaired balance 2. Impaired activity tolerance due to respiratory infection Impairments are contributing to the following functional limitations: 1. Increase completion time for mobility ADL performance 2. Increased fall risk 3. Inability to negotiate steps without dyspnea or complaints of fatigue Patient is assessed as a Low 20769 complexity based on the following: History: 68-year-old male with right upper lobe pneumonia and and COPD exacerbation with past medical history of right lung CA status post lobectomy with complaints of recurrent respiratory symptoms and generalized fatigue fatigue for the past month Examination: Underlying impairments and functional deficits with AMPAC score of 22 and an equivalent CMS score of 21% deficit Presentation: Stable Decision Makin low complexity Goals: Goals X1 week 1. Independent gait on level surfaces without assistive device at least 300 feet without report of dyspnea and with SaO2 staying above 90% on room air 2. Independent stairs while holding onto bilateral rails for at least 14 steps without report of dyspnea and with SaO2 staying above 90% on room air 3. Independent with home exercise program 4. Patient will perform tandem stance and one legged stance for 10 seconds on each leg independently and without LOB in order to reduce fall risk. Plan of Care/Treatment Plan: 1-2x/day, 7 days/week x 1 week. Plan of care has been reviewed with the JOGGER OPERATOR providing the service under Physical Therapy direction. Initiate Physical Therapy intervention for strengthening, bed mobility, transfers, gait, stairs, balance training, use of assistive device. DISCHARGE RECOMMENDATIONS: No anticipated equipment needs. May benefit from short-term home health PT services for the [facility]. TREATMENT CODE/TIME: 53316 29 minutes beginning at 11:06 AM. Thank you very much for this referral. Joyce Figueroa, PT, DPT, CLT [facility]
[2018-12-01] MEDS: methylPREDNISolone SUCC 125 MG VIAL 60 MG IVP (19:25)
[2018-12-01] MEDS: Rosuvastatin 10 MG TAB 40 MG PO (19:25)
--- NOTE | 2018-12-01 20:12 | PCNE_ITS ---
Date of service: 12/01/18 Time of Service: 20:12 History of Present Illness Chief Complaint: Goals of Care Narrative: I was asked to see Hayes, a 68-year-old male with severe COPD and history of lung cancer status post lobectomy. He had a month-long illness, was treated with antibiotics outpatient, grew progressively more fatigued and came to the ER. In the ER a CAT scan showed a new lung mass. He was started on antibiotics and steroids and admitted for further care. He initially was a full code. He had his were at odds regarding the goals of treatment and end-of-life decisions. She very much wanted a palliative consult in the hopes of talking more about these issues and deciding next steps. They are both very restoration and belonged to a group of people who are supportive and helpful. They talk about their zoroastrianism group as they are new fami ly. Hayes deflects any discussion by saying he is at peace with what ever happens next. He does not feel like he needs to control this. He was very definite that he did not want CPR. He felt that he would much rather allow natural and go through the process of CPR. His agreed with his decision. She also felt a lot of eggs regarding what would happen should he . She kept saying I will be left to clean up the mess She wants to talk about what he wants. He made jokes about being at peace and did not allow room for further discussion at this time. He was not concerned that he might have a lung mass. Consults Consult date: 12/01/18 Requesting physician: Erna Godoy Assessment and Plan (1) COPD (chronic obstructive pulmonary disease): Current visit: Yes Status: Acute Qualifiers: COPD type: COPD with acute exacerbation Qualified Code(s): J44.1 - Chronic obstructive pulmonary disease with (acute) exacerbation (2) Right upper lobe pneumonia: Current visit: Yes Status: Acute Discussion regarding Code Status with his in the room. He was very clear, he did not want CPR. He wants to be a DNR/DNI. He is ok with transferring to a hospital, antibiotics, Tube feedings, IV fluids. A COLST was completed and the pt received the original. His wanted to continue this conversation as outpatient. She felt that she needed support as she travels this next chapter in his life. Please set him up with an outpatient in Palliative Care. Company came so we ended our conversation. requested a pamphlet about Palliative Care and wants/ needs to meet in the future. I have spent more than 50% of time in counseling with this patient. This document was created by [employer] and may contain grammatical and translation errors. Review of Systems Review of Systems Patient states that he has a hard time breathing, but this is not new. He does not feel depressed. He does not feel worried about the future. Cardiovascular Denies chest pain, Reports dyspnea and Reports dyspnea on exertion Respiratory Reports change in phlegm color, Reports chest congestion, Reports cough, Reports dyspnea, Reports dyspnea on exertion and Reports wheezing Psychiatric Denies anxiety and Denies depression Allergic/Immunologic Reports wheezing PFSH Medical History Abdominal aortic aneurysm (AAA) (Chronic) COPD (chronic obstructive pulmonary disease) (Chronic) Hyperlipidemia (Chronic) Lung cancer, upper lobe (Resolved) Surgical History S/P lobectomy of lung (Resolved) Social History Smoking/Tobacco Use Status: Current every day Alcohol Intake: never Drug use: Never Substance use type: does not use Do you feel safe at home: Yes Do you feel safe in your relationship?: Yes Exam Narrative Exam Narrative: Hayes sat in his chair, closed his eyes often and said I am at peace with what comes next He looks thin and pale, somewhat pasty He is speaking in complete sentences and does not pause to catch his breath. Results Last Vital Signs Temp 97.5 F L 12/01/18 16:20 Pulse 56 L 12/01/18 16:20 Resp 17 12/01/18 16:20 BP 160/85 H 12/01/18 16:20 Pulse Ox 95 12/01/18 16:20 Labs : 12/01/18 06:50 12/01/18 06:50 Laboratory Results - last 24 hr 12/01/18 12/01/18 06:50 06:50 WBC 16.24 H RBC 3.72 L Hgb 11.5 L Hct 34.7 L MCV 93.3 MCH 30.9 MCHC 33.1 RDW 15.0 H Plt Count 238 MPV 9.5 Immature Gran % 0.4 Neutrophils % 92.7 Lymphocytes % 2.2 Monocytes % 4.6 Eosinophils % 0.0 Basophils % 0.1 Absolute Neutrophils 15.05 H Absolute Lymphocytes 0.36 L Absolute Monocytes 0.75 H Absolute Eosinophils 0.00 Absolute Basophils 0.02 Sodium 143 Potassium 3.7 Chloride 108 H Carbon Dioxide 24.2 Anion Gap 10.8 BUN 19 H Creatinine 1.27 Estimated GFR/1.73 m2 56.74 Glucose 124 H Calcium 8.3 L Magnesium 2.2
[2018-12-02] MEDS: Heparin 5,000 UNITS/ML VIAL 5000 UNITS SC (05:57)
[2018-12-02] MEDS: PIPERACILLIN/TAZO 3.375 GM in Normal Saline 50 ML IVPB ×2 (05:57→12:43)
[2018-12-02 07:26] LABS: Anion Gap 9.3 mmol/L (3-11); BUN 17 mg/dL (7-18); CO2 25.7 mmol/L (21.0-32.0); CREATININE 1.26 mg/dL (0.70-1.30); Calcium 8.1 mg/dL (8.5-10.1); Chloride 107 mmol/L (98-107); Estimated GFR 57.26 (mL/min/1.73m2); Glucose 131 mg/dL (70-100); Magnesium 2.2 mg/dL (1.8-2.4); Potassium 3.6 mmol/L (3.5-5.1); Sodium 142 mmol/L (136-145)
[2018-12-02 07:37] VITALS: BP 134/73; PULSE 54; RESP 18; TEMP 36.1; O2SAT 97
[2018-12-02 07:38] LABS: HCT 33.7 % (40.0-50.0); HGB 10.9 g/dL (13.5-17.5); Mean Corp. HGB Concentration 32.3 g/dL (32.0-36.0); Mean Corpuscular Volume 92.8 fL (80-95); Mean Platelet Volume 9.7 fL (8.0-11.0); Monocytes % 4.9; Neutrophils % 91.5; Platelet Count 216 x1000/uL (130-400); RBC 3.63 m/cumm (4.50-6.00); RBC Distribution Width 14.6 % (11.8-14.1); White Blood Cell Count 11.57 k/cumm (4.4-10.8)
[2018-12-02 07:39] LABS: Abs Immature Grans 0.06 k/cumm (0.0-0.09); Absolute Basophil Count 0.01 k/cumm (0.0-0.2); Absolute Lymphocyte Count 0.35 k/cumm (1.2-3.4); Absolute Monocyte Count 0.57 k/cumm (0.11-0.7); Absolute Neutrophil Count 10.59 k/cumm (1.2-6.7); Basophils % 0.1; Immature Grans % 0.5
[2018-12-02] MEDS: Normal Saline Flush 10 ML SYR IVP (08:37)
[2018-12-02] MEDS: Aspirin E.C. 81 MG TABEC PO (08:37)
[2018-12-02] MEDS: methylPREDNISolone SUCC 125 MG VIAL 60 MG IVP (08:37)
--- NOTE | 2018-12-02 09:38 | PT.INTREAT ---
Date of service: 12/02/18 Time of Service: 09:38 PT Notes Inpatient Physical Therapy Treatment Note [facility] Date: 12/02/18 SUBJECTIVE: Hayes wilkinson states he is feeling good today, he is agreeable to participating in PT this morning. OBJECTIVE: PAIN: No complaints of pain. BED MOBILITY/TRANSFERS Sit-stand: I Stand-sit: I GAIT Assistive Device: No AD Weight bearing: Full Assist: I 200' Distance: VITALS: SaO2: 93-94% on RA with stair training STAIRS: Up/down 21x6 using 1 rail and a step-over pattern, independently. ASSESSMENT: Patient tolerated session well without complaint. He was able to perform stair training without difficulty, demonstrating slight SOB, but maintained O2 levels WFL. PLAN: As per primary PT TREATMENT CODE/TIME: 10 minutes; 14404
[2018-12-02 10:05] VITALS: O2SAT 93
[2018-12-02 11:38] VITALS: BP 155/84; PULSE 52; RESP 18; TEMP 36.4; O2SAT 97
[2018-12-02] MEDS: Pantoprazole 40 MG TABCR PO (12:43)
--- NOTE | 2018-12-02 13:43 | PDOC.CMDIS ---
- If Service Date Differs Date of service: 12/02/18 Time of Service: 13:43 LACE Index Scoring Tool - Questions: Length of Stay (in days): 4 - 6 Acuity (Admit via E.D.?): Yes Comorbidities: Chronic Pulmonary Disease, Any Tumor E.D. Visits: 1 - Answers: Total Score: 13 Risk of Readmission: High Risk Care Management Discharge Reason for Hospitalization: Right Pneumonia failed outpatient treatment, COPD Discharge Plan: Hayes will return home today with no services. He will F/U with pulmonology, PCP, and plan of care as prescribed. Hayes's Chelsey will transport home. Patient/Family Education Needs: Review DC instructions, any limitations, and discuss 'Ask Me Three'
--- NOTE | 2018-12-02 14:10 | DSE_ITS ---
Date of service: 12/02/18 Time of Service: 14:02 DS: Diagnosis Discharge Diagnosis (1) COPD (chronic obstructive pulmonary disease): Status: Acute (2) Right upper lobe pneumonia: Status: Acute (3) Bronchiolitis: Status: Acute Discharge Plan Disposition Patient Disposition: HOME Condition: Good Discharge Details Reason For Visit: RIGHT PNEUMONIA FAILED OUTPATIENT TREATMENT, COPD Admit Date/Time: 11/28/18 17:43 Admit Provider: Ryne Jaime Attending Provider: Ryne Jaime Primary Care Provider: Rylan Page Hospital Course Hospital Course: Mr Jennings is a 68 year old male with PMHx of COPD, prior lung cancer s/p lobectomy, who continues to smoke, who was admitted to [facility] on 11/28/18 for a CAP which has failed 3 courses of outpatient therapy. He did have hypoxia on presentation, but this resolved by hospital day 3, including on exertion. He was treated with vancomycin/zosyn with great clinical response, though some of his symptoms are ongoing. He will be discharged home to complete a 10 day course of antibiotics total with augmentin/levofloxacin. We would like to mention that on his CT of the Chest, there was a note of mass- like consolidation in RUL which will need to be followed up as outpatient with pulmonology to ensure this is not malignancy, although, per radiology, this was most likely pneumonia. There was also note of infectious bronchiolitis in RLL. The patient is advised to quit smoking. He is getting discharged home with a nebulizer machine and a steroid taper. He is also asked to follow up with his PCP. Home Meds and New Rx's Prescriptions: New ipratropium-albuterol 0.5 mg-3 mg(2.5 mg base)/3 mL Solution For Nebulization 3 ml UPD Q6H PRN PRN (Reason: shortness of breath or wheezing) Qty: 180 RF: 0 prednisone 20 mg Tablet See Rx Instructions .ROUTE .COMPLEX Qty: 14 RF: 0 amoxicillin-pot clavulanate [Augmentin] 875-125 mg tablet 1 tab PO Q12H Qty: 14 RF: 0 levofloxacin 500 mg tablet 500 mg PO DAILY Qty: 7 RF: 0 pantoprazole 40 mg Tablet,Delayed Release (Dr/Ec) 40 mg PO Q24H Qty: 30 RF: 0 nicotine 21 mg/24 hr Patch 24 Hour 21 mg Transdermal DAILY PRNQty: 30 RF: 0 furosemide [Lasix] 20 mg tablet 20 mg PO DAILY PRN PRN (Reason: edema) Qty: 10 RF: 0 Continued aspirin [Aspir-81] 81 MG tablet,delayed release (DR/EC) 81 mg PO DAILY RF: 0 rosuvastatin [Crestor] 40 MG tablet 40 mg PO QPM RF: 0 Incruse Ellipta 1 PUFF blister with device 1 puff IN PRN PRNRF: 0 acetaminophen [Acetaminophen Extra Strength] 500 mg Tablet 500 mg PO QID RF: 0 ibuprofen 100 mg/5 mL Suspension 400 mg PO Q4H PRNRF: 0 Stiolto Respimat 2.5-2.5 mcg/actuation Mist 2 puff Inhalation DAILY RF: 0 Discharge Instructions Instructions: Bronchiolitis (DC), How to Stop Smoking (DC), Cigarette Smoking and Your Health (GEN), COPD (Chronic Obstructive Pulmonary Disease) (DC), Bacterial Pneumonia (DC) Additional Instructions: Finish your antibiotics and steroids as prescribed. Return to the hospital with any fever, bleeding, chest pain, or worsening shortness of breath. You must stop smoking! Follow up with your PCP and Dr Sandhu. Stand Alone Forms: Nursing Discharge Form Referrals: Ayaka Sandhu MD [ NON-[facility] STAFF PHYSICIAN] - 12/04/18 11:15 am Rylan Page MD [Primary Care Provider] - 12/05/18 3:20 pm Activity:: Activity as Tolerated Equipment/Supplies:: nebulizer machine Diet:: As Tolerated Discharge Orders Discharge Orders: Discharge Order (Routine); Ordered 12/02/18 Ordered By: Erna Godoy Exam Narrative Exam Narrative: General: A&Ox3, NAD HEENT: EOMI, MMM Heart: RRR, no m/r/g Lungs: quiet rhonchi on expiration B GI: abdomen is soft, nontender, nondistended Extremities: 1+ BLE edema, no clubbing/cyanosis DS: Data Vitals/I&O Vitals and I&O: Vital Signs Temperature 36.4 C L 12/02/18 11:38 Temperature Source Tympanic 12/02/18 11:38 Pulse 52 L 12/02/18 11:38 Pulse Rhythm Regular 12/02/18 00:21 Pulse 92 H 11/28/18 18:48 Respiratory Rate 18 12/02/18 11:38 Respiratory Effort 12/02/18 10:08 Respiratory Depth Normal 12/02/18 10:08 Respiratory Pattern Normal 12/02/18 10:08 Blood Pressure 155/84 H 12/02/18 11:38 Blood Pressure Mean 62 11/28/18 18:48 Pulse Oximetry 97 12/02/18 11:38 Oxygen Delivery Method Room Air 12/02/18 11:38 Oxygen Flow Rate 0 12/02/18 11:38 Pain Level 0 12/02/18 11:38 Comment 12/01/18 03:30 Intake & Output 12/01/18 12/02/18 12/02/18 23:59 11:59 23:59 Intake Total 720 / 1360 1000 / 1240 240 / 1240 Balance 720 / 1360 1000 / 1240 240 / 1240 Weight 66.5 kg Intake: IV 600 / 670 100 / 100 Oral 120 / 690 900 / 1140 240 / 1140 Other: Urine Color Yellow Yellow Urine Appearance Clear Clear Urine Odor None Normal Comment voided in toilet Pt voids ind. Voiding Methods Toilet Toilet Completed studies during hospitalization [Text1]: CT chest: 1. No evidence of a pulmonary embolus, thoracic aortic dissection or aneurysm. 2. Status post left upper lobectomy. 3. Area of consolidation involving the medial aspect of the right upper lobe likely reflecting pneumonia. Please correlate clinically. 4. Findings suggestive of infectious bronchiolitis in the right lower lobe. 5. Cholelithiasis. Labs on day of discharge: Labs from last 24 hours 12/02/18 12/02/18 06:30 06:30 WBC 11.57 H RBC 3.63 L Hgb 10.9 L Hct 33.7 L MCV 92.8 MCH 30.0 MCHC 32.3 RDW 14.6 H Plt Count 216 MPV 9.7 Immature Gran % 0.5 Neutrophils % 91.5 Lymphocytes % 3.0 Monocytes % 4.9 Eosinophils % 0.0 Basophils % 0.1 Absolute Neutrophils 10.59 H Absolute Lymphocytes 0.35 L Absolute Monocytes 0.57 Absolute Eosinophils 0.00 Absolute Basophils 0.01 Sodium 142 Potassium 3.6 Chloride 107 Carbon Dioxide 25.7 Anion Gap 9.3 BUN 17 Creatinine 1.26 Estimated GFR/1.73 m2 57.26 Glucose 131 H Calcium 8.1 L Magnesium 2.2 Preliminary micro results at discharge 11/28/18 15:17 Blood Culture - Preliminary Blood NO GROWTH 72 HOURS 11/28/18 14:58 Blood Culture - Preliminary Blood NO GROWTH 72 HOURS PFS Medical History Abdominal aortic aneurysm (AAA) (Chronic) COPD (chronic obstructive pulmonary disease) (Chronic) Hyperlipidemia (Chronic) Lung cancer, upper lobe (Resolved) Surgical History S/P lobectomy of lung (Resolved) Social History Smoking/Tobacco Use Status: Current every day Alcohol Intake: never Drug use: Never Substance use type: does not use Do you feel safe at home: Yes Do you feel safe in your relationship?: Yes
[2018-12-02] MEDS: VANCOMYCIN 1,000 MG in Normal Saline 250 ML 250 MG IVPB (14:11)
--- NOTE | 2018-12-03 18:40 | PT.INDS ---
Date of service: 12/02/18 PT Notes Inpatient Physical Therapy Discharge Summary Dates: 12/02/2018 Dates of Service: 12/01/2018 2 12/02/2018 Referring Doctor: Ailyn Duong NP PT Orders: PT CONSULT: Improve mobility in setting of infection Precautions: Fall. Standard. Patient Profile/Admitting Diagnosis: Patient is a 68-year-old male admitted to this hospital on 11/28/2018 with initial complaints of recurrent respiratory symptoms and generalized fatigue for the past 1 month. He is diagnosed with right lower lobe pneumonia and COPD exacerbation. Referral is received today for functional mobility training, patient education and training in better breathing techniques, and for increasing activity tolerance for mobility ADL performance. PMHX: Medical History Abdominal aortic aneurysm (AAA) (Chronic) COPD (chronic obstructive pulmonary disease) (Chronic) Hyperlipidemia (Chronic) Lung cancer, upper lobe (Resolved) Surgical History S/P lobectomy of lung (Resolved) Social History/Home Situation: Patient lives with in a 2 floor house with 2 steps to enter to get into porch with no rails on either side. He states that he has 14 steps to the second floor with rails on both sides to get to his bedroom. He further states that previously he has not used any assistive ambulatory devices nor any adaptive equipment. He has been independent with all aspects of ADLs. 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 This is a clinical summary of physical therapy services provided on the duration of dates listed abov. No charge was made in the completion of this documentation. Subjective: NT Objective: General Observation: NT Mental Status: Alert and oriented x3. Pain: 0/10 ROM: Right Upper Extremity: WFL Left Upper Extremity: WFL Right Lower Extremity: WFL Left Lower Extremity: WFL Strength: Right Upper Extremity: WFL Left Upper Extremity: WFL Right Lower Extremity: All major muscle groups at 4+/5. Ankle plantar flexors and ankle dorsiflexors 5/5. Left Lower Extremity: All major muscle groups at 4+/5. Ankle plantar flexors and ankle dorsiflexors 5/5. Sensation: Intact to BLE as to pain and pressure Bed Mobility/Transfers: Rolling I Supine to sit I Sit to supine I Sit to stand I Stand to sit I Bed to chair I Chair to bed I Gait: Per PT documentation in the morning of 12/02/2018, patient was able to complete 200 feet of level surface ambulation with I with no assistive device needed. Balance: Static Sitting: Good Dynamic Sitting: Good Static Standing: Good Dynamic Standing: Good Special Tests: Mobility Limitations Standardized Measure [facility] 6 clicks Basic Mobility Inpatient Short Form: Raw Score: 23 CMS Score: 11.20 % deficit 4-Stage Balance Test. Patient was able to independently assume positions 1 and 2 for 10 seconds each but was unable to assume position 3 the tandem stance as well as the one-legged stance without contact-guard assist. Informed Consent/Education: Patient instructed in purpose of PT consult and plan of care. Assessment: Patient is a 68 year old male referred to physical therapy services with the diagnosis of progression of right lower lobe pneumonia and COPD exacerbation. Patient presents with clinical signs and symptoms consistent with current/admitting diagnoses that have resulted to mobility limitations, gait instability, and generalized weakness as demonstrated by the following impairment level findings: 1. Impaired balance 2. Impaired activity tolerance due to respiratory infection Impairments are contributing to the following functional limitations: 1. Increase completion time for mobility ADL performance 2. Increased fall risk 3. Inability to negotiate steps without dyspnea or complaints of fatigue Patient is assessed as a Low [id number] complexity based on the following: History: 68-year-old male with right upper lobe pneumonia and and COPD exacerbation with past medical history of right lung CA status post lobectomy with complaints of recurrent respiratory symptoms and generalized fatigue fatigue for the past month Examination: Underlying impairments and functional deficits with AMPAC score of 22 and an equivalent CMS score of 21% deficit Presentation: Stable Decision Makin low complexity Goals: Goals X1 week 1. Independent gait on level surfaces without assistive device at least 300 feet without report of dyspnea and with SaO2 staying above 90% on room air MET 2. Independent stairs while holding onto bilateral rails for at least 14 steps without report of dyspnea and with SaO2 staying above 90% on room air MET 3. Independent with home exercise program MET 4. Patient will perform tandem stance and one legged stance for 10 seconds on each leg independently and without LOB in order to reduce fall risk. NOT MET DISCHARGE RECOMMENDATIONS: No anticipated equipment needs. May benefit from short-term home health PT services for the Better Breathing Program. TREATMENT CODE/TIME: N/A Thank you very much for this referral. Joyce Figueroa, PT, DPT, CLT [facility]
== END 2018-12-02 15:43 | disposition home or self-care (01) | DRG 194 ==
LOC: ER 17:58 → MS 19:14
PROVIDERS: Nurse Practitioner Family; Admitting Provider Family Medicine; Emergency Provider Student in an Organized Health Care Education/Training Program; PCP Internal Medicine; Visit Provider Internal Medicine
DX: J18.9 Pneumonia, unspecified organism (principal); J44.0 Chronic obstructive pulmonary disease with (acute) lower respiratory infection; J21.9 Acute bronchiolitis, unspecified; J44.1 Chronic obstructive pulmonary disease with (acute) exacerbation; R09.02 Hypoxemia; I95.9 Hypotension, unspecified; R00.0 Tachycardia, unspecified; R53.83 Other fatigue; R94.31 Abnormal electrocardiogram [ECG] [EKG]; F17.210 Nicotine dependence, cigarettes, uncomplicated; Z90.2 Acquired absence of lung [part of]; Z85.118 Personal history of other malignant neoplasm of bronchus and lung; Z51.5 Encounter for palliative care
CPT/HCPCS: 36415; 71275; 80048; 80053; 85027; 87040; 93005; 94618; 94640; 96361; 96365; 96368; 97161; 97530; 99223; 99226; 99233; 99239; 99253; 99285; 80202; 81003; 81015; 83605; 83735; 84443; 84484; 85025; 85610; 85730; 93010; 94664; J1580; J1644; J2543; J2930; J3490; J7620

== ENCOUNTER 2018-12-06 07:15 | Emergency (ER) | payer MEDICARE, SELFPAY ==
[2018-12-06 07:19] VITALS: BP 129/77; PULSE 103; RESP 16; TEMP 36.8; O2SAT 98
[2018-12-06 08:21] VITALS: PULSE 97; RESP 18; RESP 5; RESP 7; O2SAT 97
[2018-12-06] MEDS: Albuterol/Ipratropium 3 ML UPD VIAL (08:21)
--- NOTE | 2018-12-06 13:40 | W.ED.GENAD ---
Discharge Plan Disposition Patient Disposition: HOME Condition: Stable Discharge Details Chief Complaint: RespSymp Clinical Impression: Dyspnea Primary Care Provider: Rylan Page ED Provider: Figueroa Vale Home Meds and New Rx's Prescriptions: New furosemide 20 mg tablet 20 mg PO BID Qty: 6 RF: 0 No Action aspirin [Aspir-81] 81 MG tablet,delayed release (DR/EC) 81 mg PO DAILY RF: 0 rosuvastatin [Crestor] 40 MG tablet 40 mg PO QPM RF: 0 Incruse Ellipta 1 PUFF blister with device 1 puff IN PRN PRNRF: 0 acetaminophen [Acetaminophen Extra Strength] 500 mg Tablet 500 mg PO QID RF: 0 ibuprofen 100 mg/5 mL Suspension 400 mg PO Q4H PRNRF: 0 Stiolto Respimat 2.5-2.5 mcg/actuation Mist 2 puff Inhalation DAILY RF: 0 ipratropium-albuterol 0.5 mg-3 mg(2.5 mg base)/3 mL Solution For Nebulization 3 ml UPD Q6H PRN PRN (Reason: shortness of breath or wheezing) Qty: 180 RF: 0 prednisone 20 mg Tablet See Rx Instructions .ROUTE .COMPLEX Qty: 14 RF: 0 amoxicillin-pot clavulanate [Augmentin] 875-125 mg tablet 1 tab PO Q12H Qty: 14 RF: 0 levofloxacin 500 mg tablet 500 mg PO DAILY Qty: 7 RF: 0 pantoprazole 40 mg Tablet,Delayed Release (Dr/Ec) 40 mg PO Q24H Qty: 30 RF: 0 furosemide [Lasix] 20 mg tablet 20 mg PO DAILY PRN PRN (Reason: edema) Qty: 10 RF: 0 Discharge Instructions Instructions: Dyspnea (ED) Additional Instructions: 1. Drink plenty of fluids. 2. Continue all medications as prescribed. 3. Acetaminophen 1000mg every 4 hours (up to 5 time a day) and/or ibuprofen 600mg every 6 hours as needed for fever or pain. 4. Increase furosemide to 20 mg twice a day for 3 days. Return to the Emergency Department (ED) if your condition worsens, does not improve as expected, or for ANY other concerns. Specifically, return if you have new or uncontrolled pain, worsening fever, difficulty breathing, vomiting, or are unable to drink fluids. Discharge Data Discharge Date/Time-TO BE ENTERED AT DEPARTURE: 12/06/18 09:54 Medical Decision Making 68-year-old with history of end-stage COPD and lung cancer who was recently discharged after admission for pneumonia. Presents with subjective mild worsening of his baseline respiratory function and for increased lower extremity edema bilaterally. In no distress on arrival with a nonfocal exam except for a prolonged expiratory phase on auscultation with also bilateral lower extremity edema. Bedside ultrasound negative for interstitial syndrome or pleural effusions. Clinically improved after receiving an albuterol nebulizer. Discharged with plan for increase furosemide over the next few days with outpatient PCP follow-up early next week. Pt evaluated immediately prior to discharge with improved symptoms, normal vital signs, and tolerating PO. The patient feels appropriate for discharge home. Discussed clinical/diagnostic findings. Discharged with a clear plan for outpatient follow up. Given usual and customary return instructions prior to discharge. Medical Records Medical records reviewed: Yes I reviewed the patient's medical records. Imaging Data Radiologic Study: Attestation: I personally reviewed and interpreted this imaging study as follows: Imaging: Ultrasound (Bedside thoracic) My impression: Limited thoracic bedside Ultrasound. Findings include no focal consolidation, interstitial syndrome, or pleural effusion bilateral posteriorly. Images obtained, reviewed, and interpreted independently by myself. Images saved on ultrasound system for review. HPI 65-year-old gent with a past medical history which includes lung CA, COPD, hyperlipidemia, AAA, and a recent pneumonia. He also has a history of lower extremity edema treated with furosemide. Recently discharged from [facility] after admission for dyspnea/pneumonia. He describes feeling clinical improved at time of discharge 4 days ago and now concerned that his respiratory symptoms are slowly worsening and refractory to outpatient medications. Of note, he has mild worsening of his lower extremity edema since discharge. Denies fever/chills, productive cough, chest pain, palpitations, abdominal pain, change in bowel habits, melena/hematochezia, or urinary symptoms. He has been compliant with his medications. General Date/Time Provider Initiated Documentation: 12/06/18 08:06. Related Data Home Medications Medication Instructions Recorded Confirmed aspirin [Aspir-81] 81 mg PO DAILY 04/25/14 12/06/18 rosuvastatin [Crestor] 40 mg PO QPM 04/25/14 12/06/18 Incruse Ellipta 1 puff IN PRN PRN 08/21/17 12/06/18 Stiolto Respimat 2 puff INHALATION DAILY 07/03/18 12/06/18 acetaminophen [Acetaminophen Extra 500 mg PO QID 07/03/18 12/06/18 Strength] ibuprofen 400 mg PO Q4H PRN 07/03/18 12/06/18 amoxicillin-pot clavulanate 1 tab PO Q12H #14 tab 12/02/18 12/06/18 [Augmentin] furosemide [Lasix] 20 mg PO DAILY PRN PRN #10 tab 12/02/18 12/06/18 ipratropium-albuterol 3 ml UPD Q6H PRN PRN #180 ml 12/02/18 12/06/18 levofloxacin 500 mg PO DAILY #7 tab 12/02/18 12/06/18 pantoprazole 40 mg PO Q24H #30 tab 12/02/18 12/06/18 prednisone See Rx Instructions .ROUTE 12/02/18 .COMPLEX #14 tab furosemide 20 mg PO BID #6 tab 12/06/18 Previous Rx's Medication Instructions Recorded amoxicillin-pot clavulanate 1 tab PO Q12H #14 tab 12/02/18 [Augmentin] furosemide [Lasix] 20 mg PO DAILY PRN PRN #10 tab 12/02/18 ipratropium-albuterol 3 ml UPD Q6H PRN PRN #180 ml 12/02/18 levofloxacin 500 mg PO DAILY #7 tab 12/02/18 pantoprazole 40 mg PO Q24H #30 tab 12/02/18 prednisone See Rx Instructions .ROUTE 12/02/18 .COMPLEX #14 tab furosemide 20 mg PO BID #6 tab 12/06/18 Allergies Allergy/AdvReac Type Severity Reaction Status Date / Time No Known Allergies Allergy Unverified 12/06/18 07:23 General Stated Complaint: RespSymp BRYAN: 3 Review of Systems Review of Systems All systems are reviewed and are unremarkable except as noted in HPI and below: CONSTITUTIONAL: no fevers/chills, no weakness or change in appetite EYES: no change in vision HEENT: no throat pain or difficulty swallowing; no neck pain CARDIOVASCULAR: no chest pain, palpitations, or diaphoresis; mild worsening lower extremity edema.; RESPIRATORY: no cough, wheezing; GASTROINTESTINAL: no abdominal pain, melena, nausea/emesis GENITOURINARY: no dysuria, flank pain, MUSCULOSKELETAL: no pack pain, myalgias, arthralgias INTEGUMENTARY: no rash, no wounds NEUROLOGIC: no headache, focal weakness, difficulty with speech, numbness PSYCHIATRIC: no confusion, no anxiety HEME: no easy bruising or bleeding ALLERGIC: no urticaria Mild worsening dyspnea [facility] Medical History Abdominal aortic aneurysm (AAA) (Chronic) COPD (chronic obstructive pulmonary disease) (Chronic) Hyperlipidemia (Chronic) Lung cancer, upper lobe (Resolved) Surgical History S/P lobectomy of lung (Resolved) Social History Smoking/Tobacco Use Status: Former Tobacco Use Quit Date: 11/29/18 Alcohol Intake: never Drug use: Never Substance use type: does not use Do you feel safe at home: Yes Do you feel safe in your relationship?: Yes Exam Narrative Exam Narrative: Nursing note and vital signs have been reviewed and noted. GENERAL: alert, active, no acute distress, well -hydrated, well-nourished HEENT: atraumatic/normocephalic, PERRLA, EOMI, conjunctiva clear, external ears/canals normal, nasal mucosa normal NECK: supple, full range of motion, no mass, normal lymphadenopathy, no thyromegaly CARDIOVASCULAR: RRR, no murmurs, nl pulses, 2+ bilateral pitting edema PULMONARY: nl effort, no audible wheezing or stridor, prolonged expiratory phase no focal deficit. no chest wall tenderness ABDOMEN: soft, non-tender, non-distended, no mass, no organomegaly EXTREMITY: normal muscle tone, all joints with FROM, no deformity or tenderness SKIN: no exanthem appreciated NEURO: gross motor exam normal, normal stance and gait PSYCH: alert and oriented, Course Vital Signs Temperature 98.2 F 12/06/18 07:19 Pulse 103 H 12/06/18 07:19 Respiratory Rate 16 12/06/18 07:19 Blood Pressure 129/77 12/06/18 07:19 Pulse Oximetry 98 12/06/18 07:19 Temperature 98.2 F 12/06/18 07:19 Temperature Source Temporal Artery Scan 12/06/18 07:19 Pulse 97 H 12/06/18 08:21 Respiratory Rate 18 12/06/18 08:21 Respiratory Effort Non-Labored 12/06/18 07:22 Respiratory Depth Normal 12/06/18 07:21 Blood Pressure 129/77 12/06/18 07:19 Blood Pressure Position Sitting 12/06/18 07:19 Pulse Oximetry 97 12/06/18 08:21 Oxygen Delivery Method Room Air 12/06/18 08:21 Oxygen Flow Rate 0 12/06/18 08:21 Pain Level 0 12/06/18 07:19
== END 2018-12-06 09:54 | disposition home or self-care (01) ==
PROVIDERS: Emergency Provider Emergency Medicine; PCP Internal Medicine
DX: R06.00 Dyspnea, unspecified (principal); J44.9 Chronic obstructive pulmonary disease, unspecified; Z85.118 Personal history of other malignant neoplasm of bronchus and lung; Z87.891 Personal history of nicotine dependence
CPT/HCPCS: 94640; 99283; J7620

== ENCOUNTER → 2019-01-27 01:09 | Outpatient (CLI) | payer MEDICARE, SELFPAY ==
--- NOTE | 2019-01-27 15:00 | DI.CT_ITS ---
SYMPTOMS/DIAGNOSIS: CHRONIC OBSTRUCTIVE LUNG DISEASE, J44.9, F/U NEW RIGHT UPPER LOBE AND RIGHT MIDDLE LOBE INFILTRATES, SHORTNESS OF BREATH CHEST CT: CT examination of the chest was performed without contrast administration. Images obtained through the upper abdomen show cholelithiasis. Unremarkable appearance of visualized portions of the liver, spleen, adrenals and kidneys except for renal vascular calcifications. Visualized portions of the pancreas appear intact. Prior left upper lobectomy noted. Bilateral apical subpleural emphysema and scarring noted. Reticulonodular radiodensities in right middle lobe and right upper lobe unchanged from previous examination. No new intrapulmonary mass or consolidation. No pleural effusion. No gross new mediastinal adenopathy. CONCLUSION: Stable appearance of the chest in a patient with a prior history of left upper lobe lung carcinoma.
== END ==
PROVIDERS: PCP Internal Medicine; Visit Provider Internal Medicine
DX: J44.9 Chronic obstructive pulmonary disease, unspecified (principal); R06.02 Shortness of breath; R91.8 Other nonspecific abnormal finding of lung field; Z85.118 Personal history of other malignant neoplasm of bronchus and lung; K80.20 Calculus of gallbladder without cholecystitis without obstruction
CPT/HCPCS: 71250

== ENCOUNTER 2019-06-15 12:50 | Emergency (ER) | payer MEDICARE, SELFPAY ==
[2019-06-15] VITALS (8 sets, daily range): BP systolic 120–132; BP diastolic 56–73; PULSE 75–84; RESP 4–18; TEMP 37; O2SAT 96–97
--- NOTE | 2019-06-15 13:13 | DI.RAD_ITS ---
EXAM: XR CHEST 2V PA LATERAL INDICATION: cough, shortness of breath. COMPARISON: CHEST 2 VIEWS PA,LAT from 08/21/2017 TECHNIQUE: 2D digital imaging was performed. FINDINGS: The patient is status post left upper lobectomy. There is no pleural effusion. The heart is not enl arged. Elevation left hemidiaphragm is unchanged when compared with prior images. IMPRESSION: No evidence of acute cardiopulmonary disease.
--- NOTE | 2019-06-15 13:13 | ED.GENADUL_ITS ---
Discharge Plan Disposition Patient Disposition: HOME Condition: Stable Discharge Details Chief Complaint: GenMedical Clinical Impression: Chronic obstructive pulmonary disease with (acute) exacerbation Primary Care Provider: Rylan Page ED Provider: Maxime Ocampo Home Meds and New Rx's Prescriptions: New levofloxacin 750 mg tablet 750 mg PO DAILY Qty: 5 RF: 0 prednisone 20 mg tablet 20 mg PO DAILY Qty: 15 RF: 0 Continued aspirin [Aspir-81] 81 MG tablet,delayed release (DR/EC) 81 mg PO DAILY RF: 0 rosuvastatin [Crestor] 40 MG tablet 40 mg PO QPM RF: 0 Incruse Ellipta 1 PUFF blister with device 1 puff IN PRN PRNRF: 0 furosemide 20 mg tablet 20 mg PO BID Qty: 6 RF: 0 acetaminophen [Acetaminophen Extra Strength] 500 mg Tablet 500 mg PO QID RF: 0 ibuprofen 100 mg/5 mL Suspension 400 mg PO Q4H PRNRF: 0 Stiolto Respimat 2.5-2.5 mcg/actuation Mist 2 puff Inhalation DAILY RF: 0 ipratropium-albuterol 0.5 mg-3 mg(2.5 mg base)/3 mL Solution For Nebulization 3 ml UPD Q6H PRN PRN (Reason: shortness of breath or wheezing) Qty: 180 RF: 0 prednisone 20 mg Tablet See Rx Instructions .ROUTE .COMPLEX Qty: 14 RF: 0 amoxicillin-pot clavulanate [Augmentin] 875-125 mg tablet 1 tab PO Q12H Qty: 14 RF: 0 levofloxacin 500 mg tablet 500 mg PO DAILY Qty: 7 RF: 0 pantoprazole 40 mg Tablet,Delayed Release (Dr/Ec) 40 mg PO Q24H Qty: 30 RF: 0 furosemide [Lasix] 20 mg tablet 20 mg PO DAILY PRN PRN (Reason: edema) Qty: 10 RF: 0 Discharge Instructions Instructions: COPD (Chronic Obstructive Pulmonary Disease) (ED) Additional Instructions: follow up with your primary care provider within 1 week if you feel more shortness of breath, feel more ill or have severe pain return to the emergency department Medical Decision Making 69 yo male with hx of copd, lung cancer, who comes in with chief complaint of productive cough, runny nose and shortness of breath. Denies any chest shanda or pressure. He denies any recent travel or surgeries. He is speaking in full sentences with diffuse wheezing in all lung duenas. No leg swelling or jvd. Suspect he is having a copd exacerbation and will tx with nebs and steroids and obtain cxr to eval for pna. His symptoms seem infectious in nature and he has no hypoxia or tahycardia or evidence of dvt and no chest pain/pressure so do ubt entities such as acs or PE pt remains stable, and feels much better. Labs unremarkable and xray on my read shows no acute findings. I suspect he is having copd exacerbation vs early CAP. I did offer to admit him but he states he feels well and wants to go home, and given reassuring exam with only minimal apical wheezing bilaterally and reassuring labs feel this is reasonable. Advised he f/u within a week with pcp and return precautions given Differential Diagnosis Differential Diagnosis: copd, pna, influenza Medical Records Medical records reviewed: Yes I reviewed the patient's medical records. Imaging Data Radiologic Study: Attestation: I personally reviewed and interpreted this imaging study as follows: Imaging: X-Ray My impression: no acute findings Lab Data Lab results reviewed: Yes I reviewed the patient's lab results. ECG Data Attestation: I personally reviewed and interpreted this ECG (s) as follows: Prior ECG tracings: not available for review Interpretation: sinus rhythm, rate of 85, pr 192 HPI General Mode of arrival: ambulatory . Date/Time Provider Initiated Documentation: 06/15/19 13:00 . Limitations to Documentation: no limitations . Information obtained by: patient . History of Present Illness 69 year old M presents to the emergency department with the chief complaint of cough, described as moderate, No relieving factors improve symptom(s), No exacerbating factors reported . Related Data Home Medications Medication Instructions Recorded Confirmed aspirin [Aspir-81] 81 mg PO DAILY 04/25/14 12/31/18 rosuvastatin [Crestor] 40 mg PO QPM 04/25/14 12/31/18 Incruse Ellipta 1 puff IN PRN PRN 08/21/17 12/31/18 Stiolto Respimat 2 puff INHALATION DAILY 07/03/18 12/31/18 acetaminophen [Acetaminophen Extra 500 mg PO QID 07/03/18 12/31/18 Strength] ibuprofen 400 mg PO Q4H PRN 07/03/18 12/31/18 amoxicillin-pot clavulanate 1 tab PO Q12H #14 tab 12/02/18 12/31/18 [Augmentin] furosemide [Lasix] 20 mg PO DAILY PRN PRN #10 tab 12/02/18 12/31/18 ipratropium-albuterol 3 ml UPD Q6H PRN PRN #180 ml 12/02/18 12/31/18 levofloxacin 500 mg PO DAILY #7 tab 12/02/18 12/31/18 pantoprazole 40 mg PO Q24H #30 tab 12/02/18 12/31/18 prednisone See Rx Instructions .ROUTE 12/02/18 12/31/18 .COMPLEX #14 tab furosemide 20 mg PO BID #6 tab 12/06/18 12/31/18 levofloxacin 750 mg PO DAILY #5 tab 06/15/19 prednisone 20 mg PO DAILY #15 tab 06/15/19 Previous Rx's Medication Instructions Recorded amoxicillin-pot clavulanate 1 tab PO Q12H #14 tab 12/02/18 [Augmentin] furosemide [Lasix] 20 mg PO DAILY PRN PRN #10 tab 12/02/18 ipratropium-albuterol 3 ml UPD Q6H PRN PRN #180 ml 12/02/18 levofloxacin 500 mg PO DAILY #7 tab 12/02/18 pantoprazole 40 mg PO Q24H #30 tab 12/02/18 prednisone See Rx Instructions .ROUTE 12/02/18 .COMPLEX #14 tab furosemide 20 mg PO BID #6 tab 12/06/18 levofloxacin 750 mg PO DAILY #5 tab 06/15/19 prednisone 20 mg PO DAILY #15 tab 06/15/19 Allergies Allergy/AdvReac Type Severity Reaction Status Date / Time No Known Allergies Allergy Unverified 12/06/18 07:23 General Stated Complaint: GenMedical BRYAN: 3 Review of Systems Review of Systems ROS Unobtainable: All systems reviewed & are unremarkable except as noted in HPI and below Constitutional Constitutional: Denies chills, Denies fever(s) and Denies weakness Cardiovascular Cardiovascular: Denies chest pain and Denies dyspnea Respiratory Respiratory: Denies cough and Denies dyspnea Gastrointestinal Gastrointestinal: Denies abdominal pain, Denies nausea and Denies vomiting Neurologic Neurologic: Denies weakness [facility] Social History Smoking/Tobacco Use Status: Current-Occasional Tobacco Type: cigarettes Alcohol Intake: never Drug use: Never Substance use type: does not use Do you feel safe at home: Yes Do you feel safe in your relationship?: Yes Exam Const General: no acute distress Orientation: alert HENMT Head: normal to inspection Ears: external ears normal General nose exam: external nose normal Mouth: moist mucous membranes Eyes General: appearance normal, both eyes and all related structures Neck Neck: normal visual inspection Resp Effort & Inspection: audible wheezes Cardio Rate: regular rate Skin General skin exam: no rashes or lesions noted Neuro General: alert and oriented x3 Extrem General: normal to inspection Psych Mental Status: mental status grossly normal Course Vital Signs Vital signs: Vital Signs Temperature 37 C 06/15/19 12:56 Pulse 84 06/15/19 12:56 Respiratory Rate 18 06/15/19 12:56 Blood Pressure 132/73 06/15/19 12:56 Pulse Oximetry 97 06/15/19 12:56 Temperature 37 C 06/15/19 12:56 Temperature Source Skin 06/15/19 12:56 Pulse 84 06/15/19 12:56 Respiratory Rate 18 06/15/19 12:56 Blood Pressure 132/73 06/15/19 12:56 Blood Pressure Position Sitting 06/15/19 12:56 Pulse Oximetry 97 06/15/19 12:56 Oxygen Delivery Method Room Air 06/15/19 12:56 Oxygen Flow Rate 0 06/15/19 12:56 Pain Level 0 06/15/19 12:56
[2019-06-15 13:20] LABS: Bilirubin Negative (Negative); Blood Small (Negative); Clarity Clear (Clear); Glucose Negative (Negative); Ketones Negative (Negative); Leukocyte Esterase Negative (Negative); Nitrite Negative (Negative); Specific Gravity 1.015 (1.005-1.025)
[2019-06-15 13:25] LABS: Abs Immature Grans 0.01 k/cumm (0.0-0.09); Absolute Basophil Count 0.05 k/cumm (0.0-0.2); Absolute Eosinophil Count 0.35 k/cumm (0.0-0.7); Absolute Lymphocyte Count 1.44 k/cumm (1.2-3.4); Absolute Monocyte Count 0.93 k/cumm (0.11-0.7); Absolute Neutrophil Count 6.11 k/cumm (1.2-6.7); Basophils % 0.6; Eosinophils % 3.9; HCT 44.4 % (40.0-50.0); Immature Grans % 0.1; Lymphocytes % 16.2; Mean Corp. HGB Concentration 33.8 g/dL (32.0-36.0); Mean Corpuscular Hemoglobin 31.7 pg (27.0-33.0); Mean Corpuscular Volume 93.9 fL (80-95); Monocytes % 10.5; Neutrophils % 68.7; Platelet Count 153 x1000/uL (130-400); RBC 4.73 m/cumm (4.50-6.00); RBC Distribution Width 13.9 % (11.8-14.1); White Blood Cell Count 8.89 k/cumm (4.4-10.8)
[2019-06-15 13:29] LABS: Bacteria Few HPF (Negative); Casts 3-5 Coarse Granular LPF (Negative); Crystals Negative HPF (Negative); Epithelial Cells Few HPF (Negative); Mucus Trace (Negative); Other Cells Few Renal (Negative); RBC 0-2 (0-2); WBC 0-2 HPF (0-5)
[2019-06-15 13:30] LABS: C & S Indicated? No
[2019-06-15] MEDS: Albuterol/Ipratropium 3 ML UPD VIAL UPD (13:30)
[2019-06-15] MEDS: methylPREDNISolone SUCC 125 MG VIAL IVP (13:30)
[2019-06-15] MEDS: Normal Saline 1,000 ML 1000 ML IV (13:38)
[2019-06-15 13:41] LABS: ALT 14 U/L (16-63); AST 11 U/L (15-37); Albumin 4.1 g/dL (3.4-5.0); Alkaline Phosphatase 117 U/L (46-116); Anion Gap 8.7 mmol/L (3-11); BUN 13 mg/dL (7-18); Bilirubin, Total 0.5 mg/dL (0.2-1.0); CO2 29.3 mmol/L (21.0-32.0); CREATININE 1.43 mg/dL (0.70-1.30); Calcium 9.1 mg/dL (8.5-10.1); Chloride 104 mmol/L (98-107); Estimated GFR 49.33 (mL/min/1.73m2); Glucose 94 mg/dL (70-100); Potassium 3.7 mmol/L (3.5-5.1); Sodium 142 mmol/L (136-145); Total Protein 7.1 g/dL (6.4-8.2)
[2019-06-15 13:44] LABS: Troponin I < 0.05 ng/mL (0.00-0.06)
[2019-06-15] MEDS: levoFLOXacin 500 MG, levoFLOXacin 250 MG 750 MG PO (13:56)
[2019-06-15 14:07] LABS: Prothrombin Time 10.4 sec (9.3-11.0)
--- NOTE | 2019-06-16 08:04 | NUR.NOTE ---
Referral faxed to PCP [facility], Dr. Page.Nursing Note:
== END 2019-06-15 14:10 | disposition home or self-care (01) ==
PROVIDERS: Emergency Provider Emergency Medicine; PCP Internal Medicine
DX: J44.1 Chronic obstructive pulmonary disease with (acute) exacerbation (principal); C34.90 Malignant neoplasm of unspecified part of unspecified bronchus or lung; F17.210 Nicotine dependence, cigarettes, uncomplicated
CPT/HCPCS: 36415; 80053; 93005; 94640; 96374; 99285; 71046; 81003; 81015; 84484; 85025; 85610; 85730; 93010; J2930; J7620

== ENCOUNTER 2019-06-24 23:26 | Observation (INO) | payer MEDICARE, SELFPAY ==
--- NOTE | 2019-06-24 00:15 | DI.RAD_ITS ---
EXAM: XR CHEST 2V PA LATERAL INDICATION: right lateral chest pain. COMPARISON: No exams were available for comparison TECHNIQUE: 2D digital imaging was performed. FINDINGS: Again noted is left upper lobectomy. There is left-sided volume loss. The heart size remains jean-pierre l. Mild fibrotic changes are seen in the right upper lobe. The right lung is otherwise clear. No s uperimposed infiltrate or effusion is seen. IMPRESSION: Stable left upper lobectomy changes. No acute abnormality is seen.
[2019-06-24 23:29] VITALS: BP 133/76; PULSE 91; RESP 19; TEMP 36.6; O2SAT 97
[2019-06-24 23:37] VITALS: RESP 20
--- NOTE | 2019-06-24 23:45 | NUR.NOTE ---
Reports constant, sharp right sided chest pain radiating down right side x approx 30 min. Pt reports feeling well prior to going to bed tonight, this pain woke him from sleep. reports associated SOB. Productive cough, white phlegm. Denies fevers. Treated recently with steroids and abx for ? virus. SR on monitor. LS insp/exp wheezes. #20 RAC, labs drawn.
[2019-06-25] VITALS (14 sets, daily range): BP systolic 113–138; BP diastolic 66–79; PULSE 63–91; RESP 18–20; TEMP 36–36.7; O2SAT 94–98
[2019-06-25] MEDS: Normal Saline 1,000 ML 125 ML IV ×3 (00:02→16:53)
[2019-06-25] MEDS: Ketorolac 15 MG/ML VIAL IVP (00:02)
[2019-06-25 00:03] LABS: Abs Immature Grans 0.05 k/cumm (0.0-0.09); Absolute Basophil Count 0.01 k/cumm (0.0-0.2); Absolute Eosinophil Count 0.07 k/cumm (0.0-0.7); Absolute Lymphocyte Count 1.41 k/cumm (1.2-3.4); Absolute Monocyte Count 1.59 k/cumm (0.11-0.7); Absolute Neutrophil Count 11.75 k/cumm (1.2-6.7); Basophils % 0.1; Eosinophils % 0.5; HCT 42.1 % (40.0-50.0); HGB 14.5 g/dL (13.5-17.5); Immature Grans % 0.3; Lymphocytes % 9.5; Mean Corp. HGB Concentration 34.4 g/dL (32.0-36.0); Mean Corpuscular Hemoglobin 31.9 pg (27.0-33.0); Mean Corpuscular Volume 92.5 fL (80-95); Monocytes % 10.7; Neutrophils % 78.9; Platelet Count 169 x1000/uL (130-400); RBC 4.55 m/cumm (4.50-6.00); RBC Distribution Width 14.3 % (11.8-14.1); White Blood Cell Count 14.89 k/cumm (4.4-10.8)
[2019-06-25 00:15] LABS: Diff Comment Agrees w/ Instrument
[2019-06-25 00:16] LABS: RBC Morphology Normal
[2019-06-25 00:22] LABS: ALT 36 U/L (16-63); AST 14 U/L (15-37); Albumin 3.5 g/dL (3.4-5.0); Alkaline Phosphatase 96 U/L (46-116); Anion Gap 9.3 mmol/L (3-11); BUN 21 mg/dL (7-18); Bilirubin, Total 0.3 mg/dL (0.2-1.0); CO2 26.7 mmol/L (21.0-32.0); CREATININE 2.01 mg/dL (0.70-1.30); Calcium 8.7 mg/dL (8.5-10.1); Chloride 105 mmol/L (98-107); Glucose 138 mg/dL (70-100); Magnesium 2.2 mg/dL (1.8-2.4); Potassium 3.5 mmol/L (3.5-5.1); Sodium 141 mmol/L (136-145); Total Protein 6.6 g/dL (6.4-8.2); Troponin I < 0.05 ng/mL (0.00-0.06)
[2019-06-25 00:32] LABS: D-Dimer 3778 ng/mlFEU (<500)
--- NOTE | 2019-06-25 00:37 | DI.VRAD_ITS ---
PROCEDURE INFORMATION: Exam: XR Chest, 2 Views Exam date and time: 06/24/2019 11:54 PM Clinical history: 69 years old, male; Right-sided chest pain TECHNIQUE: Imaging protocol: XR of the chest Views: 2 views. COMPARISON: CR XR CHEST 2V PA LATERAL 06/15/2019 1:25 PM FINDINGS: Lungs: Left lung as volume loss in chronic scarring. Small amount of scarring in the right apex, unchanged. Pleural space: Unremarkable. No evidence of pneumothorax. Heart/Mediastinum: Unremarkable. Heart size within normal limits for technique. Bones/joints: Old left rib fracture deformities. IMPRESSION: No acute findings. Dictated and Authenticated by: Rylan Javed MD. Ordering:GATO Jackson MD
--- NOTE | 2019-06-25 00:40 | ED.GENADUL_ITS ---
Discharge Plan Disposition Patient Disposition: [facility] Condition: Good Discharge Details Chief Complaint: Chest Pain Clinical Impression: Right-sided chest pain, COPD (chronic obstructive pulmonary disease), CAREN (acute kidney injury) Primary Care Provider: Rylan Page ED Provider: Manuel Mora Fletcher Meds and New Rx's Prescriptions: No Action aspirin [Aspir-81] 81 MG tablet,delayed release (DR/EC) 81 mg PO DAILY RF: 0 rosuvastatin [Crestor] 40 MG tablet 40 mg PO QPM RF: 0 Incruse Ellipta 1 PUFF blister with device 1 puff IN PRN PRNRF: 0 prednisone 20 mg tablet 20 mg PO DAILY Qty: 15 RF: 0 acetaminophen [Acetaminophen Extra Strength] 500 mg Tablet 500 mg PO QID RF: 0 Stiolto Respimat 2.5-2.5 mcg/actuation Mist 2 puff Inhalation DAILY RF: 0 ipratropium-albuterol 0.5 mg-3 mg(2.5 mg base)/3 mL Solution For Nebulization 3 ml UPD Q6H PRN PRN (Reason: shortness of breath or wheezing) Qty: 180 RF: 0 pantoprazole 40 mg Tablet,Delayed Release (Dr/Ec) 40 mg PO Q24H Qty: 30 RF: 0 furosemide [Lasix] 20 mg tablet 20 mg PO DAILY PRN PRN (Reason: edema) Qty: 10 RF: 0 Medical Decision Making 69-year-old male with significant history of COPD, remote history of lung cancer status post resection presenting with right lateral chest pain slightly pleuritic in nature. Recently treated with Levaquin. Still on prednisone. Vital signs and pulse oximetry are normal. Minimal if any chest wall tenderness on the right. No rash. Lungs with some scattered wheezes but nothing focal. Consider pneumonia, PE, unlikely pneumothorax as breath sounds present. Also unlikely to be cardiac given the location of the pain. EKG is unchanged from previous. Revised Stark score puts him at moderate risk. D-dimer ordered along with CBC, chemistry, troponin. Chest x-ray ordered. Toradol given for the pain. Patient's laboratory studies significant for a white count of 14.9. May be related to steroids. Hemoglobin and platelets are normal. Chemistries significant for increase in renal function with creatinine at 2. Baseline is 1.1-1.2. Troponin is negative. Age-adjusted d-dimer is positive. Chest x-ray preliminary read by radiology as negative. Unable to rule out PE with d-dimer. Unable to obtain CTA because of creatinine. Also cannot explain the mild CAREN. Will discuss with hospitalist for observation admission for V/Q study and lower extremity ultrasounds in the morning. Discussed with hospitalist, Dr. Muro. Will start heparin and admit for further evaluation for possible PE. Patient aware of plan and agreeable to admission. Medical Records Medical records reviewed: Yes I reviewed the patient's medical records. Lab Data Lab results reviewed: Yes I reviewed the patient's lab results. ECG Data Attestation: I personally reviewed and interpreted this ECG (s) as follows: Prior ECG tracings: available for review Interpretation: Sinus rhythm at rate of 88. Couple of PVCs. Right bundle branch block with right axis which is unchanged. No acute ST changes. HPI General Mode of arrival: ambulatory . Date/Time Provider Initiated Documentation: 06/24/19 23:40 . Limitations to Documentation: no limitations . Information obtained by: patient, RN notes reviewed and old records reviewed . HPI Narrative: Patient presents to ED with complaint of sudden onset right side sharp chest pain that woke him from sleep. It is right lateral chest. It is a little pleuritic in nature. It is not worse with movement. He was recently treated with Levaquin for COPD exacerbation and is still on prednisone. He does not feel like his breathing is any better or worse than it was last week when he was seen here. He denies any leg pain or leg swelling. He has remote history of lung cancer with surgical resection. Does not have known active cancer. He does still smoke. There is no rash. There is no trauma. Related Data Home Medications Medication Instructions Recorded Confirmed aspirin [Aspir-81] 81 mg PO DAILY 04/25/14 06/24/19 rosuvastatin [Crestor] 40 mg PO QPM 04/25/14 06/24/19 Incruse Ellipta 1 puff IN PRN PRN 08/21/17 06/24/19 Stiolto Respimat 2 puff INHALATION DAILY 07/03/18 06/24/19 acetaminophen [Acetaminophen Extra 500 mg PO QID 07/03/18 06/24/19 Strength] furosemide [Lasix] 20 mg PO DAILY PRN PRN #10 tab 12/02/18 06/24/19 ipratropium-albuterol 3 ml UPD Q6H PRN PRN #180 ml 12/02/18 06/24/19 pantoprazole 40 mg PO Q24H #30 tab 12/02/18 06/24/19 prednisone 20 mg PO DAILY #15 tab 06/15/19 06/24/19 Previous Rx's Medication Instructions Recorded furosemide [Lasix] 20 mg PO DAILY PRN PRN #10 tab 12/02/18 ipratropium-albuterol 3 ml UPD Q6H PRN PRN #180 ml 12/02/18 pantoprazole 40 mg PO Q24H #30 tab 12/02/18 prednisone 20 mg PO DAILY #15 tab 06/15/19 Allergies Allergy/AdvReac Type Severity Reaction Status Date / Time No Known Allergies Allergy Unverified 12/06/18 07:23 General Stated Complaint: Chest Pain BRYAN: 2 Review of Systems Narrative: 06/08 Review of Systems completed and is negative except as stated above in HPI (Systems reviewed: Const, Eyes, ENT, Resp, CV, GI, , MSK, Skin, Neuro) PFSH Medical History Abdominal aortic aneurysm (AAA) (Chronic) COPD (chronic obstructive pulmonary disease) (Chronic) Hyperlipidemia (Chronic) Lung cancer, upper lobe (Resolved) Status post left lobectomy with no other treatment and no evidence of recurrence Surgical History History of surgical procedure (Chronic) multiple vascular procedures/bypass grafts BLE S/P AAA repair (Chronic) S/P lobectomy of lung (Resolved) Social History Smoking/Tobacco Use Status: Current-Occasional Tobacco Type: cigarettes Alcohol Intake: never Drug use: Never Substance use type: does not use Do you feel safe at home: Yes Do you feel safe in your relationship?: Yes Exam Narrative Exam Narrative: Vitals: Afebrile. Normal vital signs and room air pulse oximetry. Const: Thin elderly male in NAD. HEENT: NC/AT. Normal facial exam. Eyes: Normal conjunctiva and sclera. Neck: Supple. Trachea midline. Lungs: Normal respiratory effort. Chest wall minimal tenderness right upper lateral area. Lungs with diffuse scattered wheezing. Cor: RRR without murmur/gallop. Good radial pulses. GI: Soft. NT/ND. No guarding or rebound. Neuro: A+O x 3. CN grossly in tact. Good strength and no focal deficit. Ext: No C/C/E. No calf tenderness. Skin: Warm and dry without rash. Course Vital Signs Vital signs: Vital Signs Temperature 97.9 F 06/24/19 23:29 Pulse 91 H 06/24/19 23:29 Respiratory Rate 19 06/24/19 23:29 Blood Pressure 133/76 06/24/19 23:29 Pulse Oximetry 97 06/24/19 23:29 Temperature 97.9 F 06/24/19 23:29 Pulse 91 H 06/24/19 23:29 Respiratory Rate 20 06/24/19 23:37 Respiratory Effort 06/24/19 23:37 Blood Pressure 133/76 06/24/19 23:29 Blood Pressure Position Supine 06/24/19 23:29 Pulse Oximetry 97 06/24/19 23:29 Oxygen Delivery Method Room Air 06/24/19 23:29 Oxygen Flow Rate 0 06/24/19 23:29 Pain Level 7 06/25/19 00:02 Lab/Test Results Lab/Test Results: Laboratory Tests Range/Units 06/24/19 06/24/19 06/24/19 23:45 23:45 23:45 WBC (4.4-10.8) k/cumm 14.89 H RBC (4.50-6.00) m/cumm 4.55 Hgb (13.5-17.5) g/dL 14.5 Hct (40.0-50.0) % 42.1 MCV (80-95) fL 92.5 MCH (27.0-33.0) pg 31.9 MCHC (32.0-36.0) g/dL 34.4 RDW (11.8-14.1) % 14.3 H Plt Count (130-400) x1000/uL 169 MPV (8.0-11.0) fL 10.0 Immature Gran % 0.3 Neutrophils % 78.9 Lymphocytes % 9.5 Monocytes % 10.7 Eosinophils % 0.5 Basophils % 0.1 Absolute Neutrophils (1.2-6.7) k/cumm 11.75 H Absolute Lymphocytes (1.2-3.4) k/cumm 1.41 Absolute Monocytes (0.11-0.7) k/cumm 1.59 H Absolute Eosinophils (0.0-0.7) k/cumm 0.07 Absolute Basophils (0.0-0.2) k/cumm 0.01 Differential Comment Agrees w/ instrument RBC Morphology Normal D-Dimer (<500) ng/mlFEU 3778 H Sodium (136-145) mmol/L 141 Potassium (3.5-5.1) mmol/L 3.5 Chloride (98-107) mmol/L 105 Carbon Dioxide (21.0-32.0) mmol/L 26.7 Anion Gap (3-11) mmol/L 9.3 BUN (7-18) mg/dL 21 H Creatinine (0.70-1.30) mg/dL 2.01 H Estimated GFR/1.73 m2 (mL/min/1.73m2) 33.30 Glucose (70-100) mg/dL 138 H Calcium (8.5-10.1) mg/dL 8.7 Magnesium (1.8-2.4) mg/dL 2.2 Total Bilirubin (0.2-1.0) mg/dL 0.3 AST (15-37) U/L 14 L ALT (16-63) U/L 36 Alkaline Phosphatase (46-116) U/L 96 Troponin I (0.00-0.06) ng/mL < 0.05 Total Protein (6.4-8.2) g/dL 6.6 Albumin (3.4-5.0) g/dL 3.5
--- NOTE | 2019-06-25 02:19 | HPE_ITS ---
Date of service: 06/25/19 Time of Service: 02:19 Assessment and Plan Assessment and plan (1) Dyspnea: Status: Acute (2) Pleuritic chest pain: Status: Acute Assessment and plan: Given his elevated d-dimer, and elevated BNP one needs to rule out pulmonary embolism, however, his CAREN precluded doing the definitive testing of CTA of his chest. Therefore, I agree w/ Dr. Mora starting him on heparin drip overnight and getting V/Q scan along w/ venous duplex of his legs in the a.m. althoug he does not appear to have any calf tenderness or swelliing. The d-dimer very well may be from his COPD exacerbation or there may be an incipient infection. I will treat him w/ iv corticosteroids for his COPD which would calm any pleurisy. I will also check serial troponin I to urle out any ACS. (3) Elevated d-dimer: Status: Acute Assessment and plan: as above (4) COPD (chronic obstructive pulmonary disease): Status: Acute Assessment and plan: continue his home inhalers of Stiolto and INcruse Ellipta and use DuoNeb aerosols on prn basis. Qualifiers: COPD type: COPD with acute exacerbation Qualified Code(s): J44.1 - Broadcaster soraida obstructive pulmonary disease with (acute) exacerbation (5) Acute kidney injury (nontraumatic): Status: Acute Assessment and plan: Unclear as to cause. No clear cut nephrotoxic meds. He is not on BREEZY inhibitor nor ARB and he denies use of Ibuprofen. I will check UA to check for casts and get renal US in the a.m. Meanwhile will hydrate him w/ iv fluids. History of Present Illness History of Present Illness Chief Complaint: right sided chest pain, dyspnea Narrative: 69 yr old smoker w/ PMH of COPD, current smoker and lung cancer s/p ANNABELLA lobectomy currently in remission, who presented to the ER on 06/15 w/ slightly productive cough, wheezing and dyspnea and was diagnosed w/ COPD exacerbation and put on prednison 20 mg daily and Levaquin 750 mg daily x 5 days. He has finished the Levaquin but is still on prednisone. He presented to the ER tonight w/ acute onset of right sided pleuritic chest pain and worsening dyspnea. He was evaluated in the ER by Dr. Mora w/ CXR that showed no acute infiltrates but demonstrate lung volume loss on the left side 2nd to his l obectomy and chronic scarring. EKG demonstrates SR rate 88 bpm w/ RBBB adn occasional PVC but no acute changes. Troponin I was normal at <0.05 but his BNP was elevatede at 997 and d-dimer is high at 3778. He had no fever but his WBC is high at 14,890 possibly from corticosteroids. He was treated w/ ketorolac for his chest pain and started empirically on heparin drip for possible PE. CTA of chest was not done d/t an CAREN in which his BUN and creatinine are elevated at 21 and 2.01 which are above his baseline of 17 and 1.26 from 12/02/2018. However his creatinine was elevated at 1.43 mg/dL nine days ago on 06/15/2019. Although ibuprofen is on his list of meds, he says that he has not taken any ibuprofen in years. The patient has been started on iv fluids and a heparin drip and is admitted on observation for evaluation of his chest pain and dyspnea and CAREN. He will be empirically treated w/ heparin drip. Echo, V/Q and venous duplex of the legs will be done in the a.m. I will order UA and get renal US in a.m. to evaluate his CAREN. I will keep him on prn aerosol treatments along w/ his home MDI's and give him iv solumedrol for his COPD. Review of Systems Constitutional Constitutional: Denies chills, Denies excessive sweating and Denies fever(s) Eyes Eyes: Reports system reviewed and no additional complaints, except as docu ENT Ears, Nose, Mouth, and Throat: Reports system reviewed and no additional complaints, except as docu Cardiovascular Cardiovascular: Reports chest pain, Reports chest pain at rest, Denies pedal edema, Denies leg edema and Reports dyspnea on exertion Respiratory Respiratory: Denies change in phlegm color, Reports chest congestion, Reports cough, Denies hemoptysis, Reports pain on inspiration, Reports dyspnea on exertion and Reports wheezing Gastrointestinal Gastrointestinal: Reports system reviewed and no additional complaints, except as docu Genitourinary Genitourinary: Reports system reviewed and no additional complaints, except as docu Musculoskeletal Musculoskeletal: Reports system reviewed and no additional complaints, except as docu Integumentary/Breasts Skin/Breast: Reports system reviewed and no additional complaints, except as docu Neurologic Neurologic: Reports system reviewed and no additional complaints, except as docu Psychiatric Psychiatric: Reports system reviewed and no additional complaints, except as docu Endocrine Endocrine: Reports system reviewed and no additional complaints, except as docu and Denies excessive sweating Hematologic/Lymphatic Hematologic/Lymphatic: Reports system reviewed and no additional complaints, e xcept as docu Allergic/Immunologic Allergic/Immunologic: Reports system reviewed and no additional complaints, except as docu and Reports wheezing PFSH Medical History Abdominal aortic aneurysm (AAA) (Chronic) COPD (chronic obstructive pulmonary disease) (Chronic) Hyperlipidemia (Chronic) Lung cancer, upper lobe (Resolved) Status post left lobectomy with no other treatment and no evidence of recurrence Surgical History History of surgical procedure (Chronic) multiple vascular procedures/bypass grafts BLE S/P AAA repair (Chronic) S/P lobectomy of lung (Resolved) Social History Smoking/Tobacco Use Status: Current-Occasional Tobacco Type: cigarettes Alcohol Intake: never Drug use: Never Substance use type: does not use Do you feel safe at home: Yes Do you feel safe in your relationship?: Yes Meds Home Medications and Allergies Home Medications Medication Instructions Recorded Confirmed Type aspirin [Aspir-81] 81 mg PO DAILY 04/25/14 06/24/19 History rosuvastatin [Crestor] 40 mg PO QPM 04/25/14 06/24/19 History Incruse Ellipta 1 puff IN PRN PRN 08/21/17 06/24/19 History Stiolto Respimat 2 puff INHALATION DAILY 07/03/18 06/24/19 History acetaminophen [Acetaminophen Extra 500 mg PO QID PRN 07/03/18 06/25/19 History Strength] ipratropium-albuterol 3 ml UPD Q6H PRN PRN #180 ml 12/02/18 06/24/19 Rx pantoprazole 40 mg PO Q24H #30 tab 12/02/18 06/24/19 Rx prednisone 20 mg PO DAILY #15 tab 06/15/19 06/24/19 Rx Allergies Allergy/AdvReac Type Severity Reaction Status Date / Time No Known Allergies Allergy Unverified 12/06/18 07:23 Exam Const General: cooperative and ill appearing chronically Nutritional Appearance: underweight Orientation: alert, awake and oriented x3 Neck Neck: normal visual inspection, full ROM, no lymphadenopathy, no meningeal signs, trachea midline, supple and no JVD Thyroid: thyroid normal Lymphatic: no lymphadenopathy noted Resp Effort & Inspection: normal respiratory effort and able to speak in complete sentences Auscultation: wheezes expiratory wheezes, scattered wheezes, lower bilaterally and upper bilaterally Percussion: percussion normal Cardio Jugular venous pressure: no JVD Palpation: normal PMI Rate: regular rate Rhythm: regular rhythm Heart Sounds: S1 normal, S2 normal, abnormal opening sounds loud S2, no gallops, no murmurs and no rubs Bruits: no abdominal aortic bruits and no carotid bruits Pulses: normal peripheral pulses GI Inspection: normal to inspection Palpation: soft and no hepatosplenomegaly Percussion: normal to percussion Skin General skin exam: no rashes or lesions noted, elasticity normal and turgor normal Lesions: no lesions Rashes: no rashes Trauma: no lacerations or abrasions Neuro General: alert, awake, oriented x3, moves all extremities, no focal motor defici ts and CN's II-XI intact bilaterally Cognition: normal cognition Speech: speech normal Motor: muscle tone normal throughout, strength 5/5 throughout, no pronator drift, no movement abnormalities noted and no fasciculations Sensory Exam: no sensory deficits noted Extrem General: normal to inspection, full ROM, normal capillary refill, no joint enlargement, no pedal edema and no calf tenderness Psych Appearance: disheveled Mental Status: mental status grossly normal Speech and Movement: speech and movement normal Affect: normal affect Attitude: cooperative Thought Content: normal Insight: insight good Judgment: judgment good Results Labs Result diagrams: 06/24/19 23:45 06/24/19 23:45 Labs: Laboratory Results - last 24 hr 06/24/19 06/24/19 06/24/19 23:45 23:45 23:45 WBC 14.89 H RBC 4.55 Hgb 14.5 Hct 42.1 MCV 92.5 MCH 31.9 MCHC 34.4 RDW 14.3 H Plt Count 169 MPV 10.0 Immature Gran % 0.3 Neutrophils % 78.9 Lymphocytes % 9.5 Monocytes % 10.7 Eosinophils % 0.5 Basophils % 0.1 Absolute Neutrophils 11.75 H Absolute Lymphocytes 1.41 Absolute Monocytes 1.59 H Absolute Eosinophils 0.07 Absolute Basophils 0.01 Differential Comment Agrees w/ instrument RBC Morphology Normal D-Dimer 3778 H Sodium 141 Potassium 3.5 Chloride 105 Carbon Dioxide 26.7 Anion Gap 9.3 BUN 21 H Creatinine 2.01 H Estimated GFR/1.73 m2 33.30 Glucose 138 H Calcium 8.7 Magnesium 2.2 Total Bilirubin 0.3 AST 14 L ALT 36 Alkaline Phosphatase 96 Troponin I < 0.05 Total Protein 6.6 Albumin 3.5 Last Vital Signs Temp 36.6 C 06/24/19 23:29 Pulse 91 H 06/24/19 23:29 Resp 20 06/24/19 23:37 BP 133/76 06/24/19 23:29 Pulse Ox 97 06/24/19 23:29
--- NOTE | 2019-06-25 02:36 | NUR.NOTE ---
Power #20 to LAC. Heparin drip a/o. Pt states able to contact to inform her of his admission. Hospitalist in to julia pt.
[2019-06-25 02:43] LABS: INR 1.1 (0.9-1.1); Prothrombin Time 10.9 sec (9.3-11.0)
[2019-06-25 03:34] LABS: NT-proBNP 997 pg/mL
[2019-06-25] MEDS: methylPREDNISolone SUCC 125 MG VIAL 80 MG IVP ×3 (04:14→19:51)
[2019-06-25] MEDS: Pantoprazole 40 MG TABCR PO (04:14)
[2019-06-25 06:28] LABS: Clarity CLEAR (Clear); Glucose Negative (Negative); Ketones Negative (Negative); Leukocyte Esterase Negative (Negative); Nitrite Negative (Negative)
[2019-06-25 06:29] LABS: Bilirubin Negative (Negative); Blood Trace-lysed (Negative); Urobilinogen 0.2 EU/dL (Up TO 0.2)
[2019-06-25 06:30] LABS: Bacteria Rare HPF (Negative); C & S Indicated? No; Casts Negative LPF (Negative); Crystals Negative HPF (Negative); Epithelial Cells Few HPF (Negative); Mucus Negative (Negative); WBC 0-2 HPF (0-5)
[2019-06-25 06:31] LABS: Troponin I < 0.05 ng/mL (0.00-0.06)
--- NOTE | 2019-06-25 08:15 | DI.US_ITS ---
EXAM: US EXTREMITY VENOUS BI US EXTREMITY VENOUS BI CLINICAL HISTORY: elevated d-dimer. elevated d-dimer TECHNIQUE: Lower extremity venous ultrasound performed using grayscale, color-flow, and spectral Dop pler analysis. COMPARISON: No exams were available for comparison FINDINGS: The common femoral, femoral and popliteal veins demonstrate normal compressibility, augmentation, and color Doppler. The posterior tibial veins are patent. The saphenous vein appears free of thrombus. No Reed's cyst or hematoma is seen. IMPRESSION: No evidence of DVT.
--- NOTE | 2019-06-25 08:15 | DI.US_ITS ---
EXAM: US RENAL CLINICAL HISTORY: CAREN TECHNIQUE: Ultrasound performed using standard protocol. COMPARISON: No exams were available for comparison FINDINGS: The right kidney measures 10.4 cm in length. The left kidney measures 11.0 cm in length. The paren chymal thickness and echogenicity appears normal. No stones or hydronephrosis is seen. The prostate volume is calculated at 26 cc. The prevoid bladder volume measured 54 cc. The patient was unable t o void. Both ureteral jets were visualized. No bladder calculus or bladder mass is seen. IMPRESSION: Negative renal ultrasound. Patient was unable to void for postvoid residual measurement.
[2019-06-25] MEDS: Aspirin E.C. 81 MG TABEC PO (08:52)
[2019-06-25 09:18] LABS: Abs Immature Grans 0.04 k/cumm (0.0-0.09); Absolute Basophil Count 0.01 k/cumm (0.0-0.2); Absolute Neutrophil Count 12.44 k/cumm (1.2-6.7); Basophils % 0.1; Eosinophils % 0.7; HCT 42.9 % (40.0-50.0); HGB 14.5 g/dL (13.5-17.5); Immature Grans % 0.3; Lymphocytes % 5.3; Mean Corp. HGB Concentration 33.8 g/dL (32.0-36.0); Mean Corpuscular Hemoglobin 31.3 pg (27.0-33.0); Mean Corpuscular Volume 92.7 fL (80-95); Mean Platelet Volume 10.1 fL (8.0-11.0); Monocytes % 2.8; Neutrophils % 90.8; Platelet Count 167 x1000/uL (130-400); RBC 4.63 m/cumm (4.50-6.00); RBC Distribution Width 14.4 % (11.8-14.1)
[2019-06-25 09:25] LABS: Absolute Lymphocyte Count 0.73 k/cumm (1.2-3.4); Absolute Monocyte Count 0.38 k/cumm (0.11-0.7)
[2019-06-25 09:30] LABS: BUN 19 mg/dL (7-18); CREATININE 1.68 mg/dL (0.70-1.30); Calcium 8.7 mg/dL (8.5-10.1); Chloride 108 mmol/L (98-107); Estimated GFR 40.96 (mL/min/1.73m2); Glucose 127 mg/dL (70-100); Potassium 3.6 mmol/L (3.5-5.1); Sodium 142 mmol/L (136-145)
[2019-06-25 09:32] LABS: PTT Activated 64.4 sec (21.0-31.4)
[2019-06-25 09:45] LABS: Troponin I < 0.05 ng/mL (0.00-0.06)
--- NOTE | 2019-06-25 10:30 | DI.US_ITS ---
APPROVED REPORT Conclusion Left Ventricle : The left ventricle is normal size. There is normal left ventricular wall thickness. The left ventricular ejection fraction is within the normal range. There is normal LV segmental wall motion. LVEF is 65-70%. There is evidence of impaired relaxation. Right Ventricle : The right ventricle is normal size. The right ventricular systolic function is norm al. Atria : The left atrium size is normal. The right atrium size is normal. Aortic Valve : The aortic valve is normal in structure. Aortic valve is trileaflet. No aortic regurgi tation is present. There is no aortic valvular stenosis. Mitral Valve : The mitral valve is normal in structure. Trace mitral regurgitation. No evidence of mi tral valve stenosis. Tricuspid Valve : The tricuspid valve is normal in structure. Trace to mild tricuspid regurgitation. Pulmonic Valve : Pulmonic valve is grossly normal in structure. Great Vessels : IVC is normal in size and collapses >50% with inspiration. RVSP is estimated to be b etween 36-40 mmHg. Compared to echocardiogram dated 10/14/2017, there is no significant change. EXAM: Comprehensive 2D, Doppler, and color-flow Echocardiogram [facility] CHRISTIANO Kruger (AE) Indications: Pleuratic Chest Pain Left Ventricle The left ventricle is normal size. The left ventricular ejection fraction is within the normal range. There is normal left ventricular wall thickness. There is normal LV segmental wall motion. There is evidence of impaired relaxation LVEF is 65-70%. Right Ventricle The right ventricle is normal size. The right ventricular systolic function is normal. Atria The left atrium size is normal. The right atrium size is normal. Aortic Valve The aortic valve is normal in structure. Aortic valve is trileaflet. There is no aortic valvular sten osis. No aortic regurgitation is present. Mitral Valve The mitral valve is normal in structure. No evidence of mitral valve stenosis. Trace mitral regurgita tion. Tricuspid Valve The tricuspid valve is normal in structure. Trace to mild tricuspid regurgitation. Pulmonic Valve Pulmonic valve is grossly normal in structure. Trace pulmonic regurgitation. Great Vessels The aortic root is normal in size. IVC is normal in size and collapses >50% with inspiration. RVSP is estimated to be between 36-40 mmHg Pericardium There is no pericardial effusion. 2D Dimensions IVSd 0.83 cm M: 0.6-1.2 LV EDV A2C 74.24 mL PWd 0.83 cm M: 0.6 - 1.2 LV EDV A4C 59.23 mL LVDd 4.13 cm M: 4.2 - 5.9 LA Volume Index A2C 24.98 mL/m2 LVDs 2.48 cm M: 2.5 - 4.0 LA Volume Index A4C 25.37 mL/m2 Aortic Root 2.84 cm M: 3.1 - 3.7 LA Volume Index Biplane 26.93 mL/m2 Left Atrium 3.12 cm M: 3.0 - 4.0 LA Area A4C 16.65 cm2 RA Area A4C 13.66 cm2 LA Area A2C 15.45 cm2 LVOT 1.76 cm (M/F) 1.5-2.5 LA/Aortic Root Ratio 0.91 Ascending Aorta 3.12 cm M: 2.6 - 3.4 EF AP4 58.96 % LVEF (Teich) 70.84 % EF AP2 55.55 % LVEF (Strong's) 57.83 % M: 52 - 72 EF BP 57.83 % FS 39.80 % LV Diastology E Decel Time 232.00 (160-240 msec) E/A Ratio 1.0 Aortic Valve LVOT Area 2.45 cm2 LVOT Peak Aurelio. 1.42 m/s LVOT Mean Aurelio. 0.80 m/s LVOT Peak Gr. 8.09 mmHg LVOT Mean Gr. 3.24 mmHg LVOT VTI 0.29 m AoV Peak Aurelio. 1.79 (0.5-1.3 m/s) AoV Mean Aurelio. 1.11 m/s AO Peak GR. 12.80 mmHg AO Mean GR. 5.77 (<5 mmHg) AO VTI 0.33 (0.18-0.25 m) MARK (VTI) 2.17 (2.5-4.5 cm2) MARK (VTI) Index 1.28 cm/m2 Mitral Valve MV E Max Aurelio. 0.95 (0.4-1.3 m/s) MV A Velocity 0.99 (0.4-1.3 m/s) E/A Ratio 0.96 MV Decel. Time 232.06 (160-240 msec) MV PHT 67.30 msec MVA PHT 3.27 cm2 Tricuspid Valve TR P. Velocity 3.01 m/s TV Regurg Vmax 3.01 m/s TR P. Gradient 36.36 mmHg
--- NOTE | 2019-06-25 11:03 | PHARADMIT ---
Admission Pharmacy Clinical Review CHEST PAIN, CAREN, COPD Code Status DNR/DNI Current Weight Wgt-60 kg Renally Cleared and Narrow Therapeutic Index Meds CrCl~36 mL/min Meds-OK QTc Value / Action Taken QTc-450 na BP Control, Fever BP-124/70 Tmax-36.6C Electrolytes reviewed Na- 142 K+3.6 Mag-2.2 DVT Prophylaxis Heparin drip, ASA-ec, Opiate Usage / Scheduled Bowel Regimen Ordered Yes Yes Plt/SCr for Heparin / Enoxaparin PLts-167 SCr-1.68 INR for Warfarin INR-1.1 H/H stable, WBC/Bands H&H- 14.5/42.8 WBC-13.7 Antibiotic appropriateness none Cultures and Sensitivities none Surgical ABX d/c within 24 hr NA DM control / Insulin Dosing BG-127 Heart Failure (Check EF%) (BREEZY's, B-Block, Diuretics) None IV to PO Switch No Home Meds Reviewed Yes Home Meds Not Ordered Entered Comments Stoilto entered as non-formulary Bulk Med
[2019-06-25 11:49] LABS: Procalcitonin 0.1 ng/mL
[2019-06-25 12:31] LABS: COMMENT (LAB VIEW ONLY) 42.42 mg/dL; Prot/Crea Ur Ratio 0.96
--- NOTE | 2019-06-25 13:30 | DI.NM_ITS ---
EXAM: NM LUNG SCAN AND VENT PERF AEROS CLINICAL HISTORY: dyspnea, elevated d-dimer; r/o PE TECHNIQUE: 35.0 millicuries of technetium 99m DTPA were administered via aerosol. 4.8 millicuries of technetium 99m MAA were administered IV for the perfusion scan. COMPARISON: CT CHEST WO from 01/27/2019 XR CHEST 2V PA LATERAL from 06/15/2019 XR CHEST 2V PA LATERAL from 06/25/2019 XR CHEST 2V PA LATERAL from 06/25/2019 FINDINGS: There is left-sided volume loss as seen on previous chest x-ray. There is poor ventilation of the l eft lung. The perfusion of the left lung is better than the ventilation. There are no mismatched ve ntilation perfusion defects. There is clumping of pharmaceutical on the ventilation images, which co uld indicate air trapping or emphysematous changes. IMPRESSION: Low probability for pulmonary embolism.
--- NOTE | 2019-06-25 13:40 | CHAPLAIN ---
Hayes was sitting up in his chair waiting for a nurse to come look at his IV access sight. He told me that his branch associate teller, Rev. Wellington Winn has already been in to visit him. I explained my role and offered support as well.
[2019-06-25] MEDS: Heparin 5,000 UNITS/ML VIAL 5000 UNITS SC (18:05)
--- NOTE | 2019-06-25 18:37 | PDOC.CMIN ---
- If Service Date Differs Date of service: 06/25/19 Time of Service: 18:37 Care Management Initial Assess REASON FOR HOSPITALIZATION:: Dyspnea PAST MEDICAL HISTORY/PAST SURGICAL HISTORY:: Medical History . Abdominal aortic aneurysm (AAA) (Chronic). COPD (chronic obstructive pulmonary disease) (Chronic). Hyperlipidemia (Chronic). Lung cancer, upper lobe (Resolved). Status post left lobectomy with no other treatment and no evidence of recurrence. Surgical History . History of surgical procedure (Chronic). multiple vascular procedures/bypass grafts BLE. S/P AAA repair (Chronic). S/P lobectomy of lung (Resolved) PREVIOUS FUNCTIONAL STATUS/SOCIAL/FAMILY SUPPORTS:: Hayes lives in a single family home in [facility] with his and 2 children. He is not currently employed but has worked in the [employer] business in the past. He is independent with ADLs at [employer] and [employer]. CURRENT FUNCTIONAL STATUS:: Hayes was sititng up in a chair when CM met with him. He was polite but not talkative, answering questions but refrained from initiating any conversation. He stated that he hopes to be discharged tomorrow. ADVANCE DIRECTIVES:: none on file Has patient been provided with information about the portal?: No Did the patient sign up for the portal?: No CODE STATUS:: DNR/DNI INSURANCE COVERAGE / FINANCIAL ISSUES:: Medicare CURRENT HOME/COMMUNITY SERVICES/EQUIPMENT:: Disability benefits PRIMARY CARE PHYSICIAN:: Rylan Page PATIENT/FAMILY EDUCATION NEEDS:: Discharge plan, limitations, follow up plan, Ask Me Three. TRANSPORTATION:: via private vehicle with family PLAN:: Hayes will return home with no new services. He will follow up with his PCP and discharge plan of care. CM will continue to support patient, family and discharge planning considerations.
[2019-06-25] MEDS: Rosuvastatin 10 MG TAB 40 MG PO (19:51)
[2019-06-26 00:25] VITALS: BP 120/67; PULSE 73; RESP 16; TEMP 35.7; O2SAT 95
[2019-06-26] MEDS: Normal Saline 1,000 ML 125 ML IV (00:29)
[2019-06-26] MEDS: Heparin 5,000 UNITS/ML VIAL 5000 UNITS SC ×2 (02:01→09:20)
[2019-06-26 03:25] VITALS: BP 136/75; PULSE 81; RESP 18; TEMP 36.9; O2SAT 94
[2019-06-26] MEDS: methylPREDNISolone SUCC 125 MG VIAL 80 MG IVP (03:26)
[2019-06-26 07:01] VITALS: PULSE 82
[2019-06-26 07:30] VITALS: BP 136/74; PULSE 68; RESP 20; TEMP 36.9; O2SAT 96
[2019-06-26 07:35] LABS: Abs Immature Grans 0.09 k/cumm (0.0-0.09); Absolute Monocyte Count 0.49 k/cumm (0.11-0.7); Basophils % 0.1; HCT 36.8 % (40.0-50.0); HGB 12.3 g/dL (13.5-17.5); Immature Grans % 0.5; Lymphocytes % 3.5; Mean Corp. HGB Concentration 33.4 g/dL (32.0-36.0); Mean Corpuscular Hemoglobin 31.2 pg (27.0-33.0); Mean Corpuscular Volume 93.4 fL (80-95); Mean Platelet Volume 10.2 fL (8.0-11.0); Monocytes % 2.7; Neutrophils % 93.2; Platelet Count 150 x1000/uL (130-400); RBC 3.94 m/cumm (4.50-6.00); RBC Distribution Width 14.2 % (11.8-14.1); White Blood Cell Count 18.33 k/cumm (4.4-10.8)
[2019-06-26 07:36] LABS: Absolute Basophil Count 0.02 k/cumm (0.0-0.2); Absolute Lymphocyte Count 0.64 k/cumm (1.2-3.4); Absolute Neutrophil Count 17.08 k/cumm (1.2-6.7)
[2019-06-26 07:42] LABS: Anion Gap 8.6 mmol/L (3-11); BUN 18 mg/dL (7-18); CO2 22.4 mmol/L (21.0-32.0); CREATININE 1.38 mg/dL (0.70-1.30); Chloride 109 mmol/L (98-107); Glucose 164 mg/dL (70-100); Potassium 3.6 mmol/L (3.5-5.1); Sodium 140 mmol/L (136-145)
[2019-06-26 07:47] LABS: PTT Activated 22.7 sec (21.0-31.4)
[2019-06-26] MEDS: Aspirin E.C. 81 MG TABEC PO (09:18)
[2019-06-26] MEDS: Pantoprazole 40 MG TABCR PO (09:18)
[2019-06-26] MEDS: Potassium Chloride 20 MEQ TABCR 40 MEQ PO (11:33)
[2019-06-26 12:19] VITALS: BP 126/72; PULSE 69; RESP 18; TEMP 36.8; O2SAT 96
--- NOTE | 2019-06-26 12:35 | DSE_ITS ---
Date of service: 06/26/19 Time of Service: 12:35 DS: Diagnosis Discharge Diagnosis (1) Dyspnea: Status: Acute (2) Pleuritic chest pain: Status: Acute (3) Elevated d-dimer: Status: Acute (4) COPD (chronic obstructive pulmonary disease): Status: Acute (5) Acute kidney injury (nontraumatic): Status: Acute Discharge Plan Disposition Patient Disposition: HOME Condition: Good Discharge Details Chief Complaint: Chest Pain Clinical Impression: Right-sided chest pain, COPD (chronic obstructive pulmonary disease), CAREN (acute kidney injury) Reason For Visit: CHEST PAIN, CAREN, COPD Admit Date/Time: 06/25/19 02:52 Admit Provider: Dami Muro Attending Provider: Dami Muro Primary Care Provider: Rylan Page [facility] Hospital Course: Hayes Jennings is a very pleasant 69 year old man with a past medical history significant for COPD, current smoker and lung cancer s/p ANNABELLA lobectomy current ly in remission, who was recently treated for COPD exacerbation with levaquin and prednisone. He was completing the prednisone taper when he presented back to the ED on 06/25/19 with right-sided pleuritic chest pain and worsening dyspnea. In the ED, he had a chest x-ray that was negative for an acute process. His EKG showed sinus rhythm with a rate of 88 bpm with RBBB and an occasional PVC. His troponin was negative, BNP elevated at 997. His d-dimer was also high at 3778, however, he was unable to undergo a CTA due to CAREN. His creatinine was elevated a 2.01, BUN 21, his baseline creatinine is around 1.2-1.3. Due to concern for possible PE, he was started on a heparin drip. He was given IV steroids. He was given IV fluids for his acute kidney injury. He was admitted for further monitoring and treatment. He went on to have a renal ultrasound the morning after admission which was negative. His renal function improved with IV fluids. At the time of discharge, his creatinine was improved to 1.38. His VQ scan showed low probability for pulmonary embolism. Echocardiogram showed LVEF of 65-70%, mild tricuspid stenosis, RVSP was estimated at 36-40 mmHg. He also had bilateral lower extrem ity ultrasounds which were negative for DVT. Once the VQ scan results were available showing no PE, the heparin drip was discontinued. On the morning of discharge the patient reports that his right sided pleuritic chest pain had completely resolved. He did have a leukocytosis of 18.33, with no fevers, worsening dyspnea or cough, in the setting of high- dose IV steroids. He is eating and drinking and tolerating his diet. He was eager for discharge home. He will be discharged home on a steroid taper. He will follow-up with his primary care provider as an outpatient. Home Meds and New Rx's Prescriptions: New prednisone 10 mg tablet 10 mg PO DAILY Qty: 20 RF: 0 Continued aspirin [Aspir-81] 81 MG tablet,delayed release (DR/EC) 81 mg PO DAILY RF: 0 rosuvastatin [Crestor] 40 MG tablet 40 mg PO QPM RF: 0 Incruse Ellipta 1 PUFF blister with device 1 puff IN PRN PRNRF: 0 prednisone 20 mg tablet 20 mg PO DAILY Qty: 15 RF: 0 acetaminophen [Acetaminophen Extra Strength] 500 mg Tablet 500 mg PO QID PRNRF: 0 Stiolto Respimat 2.5-2.5 mcg/actuation Mist 2 puff Inhalation DAILY RF: 0 ipratropium-albuterol 0.5 mg-3 mg(2.5 mg base)/3 mL Solution For Nebulization 3 ml UPD Q6H PRN PRN (Reason: shortness of breath or wheezing) Qty: 180 RF: 0 pantoprazole 40 mg Tablet,Delayed Release (Dr/Ec) 40 mg PO Q24H Qty: 30 RF: 0 Discharge Instructions Instructions: COPD (Chronic Obstructive Pulmonary Disease) (DC) Additional Instructions: Taper prednisone: take 4 tabs daily x2 days, then decrease to 3 tabs daily x2 days, then 2 tabs daily x2 days, then one tab daily x2 days then stop. Follow up with your PCP as scheduled. You will need to have labs drawn next week to reassess your renal function and your white blood cell count. Take care! Stand Alone Forms: Nursing Discharge Form Referrals: Rylan Page MD [Primary Care Provider] - 07/03/19 3:20 pm Activity:: Activity as Tolerated Equipment/Supplies:: No Equipment Needed Diet:: As Tolerated Discharge Orders Discharge Orders: Discharge Order (Routine); Ordered 06/26/19 Ordered By: Elizabeth Pulido Other Ambulatory Orders: Basic Metabolic Panel (Routine) Timeframe: 1 Week Facility: [facility] - Location: Laboratory Outpatient Ordered By: Elizabeth Pulido Complete Blood Count No Diff (Routine) Timeframe: 1 Week Facility: [facility] - Location: Laboratory Outpatient Ordered By: Elizabeth Pulido DS: Summary Status at Discharge Functional status at discharge: independent ambulation Overall status at discharge: patient is progressing back to baseline Mental Status: mental status grossly normal Speech and Movement: speech and movement normal Mood: congruent mood Affect: normal affect Exam Narrative Exam Narrative: General: middle-aged man, sitting up in the chair, in NAD. HEENT: normocephalic, atraumatic, pupils equal and round, EOMI, mucous membranes moist. Neck: supple, no JVD. Cardiovascular: heart has regular rate and rhythm, no murmur appreciated, nontac hycardic. Respiratory: respirations even and unlabored. Scattered wheezes througout lung duenas. GI: abdomen soft, nontender, normal bowel sounds. Extremities: no clubbing, cyanosis or edema. Psych Mental Status: mental status grossly normal Speech and Movement: speech and movement normal Mood: congruent mood Affect: normal affect DS: Data Vitals/I&O Vitals and I&O: Vital Signs Temperature 36.8 C 06/26/19 12:19 Temperature Source Tympanic 06/26/19 12:19 Pulse 69 06/26/19 12:19 Pulse Rhythm Regular 06/26/19 09:24 Respiratory Rate 18 06/26/19 12:19 Respiratory Effort 06/26/19 09:24 Respiratory Depth Normal 06/26/19 09:24 Respiratory Pattern Normal 06/26/19 09:24 Blood Pressure 126/72 06/26/19 12:19 Blood Pressure Position Supine 06/24/19 23:29 Pulse Oximetry 96 06/26/19 12:19 Oxygen Delivery Method Room Air 06/26/19 12:19 Oxygen Flow Rate 0 06/26/19 12:19 Pain Level 0 06/26/19 12:19 Comment 06/26/19 07:30 Intake & Output 06/25/19 06/26/19 06/26/19 23:59 11:59 23:59 Intake Total 2720 / 4885.834 3050 / 3050 Output Total 350 / 350 850 / 850 Balance 2370 / 4535.834 2200 / 2200 Weight 62.7 kg Intake: IV 1999 / 3795.834 1950 / 1950 Oral 720 / 1090 1100 / 1100 Output: Urine 350 / 350 850 / 850 Other: Urine Color Yellow Yellow Urine Appearance Clear Clear Urine Odor Normal Voiding Methods Toilet Urinal Data Completed and Pending Completed studies during hospitalization [Text1]: 06/24/19: EXAM: XR CHEST 2V PA LATERAL INDICATION: right lateral chest pain. COMPARISON: No exams were available for comparison TECHNIQUE: 2D digital imaging was performed. FINDINGS: Again noted is left upper lobectomy. There is left-sided volume loss. The heart size remains normal. Mild fibrotic changes are seen in the right upper lobe. The right lung is otherwise clear. No superimposed infiltrate or effusion is seen. IMPRESSION: Stable left upper lobectomy changes. No acute abnormality is seen. 06/25/19: EXAM: US EXTREMITY VENOUS BI US EXTREMITY VENOUS BI CLINICAL HISTORY: elevated d-dimer. elevated d-dimer TECHNIQUE: Lower extremity venous ultrasound performed using grayscale, color- flow, and spectral Doppler analysis. COMPARISON: No exams were available for comparison FINDINGS: The common femoral, femoral and popliteal veins demonstrate normal compressibility, augmentation, and color Doppler. The posterior tibial veins are patent. The saphenous vein appears free of thrombus. No Reed's cyst or hematoma is seen. IMPRESSION: No evidence of DVT. EXAM: US RENAL CLINICAL HISTORY: CAREN TECHNIQUE: Ultrasound performed using standard protocol. COMPARISON: No exams were available for comparison FINDINGS: The right kidney measures 10.4 cm in length. The left kidney measures 11.0 cm in length. The parenchymal thickness and echogenicity appears normal. No stones or hydronephrosis is seen. The prostate volume is calculated at 26 cc. The prevoid bladder volume measured 54 cc. The patient was unable to void. Both ureteral jets were visualized. No bladder calculus or bladder mass is seen. IMPRESSION: Negative renal ultrasound. Patient was unable to void for postvoid residual measurement. Exam(s) a US:US echocardiogram APPROVED REPORT Conclusion Left Ventricle : The left ventricle is normal size. There is normal left ventricular wall thickness. The left ventricular ejection fraction is within the normal range. There is normal LV segmental wall motion. LVEF is 65-70%. There is evidence of impaired relaxation. Right Ventricle : The right ventricle is normal size. The right ventricular systolic function is normal. Atria : The left atrium size is normal. The right atrium size is normal. Aortic Valve : The aortic valve is normal in structure. Aortic valve is trileaflet. No aortic regurgitation is present. There is no aortic valvular stenosis. Mitral Valve : The mitral valve is normal in structure. Trace mitral regurgitation. No evidence of mitral valve stenosis. Tricuspid Valve : The tricuspid valve is normal in structure. Trace to mild tricuspid regurgitation. Pulmonic Valve : Pulmonic valve is grossly normal in structure. Great Vessels : IVC is normal in size and collapses >50% with inspiration. RVSP is estimated to be between 36-40 mmHg. Compared to echocardiogram dated 10/14/2017, there is no significant change. EXAM: Comprehensive 2D, Doppler, and color-flow Echocardiogram EXAM: NM LUNG SCAN AND VENT PERF AEROS CLINICAL HISTORY: dyspnea, elevated d-dimer; r/o PE TECHNIQUE: 35.0 millicuries of technetium 99m DTPA were administered via aerosol. 4.8 millicuries of technetium 99m MAA were administered IV for the perfusion scan. COMPARISON: CT CHEST WO from 01/27/2019 XR CHEST 2V PA LATERAL from 06/15/2019 XR CHEST 2V PA LATERAL from 06/25/2019 XR CHEST 2V PA LATERAL from 06/25/2019 FINDINGS: There is left-sided volume loss as seen on previous chest x-ray. There is poor ventilation of the left lung. The perfusion of the left lung is better than the ventilation. There are no mismatched ventilation perfusion defects. There is clumping of pharmaceutical on the ventilation images, which could indicate air trapping or emphysematous changes. IMPRESSION: Low probability for pulmonary embolism. Labs on day of discharge: Labs from last 24 hours 06/26/19 06/26/19 06/26/19 07:03 07:03 07:03 WBC 18.33 H D RBC 3.94 L Hgb 12.3 L D Hct 36.8 L MCV 93.4 MCH 31.2 MCHC 33.4 RDW 14.2 H Plt Count 150 MPV 10.2 Immature Gran % 0.5 Neutrophils % 93.2 Lymphocytes % 3.5 Monocytes % 2.7 Eosinophils % 0.0 Basophils % 0.1 Absolute Neutrophils 17.08 H Absolute Lymphocytes 0.64 L Absolute Monocytes 0.49 Absolute Eosinophils 0.00 Absolute Basophils 0.02 APTT 22.7 Sodium 140 Potassium 3.6 Chloride 109 H Carbon Dioxide 22.4 Anion Gap 8.6 BUN 18 Creatinine 1.38 H Estimated GFR/1.73 m2 51.40 Glucose 164 H Calcium 8.0 L PFSH Medical History Abdominal aortic aneurysm (AAA) (Chronic) COPD (chronic obstructive pulmonary disease) (Chronic) Hyperlipidemia (Chronic) Lung cancer, upper lobe (Resolved) Status post left lobectomy with no other treatment and no evidence of recurrence Surgical History History of surgical procedure (Resolved) multiple vascular procedures/bypass grafts BLE S/P AAA repair (Resolved) S/P lobectomy of lung (Resolved) Social History Smoking/Tobacco Use Status: Current-Occasional Tobacco Type: cigarettes Alcohol Intake: never Drug use: Never Substance use type: does not use Do you feel safe at home: Yes Do you feel safe in your relationship?: Yes
[2019-06-26 13:39] VITALS: PULSE 78
--- NOTE | 2019-06-26 18:37 | PDOC.CMDIS ---
- If Service Date Differs Date of service: 06/26/19 Time of Service: 18:37 LACE Index Scoring Tool - Questions: Length of Stay (in days): 1 Acuity (Admit via E.D.?): Yes Comorbidities: Chronic Pulmonary Disease, Any Tumor E.D. Visits: 5 - Answers: Total Score: 13 Risk of Readmission: High Risk Care Management Discharge Reason for Hospitalization: Dyspnea Discharge Plan: Magen will discharge home with no services. He will follow up with his PCP and discharge plan of care. magen will transport with his via private vehicle. Patient/Family Education Needs: Discharge plan, limitations, follow up plan, Ask Me Three.
== END 2019-06-26 15:11 | disposition home or self-care (01) ==
LOC: ER 06-25 03:15 → MS 06-25 03:21
PROVIDERS: Nurse Practitioner; Admitting Provider Internal Medicine; Emergency Provider Emergency Medicine; PCP Internal Medicine; Visit Provider Internal Medicine
DX: R07.81 Pleurodynia (principal); R06.00 Dyspnea, unspecified; N17.9 Acute kidney failure, unspecified; R79.1 Abnormal coagulation profile; J44.9 Chronic obstructive pulmonary disease, unspecified; F17.210 Nicotine dependence, cigarettes, uncomplicated; Z85.118 Personal history of other malignant neoplasm of bronchus and lung; Z90.2 Acquired absence of lung [part of]; E78.5 Hyperlipidemia, unspecified
CPT/HCPCS: 36415; 76770; 80048; 80053; 84145; 93005; 93306; 96361; 96374; 99223; 99239; 99285; 71046; 78582; 81003; 81015; 82565; 83735; 83880; 84156; 84484; 85025; 85379; 85610; 85730; 93010; 93970; 99217; 99220; G0378; J1644; J1885; J2930

== ENCOUNTER 2019-06-29 00:08 | Emergency (ER) | payer MEDICARE, SELFPAY ==
[2019-06-29 00:12] VITALS: BP 137/77; PULSE 78; RESP 16; O2SAT 96
--- NOTE | 2019-06-29 00:14 | ED.GENADUL_ITS ---
Discharge Plan Disposition Patient Disposition: HOME Condition: Good Discharge Details Chief Complaint: Chest Pain Clinical Impression: Right-sided chest pain, Epigastric pain Primary Care Provider: Rylan Page ED Provider: Manuel Mora [place] Meds and New Rx's Prescriptions: New omeprazole 40 mg capsule,delayed release(DR/EC) 40 mg PO DAILY Qty: 20 RF: 0 lidocaine 5 % adhesive patch,medicated 1 patch TP DAILY Qty: 15 RF: 0 Continued aspirin [Aspir-81] 81 MG tablet,delayed release (DR/EC) 81 mg PO DAILY RF: 0 rosuvastatin [Crestor] 40 MG tablet 40 mg PO QPM RF: 0 Incruse Ellipta 1 PUFF blister with device 1 puff IN PRN PRNRF: 0 prednisone 10 mg tablet 10 mg PO DAILY Qty: 20 RF: 0 acetaminophen [Acetaminophen Extra Strength] 500 mg Tablet 500 mg PO QID PRNRF: 0 Stiolto Respimat 2.5-2.5 mcg/actuation Mist 2 puff Inhalation DAILY RF: 0 ipratropium-albuterol 0.5 mg-3 mg(2.5 mg base)/3 mL Solution For Nebulization 3 ml UPD Q6H PRN PRN (Reason: shortness of breath or wheezing) Qty: 180 RF: 0 pantoprazole 40 mg Tablet,Delayed Release (Dr/Ec) 40 mg PO Q24H Qty: 30 RF: 0 Discharge Instructions Additional Instructions: Please continue your prednisone as previously directed at discharge. Start omeprazole to help with your abdominal pain which is likely being caused by prednisone irritating his stomach. You may continue to use acetaminophen for pain. Apply lidocaine patch to chest wall as directed. Follow-up with primary care this week as scheduled. Return to ED for fever, increasing pain, difficulty breathing, vomiting, other concerns or problems. Referrals: Rylan Page MD [Primary Care Provider] - Medical Decision Making Patient continues to have right lateral pleuritic pain for which I admitted him for last week. Work-up in the hospital was negative. He has continued to have the pain. He denies fever. He denies increased cough or shortness of breath. He is on prednisone taper at this point. EKG is unchanged. He is also complaining of some epigastric pain and has mild tenderness there. Suspect related to the steroids that he has been on both prior to admission and subsequently at discharge. I do not think we need to pursue the chest pain any further. He has normal vital signs and room air pulse oximetry and negative work up in hospital. Will place a Lidoderm patch on the chest wall. We will give IV Pepcid and GI cocktail for the epigastric pain. Will check abdominal labs and reevaluate. Patient's labs continue to show elevated white count, likely the result of ster oids. Kidney function remains the same as discharge. Hemoglobin normal. LFTs fine. Lipase fine. On reevaluation patient feeling better both with the chest pain and the epigastric pain. He has follow-up appointment with primary care this week. He does not have to have his labs repeated as we just did them tonight. Will discharge with prescriptions for Lidoderm patch as well as for omeprazole for the next couple weeks while he is on steroids. Return to ED for fever, worsening abdominal pain, vomiting, difficulty breathing, new or worse chest pain. Medical Records Medical records reviewed: Yes I reviewed the patient's medical records. Lab Data Lab results reviewed: Yes I reviewed the patient's lab results. ECG Data Attestation: I personally reviewed and interpreted this ECG (s) as follows: Prior ECG tracings: available for review Interpretation: Sinus rhythm at 75 with right bundle branch block which is old. No acute ST changes. No change from previous. HPI General Mode of arrival: ambulatory . Date/Time Provider Initiated Documentation: 06/29/19 00:10 . Limitations to Documentation: no limitations . Information obtained by: patient, RN notes reviewed and old records reviewed . HPI Narrative: Patient presents to ED with continued right lateral pleuritic chest pain that he was admitted for by me on the . Work-up included VQ scan, bilateral lower extremity ultrasound, cardiac ECHO. All studies were unremarkable. He also had some mild CAREN at that time. It was better after IV fluids. Renal ultrasound was negative. He was discharged on prednisone. He continues to have the same pain in the right lateral chest that runs up and down. No change in breathing, cough. No fever. He does report epigastric abdominal pain now. There is no nausea/vomiting. He has been using acetaminophen without relief. Related Data Home Medications Medication Instructions Recorded Confirmed aspirin [Aspir-81] 81 mg PO DAILY 04/25/14 06/29/19 rosuvastatin [Crestor] 40 mg PO QPM 04/25/14 06/29/19 Incruse Ellipta 1 puff IN PRN PRN 08/21/17 06/29/19 Stiolto Respimat 2 puff INHALATION DAILY 07/03/18 06/29/19 acetaminophen [Acetaminophen Extra 500 mg PO QID PRN 07/03/18 06/29/19 Strength] ipratropium-albuterol 3 ml UPD Q6H PRN PRN #180 ml 12/02/18 06/29/19 pantoprazole 40 mg PO Q24H #30 tab 12/02/18 06/29/19 prednisone 10 mg PO DAILY #20 tab 06/26/19 06/29/19 lidocaine 1 patch TP DAILY #15 each 06/29/19 omeprazole 40 mg PO DAILY #20 cap 06/29/19 Previous Rx's Medication Instructions Recorded ipratropium-albuterol 3 ml UPD Q6H PRN PRN #180 ml 12/02/18 pantoprazole 40 mg PO Q24H #30 tab 12/02/18 prednisone 10 mg PO DAILY #20 tab 06/26/19 lidocaine 1 patch TP DAILY #15 each 06/29/19 omeprazole 40 mg PO DAILY #20 cap 06/29/19 Allergies Allergy/AdvReac Type Severity Reaction Status Date / Time No Known Allergies Allergy Unverified 12/06/18 07:23 General Stated Complaint: Chest Pain BRYAN: 3 Review of Systems Narrative: 06/08 Review of Systems completed and is negative except as stated above in HPI (Systems reviewed: Const, Eyes, ENT, Resp, CV, GI, , MSK, Skin, Neuro) PFSH Medical History Abdominal aortic aneurysm (AAA) (Chronic) COPD (chronic obstructive pulmonary disease) (Chronic) Hyperlipidemia (Chronic) Lung cancer, upper lobe (Resolved) Status post left lobectomy with no other treatment and no evidence of recurrence Surgical History History of surgical procedure (Resolved) multiple vascular procedures/bypass grafts BLE S/P AAA repair (Resolved) S/P lobectomy of lung (Resolved) Social History Smoking/Tobacco Use Status: Current-Occasional Tobacco Type: cigarettes Alcohol Intake: never Drug use: Never Substance use type: does not use Do you feel safe at home: Yes Do you feel safe in your relationship?: Yes Exam Narrative Exam Narrative: Vitals: Afebrile with normal vitals and normal room air pulse ox. Const: Thin elderly male in NAD. HEENT: NC/AT. Normal facial exam. Eyes: Normal conjunctiva and sclera. Neck: Supple. Trachea midline. Lungs: Normal respiratory effort. Few wheezes at the bases. Mild right lateral chest wall tenderness. Cor: RRR without murmur/gallop. Good radial pulses. GI: Soft and non-distended. Mild epigastric tenderness. No RUQ tenderness. No guarding or rebound. Neuro: A+O x 3. CN grossly in tact. Good strength and no focal deficit. Ext: No C/C/E. Skin: Warm and dry without rash. Course Vital Signs Vital signs: Vital Signs Pulse 78 06/29/19 00:12 Respiratory Rate 16 06/29/19 00:12 Blood Pressure 137/77 06/29/19 00:12 Pulse Oximetry 96 06/29/19 00:12 Pulse 78 06/29/19 00:12 Respiratory Rate 16 06/29/19 00:12 Blood Pressure 137/77 06/29/19 00:12 Pulse Oximetry 96 06/29/19 00:12 Pain Level 8 06/29/19 00:12
[2019-06-29 00:24] VITALS: RESP 18
[2019-06-29 00:31] VITALS: BP 145/72; PULSE 59; PULSE 61; RESP 17; O2SAT 98
[2019-06-29] MEDS: Lidocaine 5% Patch 1 PATCH TP (00:33)
[2019-06-29] MEDS: FAMOTIDINE 20 MG/50 ML BAG 100 MG IVPB (00:37)
[2019-06-29 01:01] VITALS: BP 147/75; PULSE 57; PULSE 59; RESP 27; O2SAT 97
[2019-06-29 01:02] LABS: Abs Immature Grans 0.11 k/cumm (0.0-0.09); Absolute Basophil Count 0.02 k/cumm (0.0-0.2); Absolute Lymphocyte Count 0.57 k/cumm (1.2-3.4); Absolute Monocyte Count 0.78 k/cumm (0.11-0.7); Absolute Neutrophil Count 15.88 k/cumm (1.2-6.7); Basophils % 0.1; HCT 41.9 % (40.0-50.0); HGB 14.4 g/dL (13.5-17.5); Immature Grans % 0.6; Lymphocytes % 3.3; Mean Corp. HGB Concentration 34.4 g/dL (32.0-36.0); Mean Corpuscular Hemoglobin 32.1 pg (27.0-33.0); Mean Corpuscular Volume 93.3 fL (80-95); Mean Platelet Volume 9.8 fL (8.0-11.0); Monocytes % 4.5; Neutrophils % 91.5; Platelet Count 189 x1000/uL (130-400); RBC 4.49 m/cumm (4.50-6.00); RBC Distribution Width 14.8 % (11.8-14.1); White Blood Cell Count 17.35 k/cumm (4.4-10.8)
[2019-06-29 01:09] LABS: ALT 106 U/L (16-63); AST 33 U/L (15-37); Albumin 3.5 g/dL (3.4-5.0); Alkaline Phosphatase 95 U/L (46-116); Anion Gap 9.8 mmol/L (3-11); BUN 22 mg/dL (7-18); Bilirubin, Total 0.3 mg/dL (0.2-1.0); CO2 27.2 mmol/L (21.0-32.0); CREATININE 1.38 mg/dL (0.70-1.30); Calcium 8.7 mg/dL (8.5-10.1); Chloride 104 mmol/L (98-107); Glucose 117 mg/dL (70-100); Lipase 83 U/L (73-393); Sodium 141 mmol/L (136-145); Total Protein 6.8 g/dL (6.4-8.2)
== END 2019-06-29 01:20 | disposition home or self-care (01) ==
PROVIDERS: Emergency Provider Emergency Medicine; PCP Internal Medicine
DX: R07.81 Pleurodynia (principal); R10.13 Epigastric pain; J44.9 Chronic obstructive pulmonary disease, unspecified; F17.210 Nicotine dependence, cigarettes, uncomplicated
CPT/HCPCS: 36415; 80053; 83690; 93005; 96365; 99284; 85025; 93010

== ENCOUNTER 2019-11-27 16:03 | Outpatient (REF) | payer MEDICARE, SELFPAY ==
[2019-11-27 17:06] LABS: HCT 43.2 % (40.0-50.0); HGB 14.6 g/dL (13.5-17.5); Mean Corp. HGB Concentration 33.8 g/dL (32.0-36.0); Mean Corpuscular Hemoglobin 31.6 pg (27.0-33.0); Mean Corpuscular Volume 93.5 fL (80-95); Platelet Count 162 x1000/uL (130-400); RBC 4.62 m/cumm (4.50-6.00); RBC Distribution Width 13.4 % (11.8-14.1); White Blood Cell Count 13.05 k/cumm (4.4-10.8)
[2019-11-27 17:08] LABS: Anion Gap 8.3 mmol/L (3-11); BUN 13 mg/dL (7-18); CO2 26.7 mmol/L (21.0-32.0); CREATININE 1.11 mg/dL (0.70-1.30); Calcium 8.5 mg/dL (8.5-10.1); Chloride 104 mmol/L (98-107); Glucose 88 mg/dL (74-106); Potassium 3.9 mmol/L (3.5-5.1); Sodium 139 mmol/L (136-145)
[2019-11-27 17:23] LABS: Absolute Eosinophil Count 0.39 k/cumm (0.0-0.7); Absolute Lymphocyte Count 1.17 k/cumm (1.2-3.4); Absolute Monocyte Count 0.65 k/cumm (0.11-0.7); Absolute Neutrophil Count 10.83 k/cumm (1.2-6.7)
[2019-11-27 17:24] LABS: Diff Comment Manual Differential; RBC Morphology Normal
[2019-11-30 18:58] LABS: SARS-CoV-2 RNA Undetected (Undetected); SARS-CoV-2 Specimen Source Nasopharynx
== END 2019-11-27 16:23 ==
LOC: NCHCN 16:03
PROVIDERS: PCP Internal Medicine; Visit Provider Nurse Practitioner Family
DX: J06.9 Acute upper respiratory infection, unspecified (principal); Z51.81 Encounter for therapeutic drug level monitoring
CPT/HCPCS: 80048; U0003; 85025

== ENCOUNTER 2019-11-29 09:15 | Emergency (ER) | payer MEDICARE, SELFPAY ==
--- NOTE | 2019-11-29 09:21 | ED.GENADUL_ITS ---
Discharge Plan Disposition Patient Disposition: HOME Condition: Good Discharge Details Chief Complaint: SOB Clinical Impression: Dyspnea, COPD (chronic obstructive pulmonary disease), Pneumonia Primary Care Provider: Rylan Page ED Provider: Yisel Jack Home Meds and New Rx's Prescriptions: New azithromycin 250 mg tablet See Rx Instructions .ROUTE .COMPLEX Qty: 6 RF: 0 Continued aspirin [Aspir-81] 81 MG tablet,delayed release (DR/EC) 81 mg PO DAILY RF: 0 rosuvastatin [Crestor] 40 MG tablet 40 mg PO QPM RF: 0 Incruse Ellipta 1 PUFF blister with device 1 puff IN PRN PRNRF: 0 amoxicillin-pot clavulanate 875-125 mg tablet 1 tab PO BID RF: 0 acetaminophen [Acetaminophen Extra Strength] 500 mg Tablet 500 mg PO QID PRNRF: 0 Stiolto Respimat 2.5-2.5 mcg/actuation Mist 2 puff Inhalation DAILY RF: 0 ipratropium-albuterol 0.5 mg-3 mg(2.5 mg base)/3 mL Solution For Nebulization 3 ml UPD Q6H PRN PRN (Reason: shortness of breath or wheezing) Qty: 180 RF: 0 pantoprazole 40 mg Tablet,Delayed Release (Dr/Ec) 40 mg PO Q24H Qty: 30 RF: 0 omeprazole 40 mg capsule,delayed release(DR/EC) 40 mg PO DAILY Qty: 20 RF: 0 lidocaine 5 % adhesive patch,medicated 1 patch TP DAILY Qty: 15 RF: 0 No Action fluticasone propionate [Flonase Allergy Relief] 50 mcg/actuation [place],Suspension 1 spray INTRANASAL BID RF: 0 ranitidine HCl 150 mg Tablet 150 mg PO DAILY RF: 0 albuterol sulfate [ProAir HFA] 90 mcg/actuation Hfa Aerosol Inhaler 2 puff INHALATION .4-6 HOURS PRNRF: 0 prednisone 10 mg tablet 20 mg PO DAILY RF: 0 Discharge Instructions Instructions: Dyspnea (ED), Pneumonia (ED) Additional Instructions: Encourage water intake. Please continue the Augmentin as previously prescribed. Please augment the azithromycin as prescribed today to this. Please use your nebulizer as previously advised. He did sound wheezy and would likely find benefit from this. Please call your primary care provider tomorrow morning to schedule follow-up in the next 1 to 2 days. Please stop smoking. If he develop new or worsening symptoms please seek care urgently once again. Please continue self quarantine as your COVID testing is still pending. Primary care will be in touch regarding these results. Referrals: Rylan Page MD [Primary Care Provider] - Discharge Data Discharge Date/Time-TO BE ENTERED AT DEPARTURE: 11/29/19 12:51 Medical Decision Making Patient is a 69-year-old male presents today with chief complaint of shortness of breath. Patient has had the symptoms for 2 weeks now. States that it feels very similar to when he was admitted in November of last year. At that time, he was admitted for COPD exacerbation and pneumonia. States that he has been seen by his primary care. Has completed a course of doxycycline and prednisone taper with no change in his symptoms. Is currently on Augmentin. He denies any fevers or chills. Reports minimal cough. States the cough is been bringing up white sputum. States that shortness of breath is not Worsened with exertion but rather is a constant level of shortness of breath. He has not been using his PRN nebulizers or inhalers. He had declined imaging of his chest when he saw his primary care provider 2 days ago. Patient denies any known sick contacts. No recent travel. He has COVID testing pending. Past medical history significant for AAA, COPD, hyperlipidemia, lung cancer status post lobectomy. On exam, patient appears chronically ill. He does have scattered expiratory wheezes noted on auscultation. Normal cardiac exam. No notable edema. EKG was obtained and reviewed by Dr. Ramso. Patient is normal sinus rhythm of 83 with a right bundle branch, this is similar compared to previous. No evidence of acute ischemic changes. FINDINGS: Lungs: Hyperexpanded lung duenas consistent with COPD Opacity in the left upper lobe is most likely represents scar Patchy opacities in the bases may represent minimal atelectasis or pneumonia . Pleural space: Unremarkable. No pleural effusion. No pneumothorax. Heart/Mediastinum: Surgical clips in the left hilum Diaphragm: Elevated left hemidiaphragm Bones/joints: Healed left rib fractures IMPRESSION: Patchy opacities in the bases may represent minimal atelectasis or pneumonia . Discussed this findings with the patient. His exam and history is not consi stent with pneumonia as there is a COPD exacerbation. Labs reviewed. Patient had had a bump in his white count 2 days ago and this is since normalized. CMP without significant abnormalities. Troponin is normal, BNP normal. Discussed these findings with the patient. As they did question minimal atelectasis or pneumonia, plan for CT imaging if were more definitive diagnosis is appropriate. We will also evaluate for possible pulmonary embolism. Patient does not have any history of emboli. FINDINGS: Pulmonary arteries: Normal. No pulmonary emboli. Aorta: Unremarkable. No aortic aneurysm. No aortic dissection. Lungs: Surgical clips in the medial left upper lobe consistent with prior lobectomy. Mild opacities in the upper lobes and lingula may represent minimal atelectasis pneumonia . They have decreased compared to the prior study. Pleural space: Unremarkable. No pneumothorax. No pleural effusion. Heart: Unremarkable. No cardiomegaly. No pericardial effusion. Gallbladder and bile ducts: Gallstone in the gallbladder Lymph nodes: Unremarkable. No enlarged lymph nodes. Bones/joints: Unremarkable. No acute fracture. Soft tissues: Unremarkable. IMPRESSION: 1. Surgical clips in the medial left upper lobe consistent with prior lobectomy. 2. Mild opacities in the upper lobes and lingula may represent minimal atelectasis pneumonia . They have decreased compared to the prior study. Unclear if this could potentially indicate an acute pneumonia. However, patient has been afebrile, his white count is improving. I have fairly low suspicion for this but given this finding and the patient's comorbidities we will augment the patient's Augmentin with azithromycin. I did contact the patient's primary care status this plan. Given the pending COVID test and the patient's lack response to previous steroids, will hold off at this time. However, I did advise a he try his as needed medications more frequently as he has not been using this recently. His oxygen is 100% on room air, he does not appear air hungry and is speaking in full sentences. At this point, I feel that he is safe for discharge and he will follow-up with primary care within the next 48 hours. He was given strict return precautions. All his questions and concerns were addressed and he is in agreement this plan. HPI General Mode of arrival: ambulatory . Date/Time Provider Initiated Documentation: 11/29/19 09:20 . Limitations to Documentation: no limitations . Information obtained by: patient and RN notes reviewed . History of Present Illness 69 year old M presents to the emergency department with the chief complaint of shortness of breath, cough, described as moderate and similar to prior episodes, and is localized to the chest. Patient started experiencing this week(s) (2+ weeks ago) and it has been constant. No relieving factors improve symptom(s), No exacerbating factors reported . Patient notes no other symptoms., cough and shortness of breath; denies chest pain, fever/chills, headaches, loss of appetite, nausea/vomiting, rash and weakness. Patient did receive the following treatments prior to arrival, other (course of doxycycline, currently on augmentin) Related Data Home Medications Medication Instructions Recorded Confirmed aspirin [Aspir-81] 81 mg PO DAILY 04/25/14 11/29/19 rosuvastatin [Crestor] 40 mg PO QPM 04/25/14 11/29/19 Incruse Ellipta 1 puff IN PRN PRN 08/21/17 11/29/19 Stiolto Respimat 2 puff INHALATION DAILY 07/03/18 11/29/19 acetaminophen [Acetaminophen Extra 500 mg PO QID PRN 07/03/18 11/29/19 Strength] ipratropium-albuterol 3 ml UPD Q6H PRN PRN #180 ml 12/02/18 11/29/19 pantoprazole 40 mg PO Q24H #30 tab 12/02/18 11/29/19 lidocaine 1 patch TP DAILY #15 each 06/29/19 11/29/19 omeprazole 40 mg PO DAILY #20 cap 06/29/19 11/29/19 albuterol sulfate [ProAir HFA] 2 puff INHALATION .4-6 HOURS PRN 11/29/19 11/29/19 amoxicillin-pot clavulanate 1 tab PO BID 11/29/19 11/29/19 azithromycin See Rx Instructions .ROUTE 11/29/19 .COMPLEX #6 tab fluticasone propionate [Flonase 1 spray INTRANASAL BID 11/29/19 11/29/19 Allergy Relief] prednisone 20 mg PO DAILY 11/29/19 11/29/19 ranitidine HCl 150 mg PO DAILY 11/29/19 11/29/19 Previous Rx's Medication Instructions Recorded ipratropium-albuterol 3 ml UPD Q6H PRN PRN #180 ml 12/02/18 pantoprazole 40 mg PO Q24H #30 tab 12/02/18 lidocaine 1 patch TP DAILY #15 each 06/29/19 omeprazole 40 mg PO DAILY #20 cap 06/29/19 azithromycin See Rx Instructions .ROUTE 11/29/19 .COMPLEX #6 tab Allergies Allergy/AdvReac Type Severity Reaction Status Date / Time No Known Allergies Allergy Unverified 12/06/18 07:23 General BRYAN: 3 Review of Systems Constitutional Constitutional: Reports as per HPI, Denies chills, Denies fatigue, Denies fever(s), Denies headache(s) and Denies poor appetite Eyes Eyes: Reports as per HPI, Denies eye discharge and Denies irritation ENT Ears, Nose, Mouth, and Throat: Reports as per HPI and Denies headache(s) Cardiovascular Cardiovascular: Reports as per HPI, Denies chest pain, Denies chest pain at rest, Denies chest pain with activity, Denies lightheadedness, Reports dyspnea (SOB is constant, no change with exertion), Denies dyspnea on exertion, Denies orthopnea and Denies paroxysmal nocturnal dyspnea Respiratory Respiratory: Reports as per HPI, Reports dyspnea (SOB is constant, no change with exertion), Denies dyspnea on exertion and Denies stridor Gastrointestinal Gastrointestinal: Reports as per HPI, Denies abdominal pain, Denies change in bowel habits, Denies nausea and Denies vomiting Integumentary/Breasts Skin/Breast: Reports as per HPI and Denies rash Neurologic Neurologic: Reports as per HPI and Denies headache(s) Endocrine Endocrine: Denies fatigue [facility] Medical History Abdominal aortic aneurysm (AAA) (Chronic) COPD (chronic obstructive pulmonary disease) (Chronic) Hyperlipidemia (Chronic) Lung cancer, upper lobe (Resolved) Status post left lobectomy with no other treatment and no evidence of recurrence Surgical History History of surgical procedure (Resolved) multiple vascular procedures/bypass grafts BLE S/P AAA repair (Resolved) S/P lobectomy of lung (Resolved) Social History Smoking/Tobacco Use Status: Current-Occasional Tobacco Type: cigarettes Alcohol Intake: never Drug use: Never Substance use type: does not use Do you feel safe at home: Yes Do you feel safe in your relationship?: Yes Exam Const General: cooperative, comfortable, no acute distress, well developed, well groomed and ill appearing (patient has poor skin color, consistent with long hx of smoking) chronically Nutritional Appearance: cachectic Orientation: alert and awake [facility] Head: normal to inspection, normocephalic and atraumatic Ears: hearing grossly normal bilaterally, external ears normal and TM's normal bilaterally General nose exam: external nose normal and nares normal Face and sinus: normal facial exam, sinuses nontender and face symmetric Mouth: oral mucosae normal, lip normal, tongue normal, oropharynx normal and mucous membranes dry (dry) Teeth and gingiva: dentition normal Throat: posterior oropharynx normal, tonsils normal and uvula midline Eyes General: appearance normal, both eyes and all related structures Neck Neck: normal visual inspection, full ROM, no lymphadenopathy and no meningeal signs Chest Chest: normal inspection of the chest Resp Effort & Inspection: normal respiratory effort, able to speak in complete sentences, no cough and no respiratory distress Auscultation: no rales, no rhonchi and wheezes expiratory wheezes and scattered wheezes Cardio Rate: regular rate Rhythm: regular rhythm Heart Sounds: S1 normal and S2 normal Skin General skin exam: no rashes or lesions noted Neuro General: patient alert and patient awake Cognition: normal cognition Speech: speech normal Gait: normal gait Psych Appearance: grossly normal and well kempt Mental Status: mental status grossly normal Speech and Movement: speech and movement normal
[2019-11-29 09:24] VITALS: BP 123/69; PULSE 93; RESP 20; TEMP 36.4; O2SAT 100
--- NOTE | 2019-11-29 09:45 | DI.RAD_ITS ---
EXAM: XR PORTABLE CHEST AP CLINICAL HISTORY: SOB TECHNIQUE: 2D digital imaging was performed. COMPARISON: XR CHEST 2V PA LATERAL from 06/25/2019 FINDINGS: MEDIASTINUM: The postsurgical changes in the left hemithorax appear stable. HEART: Normal. PULMONARY VASCULATURE: Normal. LUNGS: No focal consolidating infiltrates are present. PLEURAL SPACE: No pleural effusion or pneumothorax. BONE:Age-appropriate degenerative changes are present. OTHER FINDINGS:Surgical clips are seen in the left hemithorax. IMPRESSION: Stable appearance of the chest. No definite acute pulmonary process. DATA REPOSITORY: RADIATION DOSE DELIVERED:
[2019-11-29] MEDS: Normal Saline Flush 10 ML SYR IVP (10:00)
[2019-11-29 10:24] VITALS: RESP 18
[2019-11-29 10:34] LABS: Abs Immature Grans 0.04 k/cumm (0.0-0.09); Absolute Basophil Count 0.02 k/cumm (0.0-0.2); Absolute Eosinophil Count 0.28 k/cumm (0.0-0.7); Absolute Lymphocyte Count 1.13 k/cumm (1.2-3.4); Absolute Monocyte Count 1.14 k/cumm (0.11-0.7); Absolute Neutrophil Count 7.32 k/cumm (1.2-6.7); Basophils % 0.2; Eosinophils % 2.8; HCT 43.8 % (40.0-50.0); HGB 14.9 g/dL (13.5-17.5); Immature Grans % 0.4 %; Lymphocytes % 11.4; Mean Corpuscular Hemoglobin 31.8 pg (27.0-33.0); Mean Corpuscular Volume 93.4 fL (80-95); Mean Platelet Volume 9.7 fL (8.0-11.0); Monocytes % 11.5; Neutrophils % 73.7; Platelet Count 163 x1000/uL (130-400); RBC 4.69 m/cumm (4.50-6.00); RBC Distribution Width 13.6 % (11.8-14.1); White Blood Cell Count 9.93 k/cumm (4.4-10.8)
--- NOTE | 2019-11-29 10:34 | DI.VRAD_ITS ---
PROCEDURE INFORMATION: Exam: XR Chest, 1 View Exam date and time: 11/29/2019 10:09 AM Age: 69 years old Clinical indication: Shortness of breath and other: SOB; Additional info: SOB x 1wk plus per PT TECHNIQUE: Imaging protocol: XR of the chest Views: 1 view. COMPARISON: CR XR CHEST 2V PA LATERAL 06/25/2019 12:22 AM FINDINGS: Lungs: Hyperexpanded lung duenas consistent with COPD Opacity in the left upper lobe is most likely represents scar Patchy opacities in the bases may represent minimal atelectasis or pneumonia . Pleural space: Unremarkable. No pleural effusion. No pneumothorax. Heart/Mediastinum: Surgical clips in the left hilum Diaphragm: Elevated left hemidiaphragm Bones/joints: Healed left rib fractures IMPRESSION: Patchy opacities in the bases may represent minimal atelectasis or pneumonia . Dictated and Authenticated by: Radha Wisdom MD. Ordering:JAZMIN Morillo MD
[2019-11-29 10:48] LABS: NT-proBNP 137 pg/mL (<300)
[2019-11-29 11:02] LABS: ALT 26 U/L (16-63); AST 12 U/L (15-37); Albumin 3.5 g/dL (3.4-5.0); Alkaline Phosphatase 102 U/L (46-116); Anion Gap 9.8 mmol/L (3-11); BUN 14 mg/dL (7-18); Bilirubin, Total 0.4 mg/dL (0.2-1.0); CO2 28.2 mmol/L (21.0-32.0); CREATININE 1.27 mg/dL (0.70-1.30); Calcium 8.8 mg/dL (8.5-10.1); Chloride 103 mmol/L (98-107); Estimated GFR 56.57 (mL/min/1.73m2); Glucose 82 mg/dL (74-106); Magnesium 2.2 mg/dL (1.8-2.4); Potassium 4.3 mmol/L (3.5-5.1); Sodium 141 mmol/L (136-145); Total Protein 6.9 g/dL (6.4-8.2)
[2019-11-29 11:03] LABS: Troponin I < 0.05 ng/Ml (<0.06)
--- NOTE | 2019-11-29 11:15 | DI.CT_ITS ---
EXAM: CT CHEST PE CTA CLINICAL HISTORY: SOB. TECHNIQUE: Imaging Protocol: Axial CT angiography was performed with multi-slice acquisition and mu lti-planar and/or 3D reconstructions. CONTRAST MATERIAL: Intravenous: Omnipaque 350 Contrast volume:61 mL COMPARISON: CT CHEST PE CTA from 11/28/2018 FINDINGS: Pulmonary Arteries: No evidence of filling defect to suggest pulmonary emboli. Tracheobronchial tree: Patent where visualized. Mediastinum and Danielle: No dominant adenopathy or fluid collection. Pulmonary parenchyma: The patient is status post left lobectomy. Centrilobular emphysematous changes are present in the lungs. Mild opacities are seen in anterior and upper aspect of the left lung. T his appears slightly improved compared to the prior examination. Dependent atelectatic changes are s een in the lung bases. Pleura: No effusion or pneumothorax. Heart: The heart is not dilated. Moderate coronary artery calcifications are present. No pericardial effusion. Aorta: Thoracic aorta non-dilated. No evidence of thoracic aortic dissection. Upper abdomen: Cholelithiasis. Bones: Degenerative changes are present. Soft tissues: There is a stable well-circumscribed ovoid hypodense subcutaneous lesion in the left ch est wall. IMPRESSION: 1. No evidence of pulmonary embolism, thoracic aortic dissection or aneurysm. 2. Postsurgical changes of a prior left lobectomy. 3. Opacity seen in the anterior and superior aspect of the left lung. This may represent atelectasis or pneumonia. DATA REPOSITORY: All CT scans at this facility are submitted to the National Radiology Data Registry (NRDR) Dose Index Registry (DIR) with the [employer] ([employer]). RADIATION OPTIMIZATION: All CT scans at this facility use at least one of these dose optimization te chniques: automated exposure control; mA and/or kV adjustment per patient size (includes targeted exa ms where dose is matched to clinical indication); or iterative reconstruction.
[2019-11-29] MEDS: Normal Saline 1,000 ML 1000 ML IV (11:25)
[2019-11-29] MEDS: Omnipaque 350 MG/ML 50 ML BTL 100 ML IV (11:48)
--- NOTE | 2019-11-29 12:15 | DI.VRAD_ITS ---
PROCEDURE INFORMATION: Exam: CT Angiography Chest With Contrast Exam date and time: 11/29/2019 11:47 AM Age: 69 years old Clinical indication: Shortness of breath; Prior surgery; Surgery date: 6+ months; Surgery type: Lt lung resection; Patient HX: SOB TECHNIQUE: Imaging protocol: Computed tomographic angiography of the chest with intravenous contrast. 3D rendering: MIP and/or 3D reconstructed images were created by the technologist. Radiation optimization: All CT scans at this facility use at least one of these dose optimization techniques: automated exposure control; mA and/or kV adjustment per patient size (includes targeted exams where dose is matched to clinical indication); or iterative reconstruction. Contrast material: OMNIPAQUE 350; Contrast volume: 61 ml; Contrast route: IV; COMPARISON: CT CHEST PE CTA 11/28/2018 4:11 PM FINDINGS: Pulmonary arteries: Normal. No pulmonary emboli. Aorta: Unremarkable. No aortic aneurysm. No aortic dissection. Lungs: Surgical clips in the medial left upper lobe consistent with prior lobectomy. Mild opacities in the upper lobes and lingula may represent minimal atelectasis pneumonia . They have decreased compared to the prior study. Pleural space: Unremarkable. No pneumothorax. No pleural effusion. Heart: Unremarkable. No cardiomegaly. No pericardial effusion. Gallbladder and bile ducts: Gallstone in the gallbladder Lymph nodes: Unremarkable. No enlarged lymph nodes. Bones/joints: Unremarkable. No acute fracture. Soft tissues: Unremarkable. IMPRESSION: 1. Surgical clips in the medial left upper lobe consistent with prior lobectomy. 2. Mild opacities in the upper lobes and lingula may represent minimal atelectasis pneumonia . They have decreased compared to the prior study. Dictated and Authenticated by: Radha Wisdom MD. Ordering:JAZMIN Morillo MD
[2019-11-29 12:50] VITALS: BP 115/69; PULSE 76; RESP 16; TEMP 36.7; O2SAT 96
== END 2019-11-29 12:51 | disposition home or self-care (01) ==
PROVIDERS: Emergency Provider Physician Assistant; PCP Internal Medicine
DX: R06.09 Other forms of dyspnea (principal); J44.0 Chronic obstructive pulmonary disease with (acute) lower respiratory infection; J18.9 Pneumonia, unspecified organism
CPT/HCPCS: 36415; 71275; 80053; 93005; 96360; 96361; 99284; 71045; 83735; 83880; 84484; 85025; 93010; Q9967

== ENCOUNTER 2020-03-19 17:57 | Emergency (ER) | payer MEDICARE, SELFPAY ==
[2020-03-19 18:04] VITALS: BP 145/70; PULSE 96; RESP 14; TEMP 36.7; O2SAT 96
--- NOTE | 2020-03-19 18:48 | W.ED.GENAD ---
Discharge Plan Disposition Patient Disposition: HOME Condition: Stable Discharge Details Chief Complaint: EyeProblem Clinical Impression: Conjunctivitis Primary Care Provider: Rylan Page ED Provider: Margy Atkinson Home Meds and New Rx's Prescriptions: Continued aspirin [Aspir-81] 81 MG tablet,delayed release (DR/EC) 81 mg PO DAILY RF: 0 rosuvastatin [Crestor] 40 MG tablet 40 mg PO QPM RF: 0 Incruse Ellipta 1 PUFF blister with device 1 puff IN PRN PRNRF: 0 fluticasone propionate [Flonase Allergy Relief] 50 mcg/actuation [place],Suspension 1 spray INTRANASAL BID RF: 0 albuterol sulfate [ProAir HFA] 90 mcg/actuation Hfa Aerosol Inhaler 2 puff INHALATION .4-6 HOURS PRNRF: 0 Stiolto Respimat 2.5-2.5 mcg/actuation Mist 2 puff Inhalation DAILY RF: 0 ipratropium-albuterol 0.5 mg-3 mg(2.5 mg base)/3 mL Solution For Nebulization 3 ml UPD Q6H PRN PRN (Reason: shortness of breath or wheezing) Qty: 180 RF: 0 Discharge Instructions Instructions: Conjunctivitis (ED) Additional Instructions: Apply half-inch ribbon of erythromycin ointment 4 times daily for the next 5 days. You can also start applying the ointment in the left eye if you develop any similar symptoms. Be sure to follow proper handwashing to prevent spread of conjunctivitis. Follow-up with your primary care doctor in 1 week. Return to the emergency department with any worsening or new concerning symptoms. Discharge Data Discharge Physician: Margy Atkinson Medical Decision Making 70-year-old male presents with right eye irritation, tearing, itching, yellow discharge and discomfort for the past 3 days. Denies any known injury. Does not wear contacts. Denies blurry vision. Right eye appears injected with tearing and yellow discharge noted. Skin surrounding right eye appears irritated, mildly erythematous but does not appear consistent with cellulitis. No pain with EOMI. History and presentation not consistent with periorbital or orbital cellulitis. Will treat for conjunctivitis. Patient also states he feels he has some irritation developing in the left eye but this appeared normal to inspection. Erythromycin ointment applied here. He was advised to apply as directed and start in the left eye if indicated. Advised to follow up with the primary care doctor for re-evaluation. Usual and customary return precautions given prior to discharge. HPI General Mode of arrival: ambulatory. Date/Time Provider Initiated Documentation: 03/19/20 18:08. Limitations to Documentation: no limitations. Information obtained by: patient. HPI Narrative: Patient is a 70-year-old male presents with right eye irritation, itching, tearing and yellow discharge for the past 3 days. Patient denies any known injury to his eye. He does not wear contacts or glasses. He denies any blurry vision. He states he feels he is developing some irritation now in his left eye. He denies any headache or dizziness. Related Data Home Medications Medication Instructions Recorded Confirmed aspirin [Aspir-81] 81 mg PO DAILY 04/25/14 03/19/20 rosuvastatin [Crestor] 40 mg PO QPM 04/25/14 03/19/20 Incruse Ellipta 1 puff IN PRN PRN 08/21/17 03/19/20 Stiolto Respimat 2 puff INHALATION DAILY 07/03/18 03/19/20 ipratropium-albuterol 3 ml UPD Q6H PRN PRN #180 ml 12/02/18 03/19/20 albuterol sulfate [ProAir HFA] 2 puff INHALATION .4-6 HOURS PRN 11/29/19 03/19/20 fluticasone propionate [Flonase 1 spray INTRANASAL BID 11/29/19 03/19/20 Allergy Relief] Previous Rx's Medication Instructions Recorded ipratropium-albuterol 3 ml UPD Q6H PRN PRN #180 ml 12/02/18 Allergies Allergy/AdvReac Type Severity Reaction Status Date / Time No Known Allergies Allergy Unverified 03/19/20 18:08 General Stated Complaint: EyeProblem BRYAN: 4 Review of Systems All systems reviewed & are unremarkable except as noted in HPI and below Constitutional Constitutional: Reports as per HPI, Denies chills and Denies fever(s) Eyes Eyes: Denies blurry vision, Reports eye discharge (Yellow), Reports irritation and Reports itchy eyes ENT Ears, Nose, Mouth, and Throat: Denies dizziness, Denies sore throat and Denies throat swelling Cardiovascular Cardiovascular: Denies chest pain and Denies dyspnea Respiratory Respiratory: Denies cough and Denies dyspnea Gastrointestinal Gastrointestinal: Denies abdominal pain, Denies diarrhea and Denies vomiting Genitourinary Genitourinary: Denies hematuria and Denies dysuria Musculoskeletal Musculoskeletal: Denies back pain and Denies numbness Integumentary/Breasts Skin/Breast: Denies lesions and Denies rash Neurologic Neurologic: Denies dizziness, Denies localized weakness and Denies numbness Allergic/Immunologic Allergic/Immunologic: Reports itchy eyes and Denies throat swelling [facility] Social History Smoking/Tobacco Use Status: Current-Occasional Tobacco Type: cigarettes Alcohol Intake: never Drug use: Never Substance use type: does not use Do you feel safe at home: Yes Do you feel safe in your relationship?: Yes Exam Const General: cooperative, healthy appearing and no acute distress HENMT Head: normal to inspection Mouth: oral mucosae normal Eyes Eyelids: eyelid abnormality right upper eyelid erythema and right lower eyelid erythema Conjunctivae: conjunctival abnormality right conjunctival injection diffuse and discharge purulent Pupils: PERRL EOM: EOM intact bilaterally Neck Neck: normal visual inspection Resp Effort & Inspection: normal respiratory effort and able to speak in complete sentences Cardio Rate: regular rate Skin General skin exam: no rashes or lesions noted Neuro General: patient alert, patient awake and patient oriented x3 Motor: muscle tone normal throughout Extrem General: normal to inspection and full ROM Psych Appearance: grossly normal Affect: normal affect Course Vital Signs Vital signs: Vital Signs Temperature 98.1 F 03/19/20 18:04 Pulse 96 H 03/19/20 18:04 Respiratory Rate 14 03/19/20 18:04 Blood Pressure 145/70 H 03/19/20 18:04 Pulse Oximetry 96 03/19/20 18:04 Temperature 98.1 F 03/19/20 18:04 Pulse 96 H 03/19/20 18:04 Respiratory Rate 14 03/19/20 18:04 Respiratory Effort Non-Labored 03/19/20 18:06 Blood Pressure 145/70 H 03/19/20 18:04 Blood Pressure Position Sitting 03/19/20 18:04 Pulse Oximetry 96 03/19/20 18:04 Oxygen Delivery Method Room Air 03/19/20 18:04 Oxygen Flow Rate 0 03/19/20 18:04 Pain Level 4 03/19/20 18:04
[2020-03-19] MEDS: Erythromycin Ophth Oint 3.5 GM TUBE OU (18:55)
[2020-03-19 19:02] VITALS: BP 145/70; PULSE 96; RESP 14; TEMP 36.7; O2SAT 96
== END 2020-03-19 19:05 | disposition home or self-care (01) ==
PROVIDERS: Emergency Provider Physician Assistant; PCP Internal Medicine
DX: H10.31 Unspecified acute conjunctivitis, right eye (principal)
CPT/HCPCS: 99283

== ENCOUNTER 2020-05-30 13:23 | Emergency (ER) | payer MEDICARE, SELFPAY ==
[2020-05-30] VITALS (31 sets, daily range): BP systolic 111–133; BP diastolic 67–70; PULSE 62–95; RESP 16–34; TEMP 36.8; O2SAT 93–97
--- NOTE | 2020-05-30 13:29 | ED.GENADUL_ITS ---
Discharge Plan Disposition Patient Disposition: HOME Condition: Stable Discharge Details Clinical Impression: Dyspnea Primary Care Provider: Rylan Page ED Provider: Gi Collier Home Meds and New Rx's Prescriptions: New oxycodone 5 mg tablet 5 mg PO Q6H PRN (Reason: pain) Qty: 8 RF: 0 Continued aspirin [Aspir-81] 81 MG tablet,delayed release (DR/EC) 81 mg PO DAILY RF: 0 rosuvastatin [Crestor] 40 MG tablet 40 mg PO QPM RF: 0 Incruse Ellipta 1 PUFF blister with device 1 puff IN PRN PRNRF: 0 fluticasone propionate [Flonase Allergy Relief] 50 mcg/actuation [place],Suspension 1 spray INTRANASAL BID RF: 0 albuterol sulfate [ProAir HFA] 90 mcg/actuation Hfa Aerosol Inhaler 2 puff INHALATION .4-6 HOURS PRNRF: 0 acetaminophen 500 mg Tablet 1,000 mg PO PRN PRNRF: 0 oxycodone 5 mg tablet 5 mg PO Q6H PRN PRNRF: 0 Eliquis 5 mg tablet 5 mg PO BID RF: 0 Stiolto Respimat 2.5-2.5 mcg/actuation Mist 2 puff Inhalation DAILY RF: 0 ipratropium-albuterol 0.5 mg-3 mg(2.5 mg base)/3 mL Solution For Nebulization 3 ml UPD Q6H PRN PRN (Reason: shortness of breath or wheezing) Qty: 180 RF: 0 Discharge Instructions Instructions: Dyspnea (ED) Additional Instructions: Follow up with primary care provider in 3-5 days. Return to ED sooner if any worsening or concerns. Increase oral fluids. Keep your previously scheduled appointment for June [address] Patel. Take medications as prescribed. Referrals: Rylan Page MD [Primary Care Provider] - Discharge Data Discharge Date/Time-TO BE ENTERED AT DEPARTURE: 05/30/20 18:04 Medical Decision Making <GEORGINA Hartley - Last Filed: 05/31/20 17:24> Patient is a pleasant 70-year-old male presented with chief complaint of general malaise. He reports over the past week he has had increased fatigue, diminished appetite and general feeling of unwell. He reports he has chronic pain in his left leg. Patient had surgery thrombectomy in the left leg beginning of last month. He reports the pain in the left leg has been unchanged. Patient states that he has poor perfusion to this leg and is discussing potential amputation with his vascular team. Past medical history this patient includes hyperlipidemia, AAA repair. Patient is a vasculopath and has had several v ascular surgical interventions. However, since that he has had multiple to this left lower extremity with poor results. His recent stay, t his as a patient went to the OR twice and that he continues to have poor perfusion with continued total occlusion of the graft. In the postop period, patient did have strokelike activity with seizure, confusion, agitation and aphasia. CTA of the head was un remarkable. There was concern for alcohol withdrawal seizure at that time patient was placed on CIWA protocol. Patient subsequently had an uneventful discharge.. Patient reports that he has upcoming appointment for reevaluation and discuss potential amputation of left lower extremity. On exam, patient appears chronically unwell. His lungs sound clear, normal cardiac exam. He does have a dopplerable posterior tibial pulse this is quite faint. The left foot is slightly more red than the contralateral side with a slow capillary refill. This appears chronic. He does not have any edema. P atient's not endorsing increased pain. Is not consistent with infection. He is satisfactory for surgery also appear unremarkable. He does appear slightly dry. Labs reviewed. No significant abnormality. He is mildly anemic with hemoglobin 13.2 but he has been anemic historically. He has normal lactate, no significant amylase and CMP. Troponin is normal, CK is within normal limits. The patient has had increased shortness of breath along with his malaise, I am concerned for potential PE and will obtain CT for PE protocol. At the end of my shift, care transitioned to Chandrika Collier NP with imaging pending. Also have sent a UA as well as blood culturesAs there is concern for potential infection causing his general malaise. Base with vascular surgical team would be appropriate once imaging has returned. <Gi Collier - Last Filed: 05/30/20 21:32> Care assumed from off going provider GEORGINA You pending CT chest results rule out PE. Informed by staff scientist that patient is taking Eliquis 5 mg tablets twice a day which was prescribed to him on May 04 from [facility]. COMPARISON: CT CHEST PE CTA 11/29/2019 11:41 AM FINDINGS: Pulmonary arteries: Normal. No pulmonary emboli. Aorta: Unremarkable. No aortic aneurysm. No aortic dissection. Lungs: The scattered areas of pulmonary fibrosis and scarring in both lungs, most prominent in the left apex. Superimposed patchy infiltrates are not excluded. Pleural space: Unremarkable. No pneumothorax. No pleural effusion. Heart: Unremarkable. No cardiomegaly. No pericardial effusion. Lymph nodes: Unremarkable. No enlarged lymph nodes. Gallbladder and bile ducts: Gallstone without evidence of acute cholecystitis. Bones/joints: Unremarkable. No acute fracture. Soft tissues: Vascular bypass graft in the left lateral chest wall may not be patent. 3 cm dermal cyst in the left breast. Other findings: Partial left pneumonectomy. Atherosclerosis. IMPRESSION: The scattered areas of pulmonary fibrosis and scarring in both lungs, most prominent in the left apex. Superimposed patchy infiltrates are not excluded. No pneumothorax. Vascular bypass graft in the left lateral chest wall may not be patent. Correlate with dedicated exam if clinically relevant. 1642: Call [facility] for vascular consult regarding CT results. Spoke with Dr. 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 His next appointment is with Dr. Cash at 11:30 AM on June 06, 2020. Will discuss results and follow-up care with patient. Plan is to discharge home with strict return instructions. 1702: Second serial troponin is pending at this time is this lab result is with in normal limits will discharge home with pain control discussed home care with patient, verbalized understanding. HPI <GEORGINA Hartley - Last Filed: 05/31/20 17:24> General Mode of arrival: ambulatory . Date/Time Provider Initiated Documentation: 05/30/20 13:29 . Limitations to Documentation: no limitations . Information obtained by: patient and RN notes reviewed . History of Present Illness 70 year old M presents to the emergency department with the chief complaint of generalized feeling unwell, fatigued, SOB, described as moderate, with intensity rated at 5 (left leg). Quality is described as aching, and is localized to the left and lower extremity. Patient reports no radiation. Patient started experiencing this week(s) (malaise began one week ago. Chronic left leg pain) and it has been constant. No relieving factors improve symptom(s), No exacerbating factors reported . Patient notes cough (chronic, unchanged, white sputum), loss of appetite and shortness of breath; denies chest pain, diaphoresis, fever/chills, headaches, nausea/vomiting, rash and weakness. Patient did receive the following treatments prior to arrival, none Related Data Home Medications Medication Instructions Recorded Confirmed aspirin [Aspir-81] 81 mg PO DAILY 04/25/14 05/30/20 rosuvastatin [Crestor] 40 mg PO QPM 04/25/14 05/30/20 Incruse Ellipta 1 puff IN PRN PRN 08/21/17 05/30/20 Stiolto Respimat 2 puff INHALATION DAILY 07/03/18 05/30/20 ipratropium-albuterol 3 ml UPD Q6H PRN PRN #180 ml 12/02/18 05/30/20 albuterol sulfate [ProAir HFA] 2 puff INHALATION .4-6 HOURS PRN 11/29/19 05/30/20 fluticasone propionate [Flonase 1 spray INTRANASAL BID 11/29/19 03/19/20 Allergy Relief] Eliquis 5 mg PO BID 05/30/20 05/30/20 acetaminophen 1,000 mg PO PRN PRN 05/30/20 05/30/20 oxycodone 5 mg PO Q6H PRN #8 tab 05/30/20 oxycodone 5 mg PO Q6H PRN PRN 05/30/20 05/30/20 Previous Rx's Medication Instructions Recorded ipratropium-albuterol 3 ml UPD Q6H PRN PRN #180 ml 12/02/18 oxycodone 5 mg PO Q6H PRN #8 tab 05/30/20 Allergies Allergy/AdvReac Type Severity Reaction Status Date / Time No Known Allergies Allergy Unverified 05/30/20 16:09 General BRYAN: 4 Review of Systems <GEORGINA Hartley - Last Filed: 05/31/20 17:24> Constitutional Constitutional: Reports as per HPI, Denies chills, Denies fever(s), Denies h eadache(s), Denies lethargy and Denies poor appetite Eyes Eyes: Denies change in vision ENT Ears, Nose, Mouth, and Throat: Denies dizziness and Denies headache(s) Cardiovascular Cardiovascular: Reports as per HPI, Denies chest pain, Denies chest pain at rest, Denies chest pain with activity, Denies edema, Denies radiating jaw, neck or arm pain, Reports dyspnea and Reports dyspnea on exertion Respiratory Respiratory: Reports as per HPI, Denies chest congestion, Denies cough, Denies pain on inspiration, Denies pain with cough, Reports dyspnea, Reports dyspnea on exertion and Denies wheezing Gastrointestinal Gastrointestinal: Reports as per HPI, Denies abdominal pain, Denies diarrhea, Denies nausea and Denies vomiting Genitourinary Genitourinary: Denies system reviewed and no additional complaints, except as documented (denies change in urinary habits) Musculoskeletal Musculoskeletal: Reports as per HPI and Denies back pain Integumentary/Breasts Skin/Breast: Reports as per HPI and Denies rash Neurologic Neurologic: Reports as per HPI, Denies dizziness and Denies headache(s) Allergic/Immunologic Allergic/Immunologic: Denies wheezing PFSH <GEORGINA Hartley - Last Filed: 05/31/20 17:24> Medical History (Updated 05/30/20 @ 17:55 by Gi Collier) Abdominal aortic aneurysm (AAA) COPD (chronic obstructive pulmonary disease) Hyperlipidemia Lung cancer, upper lobe Status post left lobectomy with no other treatment and no evidence of recurrence Surgical History History of surgical procedure multiple vascular procedures/bypass grafts BLE S/P AAA repair S/P lobectomy of lung Social History Smoking/Tobacco Use Status: Former Tobacco Use Quit Date: 05/16/20 Alcohol Intake: never Drug use: Never Substance use type: does not use Do you feel safe at home: Yes Do you feel safe in your relationship?: Yes Exam <GEORGINA Hartley - Last Filed: 05/31/20 17:24> Const General: cooperative, not healthy appearing, comfortable, no acute distress, well developed and ill appearing chronically Nutritional Appearance: average body habitus and well nourished Orientation: alert, awake and oriented x3 HENMT Head: normal to inspection Ears: hearing grossly normal bilaterally Mouth: moist mucous membranes Chest Chest: normal inspection of the chest, normal palpation of entire chest wall and no crepitus Resp Effort & Inspection: normal respiratory effort, able to speak in complete sentences and no respiratory distress Auscultation: clear to auscultation bilaterally, no rales, no rhonchi and no wheezes Cardio Rate: regular rate Rhythm: regular rhythm Heart Sounds: S1 normal and S2 normal GI Inspection: normal to inspection, no edema and non-distended Palpation: soft, no hepatosplenomegaly, not firm, no guarding, not rigid and nontender Auscultation: normal bowel sounds Back/Spine/Pelvis Back: no CVA tenderness Thoracic/Lumbar Spine: thoracic and lumbar spine normal to inspection Skin General skin exam: no rashes or lesions noted Neuro General: patient alert, patient awake and patient oriented x3 Cognition: normal cognition Speech: speech normal Gait: normal gait Extrem General: normal to inspection, capillary refill delayed (slow in left leg), no pedal edema and no calf tenderness Left lower extremity: full ROM, no joint enlargement and foot (posterior tibial found with doppler, faint, nonpalpable) Details: laceration (small crack without evidence of infection medial heel); abnormal to inspection (left foot is more pink than the contralateral), abnormal capillary refill (3 seconds) and no cyanosis Psych Appearance: grossly normal and well kempt Mental Status: mental status grossly normal Speech and Movement: speech and movement normal Sign Out <GEORGINA Hartley - Last Filed: 05/31/20 17:24> Sign Out Data: Sign Out Comment: Care transition to Chandrika Collier NP with CT for PE pending. Last updated by Yisel Jack PA at 05/30/20 16:05
[2020-05-30 13:54] LABS: Abs Immature Grans 0.03 10^3/uL (0.0-0.06); Absolute Basophil Count 0.06 10^3/uL (0.0-0.2); Absolute Eosinophil Count 0.25 10^3/uL (0.0-0.7); Absolute Lymphocyte Count 1.45 10^3/uL (1.2-3.4); Absolute Monocyte Count 0.75 10^3/uL (0.1-0.8); Absolute Neutrophil Count 3.74 10^3/uL (1.2-6.7); HCT 39.5 % (40.0-50.0); HGB 13.2 g/dL (13.5-17.5); Immature Grans % 0.5; Lymphocytes % 23.1; MCH 31.7 pg (27.0-33.0); MCHC 33.4 % (32.0-36.0); MPV 9.9 fL (8.0-11.0); Monocytes % 11.9; Neutrophils % 59.5; Nucleated RBC 0 %; Platelet Count 190 10^3/uL (130-400); RBC 4.16 10^6/uL (4.36-5.78); RDW 12.5 % (11.8-14.1); RDW-SD 43.5 fL; WBC 6.28 10^3/uL (4.4-10.8)
[2020-05-30 14:11] LABS: ALT 12 U/L (16-63); AST 13 U/L (15-37); Albumin 3.6 g/dL (3.4-5.0); Alkaline Phosphatase 94 U/L (46-116); Anion Gap 9.1 mmol/L (3-11); BUN 8 mg/dL (7-18); Bilirubin, Total 0.4 mg/dL (0.2-1.0); CO2 24.9 mmol/L (21.0-32.0); CREATININE 1.13 mg/dL (0.70-1.30); Chloride 103 mmol/L (98-107); Glucose 110 mg/dL (74-106); Potassium 3.6 mmol/L (3.5-5.1); Sodium 137 mmol/L (136-145); Total Protein 6.7 g/dL (6.4-8.2)
[2020-05-30 14:14] LABS: Troponin I < 0.05 ng/mL (<0.06)
--- NOTE | 2020-05-30 14:15 | RT.EKG_ITS ---
APPROVED REPORT Exam: Resting ECG Patient Location: E HR:71 bpm ECG Measurements Heart Rate 71 AXIS KS 193 P 73 QRSd 136 QRS 103 QT 408 T 24 QTc 443 Conclusion Sinus rhythm...normal P axis, V-rate 60- 99 Right bundle branch block...QRSd>120, terminal axis(90,270)
--- NOTE | 2020-05-30 14:45 | DI.CT_ITS ---
EXAM: CT CHEST PE CTA CLINICAL HISTORY: SOB, weakness TECHNIQUE: COMPARISON: No exams were available for comparison FINDINGS: CT angiography of the chest was performed with intravenous infusion 61 cc of Omnipaque 350. Images t hrough the cholelithiasis appearance of visualized portions, pancreas,, kidneys. Thoracic aorta major branch vessels are opacified. Descending thoracic aortic, 30. No aortic dissec tion. Prior left lobectomy noted. No evidence of pulmonary embolic disease. Pulmonary fibrotic areli nges and predominantly pleural based scarring in the apices. No focal consolidation. No pleural eff usion. No mediastinal hilar adenopathy. Left breast mass noted, 29 millimeters in diameter, near fl uid attenuation, correlation with ultrasound recommended. Grossly unchanged from November 2019. IMPRESSION: No evidence of pulmonary embolic disease. Cholelithiasis noted. Prior left lobectomy. Left breast mass, probable cyst, ultrasound examination recommended. RADIATION DOSE DELIVERED: 301.56mGy.cm Total DLP
[2020-05-30 15:01] LABS: Creatine Kinase 66 U/L (39-308)
[2020-05-30] MEDS: Omnipaque 350 MG/ML 100 ML BTL IJ (15:59)
[2020-05-30] MEDS: Normal Saline - Diluent 50 ML VIAL IV (15:59)
--- NOTE | 2020-05-30 16:27 | DI.VRAD_ITS ---
PROCEDURE INFORMATION: Exam: CT Angiography Chest With Contrast Exam date and time: 05/30/2020 3:58 PM Age: 70 years old Clinical indication: Cough and shortness of breath; Patient HX: Weakness and SOB five days TECHNIQUE: Imaging protocol: Computed tomographic angiography of the chest with intravenous contrast. 3D rendering (Not supervised by radiologist): MIP and/or 3D reconstructed images were created by the technologist. Contrast material: OMNI 350; Contrast volume: 61 ml; Contrast route: INTRAVENOUS (IV); COMPARISON: CT CHEST PE CTA 11/29/2019 11:41 AM FINDINGS: Pulmonary arteries: Normal. No pulmonary emboli. Aorta: Unremarkable. No aortic aneurysm. No aortic dissection. Lungs: The scattered areas of pulmonary fibrosis and scarring in both lungs, most prominent in the left apex. Superimposed patchy infiltrates are not excluded. Pleural space: Unremarkable. No pneumothorax. No pleural effusion. Heart: Unremarkable. No cardiomegaly. No pericardial effusion. Lymph nodes: Unremarkable. No enlarged lymph nodes. Gallbladder and bile ducts: Gallstone without evidence of acute cholecystitis. Bones/joints: Unremarkable. No acute fracture. Soft tissues: Vascular bypass graft in the left lateral chest wall may not be patent. 3 cm dermal cyst in the left breast. Other findings: Partial left pneumonectomy. Atherosclerosis. IMPRESSION: The scattered areas of pulmonary fibrosis and scarring in both lungs, most prominent in the left apex. Superimposed patchy infiltrates are not excluded. No pneumothorax. Vascular bypass graft in the left lateral chest wall may not be patent. Correlate with dedicated exam if clinically relevant. Dictated and Authenticated by: Radha Polanco MD. Ordering:JAZMIN Morillo MD
[2020-05-30 17:03] LABS: Bilirubin Negative (Negative); Blood Negative (Negative); Clarity Clear (Clear); Glucose Negative (Negative); Ketones Negative (Negative); Leukocyte Esterase Negative (Negative); Nitrite Negative (Negative); Urobilinogen 0.2 EU/dL (Up TO 0.2)
--- NOTE | 2020-05-30 17:15 | RT.EKG_ITS ---
APPROVED REPORT Exam: Resting ECG Patient Location: E HR:62 bpm ECG Measurements Heart Rate 62 AXIS LA 191 P -3 QRSd 139 QRS 95 QT 445 T 17 QTc 452 Conclusion Sinus rhythm...normal P axis, V-rate 60- 99 Right bundle branch block...QRSd>120, terminal axis(90,270). Sinus. RBBB. No change from previous. No STEMI.
[2020-05-30 17:50] LABS: Troponin I < 0.05 ng/mL (<0.06)
== END 2020-05-30 18:04 | disposition home or self-care (01) ==
PROVIDERS: Physician Assistant; Emergency Provider Registered Nurse Emergency; PCP Internal Medicine
DX: R06.00 Dyspnea, unspecified (principal); R53.81 Other malaise; M79.605 Pain in left leg; G89.29 Other chronic pain; T82.848A Pain due to vascular prosthetic devices, implants and grafts, initial encounter; Y83.2 Surgical operation with anastomosis, bypass or graft as the cause of abnormal reaction of the patient, or of later complication, without mention of misadventure at the time of the procedure; J44.9 Chronic obstructive pulmonary disease, unspecified; Z87.891 Personal history of nicotine dependence
CPT/HCPCS: 36415; 71275; 80053; 82550; 87040; 93005; 99285; 81003; 83605; 83735; 84484; 85025; 93010; J3490

== ENCOUNTER 2020-07-20 13:12 | Outpatient (REF) | payer MEDICARE, SELFPAY ==
[2020-07-21 15:08] LABS: SARS-CoV-2 RNA Not Detected (NotDetected); SARS-CoV-2 RNA Source Nasal/Nares
== END 2020-07-20 13:32 ==
LOC: LBN 13:12
PROVIDERS: PCP Internal Medicine; Visit Provider Internal Medicine
DX: Z11.59 Encounter for screening for other viral diseases (principal)
CPT/HCPCS: U0003

== ENCOUNTER 2020-07-23 12:59 | Emergency (ER) | payer MEDICARE, SELFPAY ==
[2020-07-23] VITALS (24 sets, daily range): BP systolic 103–113; BP diastolic 65–72; PULSE 92–104; RESP 22–39; TEMP 36.4–36.5; O2SAT 91–98
--- NOTE | 2020-07-23 13:00 | RT.EKG_ITS ---
APPROVED REPORT Exam: Resting ECG Patient Location: E HR:100 bpm ECG Measurements Heart Rate 100 AXIS SD 175 P 72 QRSd 139 QRS 131 QT 379 T -6 QTc 489 Conclusion Sinus tachycardia...rate> 99 Probable left atrial enlargement...P >50mS, <-0.10mV V1 RBBB and LPFB...QRSd >120mS, axis(90,210) I have reviewed and interpreted ECG and agree with software generated interpretation.
--- NOTE | 2020-07-23 13:09 | ED.GENADUL_ITS ---
Discharge Plan Disposition Patient Disposition: HOME Condition: Stable Discharge Details Clinical Impression: Hemoptysis, Pneumonia, Chronic anticoagulation Primary Care Provider: Rylan Page ED Provider: Margy Atkinson Home Meds and New Rx's Prescriptions: New amoxicillin-pot clavulanate [Augmentin] 875-125 mg tablet 1 tab PO BID 7 Days Qty: 14 RF: 0 doxycycline hyclate 100 mg tablet 100 mg PO BID 7 Days Qty: 14 RF: 0 Continued aspirin [Aspir-81] 81 MG tablet,delayed release (DR/EC) 81 mg PO DAILY RF: 0 rosuvastatin [Crestor] 40 MG tablet 40 mg PO QPM RF: 0 Incruse Ellipta 1 PUFF blister with device 1 puff IN PRN PRNRF: 0 fluticasone propionate [Flonase Allergy Relief] 50 mcg/actuation [place],Suspension 1 spray INTRANASAL BID RF: 0 albuterol sulfate [ProAir HFA] 90 mcg/actuation Hfa Aerosol Inhaler 2 puff INHALATION .4-6 HOURS PRNRF: 0 acetaminophen 500 mg Tablet 1,000 mg PO PRN PRNRF: 0 Eliquis 5 mg tablet 5 mg PO BID RF: 0 Stiolto Respimat 2.5-2.5 mcg/actuation Mist 2 puff Inhalation DAILY RF: 0 ipratropium-albuterol 0.5 mg-3 mg(2.5 mg base)/3 mL Solution For Nebulization 3 ml UPD Q6H PRN PRN (Reason: shortness of breath or wheezing) Qty: 180 RF: 0 Discharge Instructions Instructions: Hemoptysis (ED), Pneumonia (ED) Additional Instructions: Drink plenty of fluids and get plenty of rest. Take the antibiotics until finished. Use your inhalers that you have at home as needed and directed for shortness of breath or cough. Follow-up with your scheduled appointment with Dr. Page on Saturday. Return to the emergency department with any worsening or new concerning symptoms such as fever, persistent worsening of coughing of blood, shortness of breath or any other concerns. Discharge Data Discharge Date/Time-TO BE ENTERED AT DEPARTURE: 07/23/20 16:10 Discharge Physician: Margy Atkinson Medical Decision Making 70-year-old male with a history of chronic cough, lung cancer and lobectomy, AAA with repair, COPD, hyperlipidemia presents for brief episode of hemoptysis this morning. Denies any symptoms at present. He is afebrile and appears nontoxic. Diminished breath sounds at bases but otherwise no acute lung findings. EKG notes a rate of 100, sinus, right bundle branch block, left posterior fascicular block but no STEMI. Differential diagnosis includes pneumonia, PE, bronchitis, etc. History and presentation not consistent with ACS or dissection. Will check screening labs, CT chest. Labs reviewed. White blood cell count 11. Negative troponin. CT chest negative for PE but notes a right lower lobe pneumonia. Patient reassessed and he remains asymptomatic. Considering patient's comorbid ities and smoking history, will treat with antibiotics. He was given p.o. dose of antibiotics here as well as prescriptions. He has inhalers at home to use as needed. He has a follow-up appointment with his primary care doctor on Saturday. Usual and customary return precautions given prior to discharge. Medical Records Medical records reviewed: Yes I reviewed the patient's medical records. Imaging Data Radiologic Study: Radiologist's impression: CT CHEST PE CTA CLINICAL HISTORY: hemoptysis, on eliquis, r/o PE. TECHNIQUE: Imaging Protocol: Axial CT angiography was performed with multi- slice acquisition and multi-planar and/or 3D reconstructions. CONTRAST MATERIAL: Intravenous: Omnipaque 350 Contrast volume:structured data in ml COMPARISON: CT CT CHEST PE CTA from 11/29/[address] CHEST PE CTA from 05/30/2020 FINDINGS: CT angiography of the chest was performed with intravenous infusion of 58 cc of Omnipaque 350. There is a prior left lobectomy. There is an apparent vascular stent extending from the region of left subclavian along the subcutaneous tissues of the lateral chest wall. Images obtained through the upper abdomen show cholelithiasis and nonobstructing left renal calculi, probably arterial, and unremarkable appearance of visualized portions of liver, spleen, and pancreas. There is no evidence of pulmonary embolic disease. There are multiple new tree in bud opacities and consolidative opacities predominantly in the right lower lobe, suspicious for acute infectious process. Changes of scarring are noted bilaterally unchanged from prior CT of May 30.. Thoracic aorta shows areas of ectasia in its descending portion and shows heterogeneous opacification in its descending portion, unchanged from multiple prior CTs, question low-flow state, please correlate clinically. No gross dissection identified. No mediastinal or hilar adenopathy. IMPRESSION: No evidence of pulmonary embolic disease. Findings suspicious for acute infectious process predominantly involving right lower lobe. Appropriate follow-up studies requested. Lab Data Lab results reviewed: Yes I reviewed the patient's lab results. Labs: Laboratory Tests Range/Units 07/23/20 07/23/20 07/23/20 13:40 13:40 13:40 WBC (4.4-10.8) 10^3/uL 11.04 H RBC (4.36-5.78) 10^6/uL 4.58 Hgb (13.5-17.5) g/dL 14.0 Hct (40.0-50.0) % 43.1 MCV (80-95) fL 94.1 MCH (27.0-33.0) pg 30.6 MCHC (32.0-36.0) % 32.5 RDW (11.8-14.1) % 12.3 Plt Count (130-400) 10^3/uL 371 MPV (8.0-11.0) fL 9.1 Immature Gran % 0.4 Neutrophils % 73.6 Lymphocytes % 14.5 Monocytes % 8.6 Eosinophils % 2.1 Basophils % 0.8 Nucleated RBC % % 0 Absolute Neutrophils (1.2-6.7) 10^3/uL 8.13 H Absolute Lymphocytes (1.2-3.4) 10^3/uL 1.60 Absolute Monocytes (0.1-0.8) 10^3/uL 0.95 H Absolute Eosinophils (0.0-0.7) 10^3/uL 0.23 Absolute Basophils (0.0-0.2) 10^3/uL 0.09 PT (9.3-11.0) sec 11.7 H INR (0.9-1.1) 1.2 H APTT (21.0-27.5) sec 30.5 H Sodium (136-145) mmol/L 139 Potassium (3.5-5.1) mmol/L 3.8 Chloride (98-107) mmol/L 103 Carbon Dioxide (21.0-32.0) mmol/L 31.1 Anion Gap (3-11) mmol/L 4.9 BUN (7-18) mg/dL 9 Creatinine (0.70-1.30) mg/dL 1.30 Estimated GFR/1.73 m2 (mL/min/1.73m2) 54.90 Glucose (74-106) mg/dL 89 Calcium (8.5-10.1) mg/dL 8.8 Magnesium (1.8-2.4) mg/dL 2.2 Total Bilirubin (0.2-1.0) mg/dL 0.2 AST (15-37) U/L 10 L ALT (16-63) U/L 13 L Alkaline Phosphatase (46-116) U/L 113 Troponin I (<0.06) ng/mL < 0.05 Total Protein (6.4-8.2) g/dL 7.1 Albumin (3.4-5.0) g/dL 3.1 L ECG Data Attestation: I personally reviewed and interpreted this ECG (s) as follows: Interpretation: Rate of 100, sinus, right bundle branch block, left posterior fascicular block. No STEMI. HPI General Mode of arrival: ambulatory . Date/Time Provider Initiated Documentation: 07/23/20 13:00 . Limitations to Documentation: no limitations . Information obtained by: patient . HPI Narrative: Patient is a 70-year-old male with a history of lung cancer and lobectomy, abdominal aortic aneurysm with repair, COPD and hyperlipidemia who presents for a brief episode of hemoptysis t nereida. Patient states he has a chronic cough which is mainly clear mucus. He states he coughed twice today with approximately 2 tablespoons of bright red blood. He states it has since resolved. He states he came here because he was concerned about the cause. He denies any fever, chest pain, shortness of breath, nausea, vomiting, diarrhea, abdominal pain, dizziness, recent travel, recent known sick contacts, recent known exposure to coronavirus, recent antibiotics or recent hospital admissions. Related Data Home Medications Medication Instructions Recorded Confirmed aspirin [Aspir-81] 81 mg PO DAILY 04/25/14 07/23/20 rosuvastatin [Crestor] 40 mg PO QPM 04/25/14 07/23/20 Incruse Ellipta 1 puff IN PRN PRN 08/21/17 07/23/20 Stiolto Respimat 2 puff INHALATION DAILY 07/03/18 07/23/20 ipratropium-albuterol 3 ml UPD Q6H PRN PRN #180 ml 12/02/18 07/23/20 albuterol sulfate [ProAir HFA] 2 puff INHALATION .4-6 HOURS PRN 11/29/19 07/23/20 fluticasone propionate [Flonase 1 spray INTRANASAL BID 11/29/19 07/23/20 Allergy Relief] Eliquis 5 mg PO BID 05/30/20 07/23/20 acetaminophen 1,000 mg PO PRN PRN 05/30/20 07/23/20 amoxicillin-pot clavulanate 1 tab PO BID 7 Days #14 tab 07/23/20 [Augmentin] doxycycline hyclate 100 mg PO BID 7 Days #14 tab 07/23/20 Previous Rx's Medication Instructions Recorded ipratropium-albuterol 3 ml UPD Q6H PRN PRN #180 ml 12/02/18 amoxicillin-pot clavulanate 1 tab PO BID 7 Days #14 tab 07/23/20 [Augmentin] doxycycline hyclate 100 mg PO BID 7 Days #14 tab 07/23/20 Allergies Allergy/AdvReac Type Severity Reaction Status Date / Time No Known Allergies Allergy Unverified 07/23/20 13:09 General Stated Complaint: RespSymp BRYAN: 3 Review of Systems All systems reviewed & are unremarkable except as noted in HPI and below Constitutional Constitutional: Reports as per HPI, Denies chills and Denies fever(s) Eyes Eyes: Denies blurry vision ENT Ears, Nose, Mouth, and Throat: Denies dizziness, Denies sore throat and Denies throat swelling Cardiovascular Cardiovascular: Denies chest pain and Denies dyspnea Respiratory Respiratory: Denies cough, Reports hemoptysis and Denies dyspnea Gastrointestinal Gastrointestinal: Denies abdominal pain, Denies diarrhea and Denies vomiting Genitourinary Genitourinary: Denies hematuria and Denies dysuria Musculoskeletal Musculoskeletal: Denies back pain and Denies numbness Integumentary/Breasts Skin/Breast: Denies lesions and Denies rash Neurologic Neurologic: Denies dizziness, Denies localized weakness and Denies numbness Allergic/Immunologic Allergic/Immunologic: Denies throat swelling [facility] Medical History (Updated 07/23/20 @ 15:59 by Margy Atkinson DO) Abdominal aortic aneurysm (AAA) COPD (chronic obstructive pulmonary disease) Hyperlipidemia Lung cancer, upper lobe Status post left lobectomy with no other treatment and no evidence of recurrence Surgical History History of surgical procedure multiple vascular procedures/bypass grafts BLE S/P AAA repair S/P lobectomy of lung Social History Smoking/Tobacco Use Status: Current every day Tobacco Type: cigarettes Smoking risk assessment performed?: Yes Alcohol Intake: never Drug use: Never Substance use type: does not use Do you feel safe at home: Yes Do you feel safe in your relationship?: Yes Exam Const General: cooperative and no acute distress Orientation: alert, awake and oriented x3 HENMT Head: normal to inspection Face and sinus: normal facial exam Eyes General: appearance normal, both eyes and all related structures EOM: EOM intact bilaterally Neck Neck: normal visual inspection and No submandibular swelling Lymphatic: no lymphadenopathy noted Chest Chest: normal inspection of the chest and no tenderness Resp Effort & Inspection: normal respiratory effort and able to speak in complete sentences Auscultation: clear to auscultation bilaterally Cardio Rate: regular rate Rhythm: regular rhythm GI Inspection: normal to inspection Palpation: soft, not firm, not rigid and nontender Auscultation: normal bowel sounds Skin General skin exam: no rashes or lesions noted Neuro General: patient alert, patient awake and patient oriented x3 Cognition: normal cognition Speech: speech normal Motor: muscle tone normal throughout Sensory Exam: no sensory deficits noted Extrem General: capillary refill normal, no calf tenderness bilaterally and no edema Other: Left leg AKA. Right leg no edema. Psych Appearance: grossly normal Mental Status: mental status grossly normal Speech and Movement: speech and movement normal Affect: normal affect Course Vital Signs Vital signs: Vital Signs Temperature 97.7 F 07/23/20 13:04 Pulse 104 H 07/23/20 13:04 Respiratory Rate 24 07/23/20 13:04 Blood Pressure 112/71 07/23/20 13:04 Temperature 97.7 F 07/23/20 13:04 Pulse 104 H 07/23/20 13:04 Respiratory Rate 24 07/23/20 13:04 Respiratory Effort 07/23/20 13:07 Blood Pressure 112/71 07/23/20 13:04 Blood Pressure Position Sitting 07/23/20 13:04 Oxygen Delivery Method Room Air 07/23/20 13:04 Oxygen Flow Rate 0 07/23/20 13:04 Pain Level 0 07/23/20 13:04
--- NOTE | 2020-07-23 13:30 | DI.CT_ITS ---
EXAM: CT CHEST PE CTA CLINICAL HISTORY: hemoptysis, on eliquis, r/o PE. TECHNIQUE: Imaging Protocol: Axial CT angiography was performed with multi-slice acquisition and mu lti-planar and/or 3D reconstructions. CONTRAST MATERIAL: Intravenous: Omnipaque 350 Contrast volume:structured data in ml COMPARISON: CT CT CHEST PE CTA from 11/29/[address] CHEST PE CTA from 05/30/2020 FINDINGS: CT angiography of the chest was performed with intravenous infusion of 58 cc of Omnipaque 350. There is a prior left lobectomy. There is an apparent vascular stent extending from the region of le ft subclavian along the subcutaneous tissues of the lateral chest wall. Images obtained through the upper abdomen show cholelithiasis and nonobstructing left renal calculi, probably arterial, and unrem arkable appearance of visualized portions of liver, spleen, and pancreas. There is no evidence of pulmonary embolic disease. There are multiple new tree in bud opacities and consolidative opacities predominantly in the right lower lobe, suspicious for acute infectious proces s. Changes of scarring are noted bilaterally unchanged from prior CT of May 30.. Thoracic aort a shows areas of ectasia in its descending portion and shows heterogeneous opacification in its desce nding portion, unchanged from multiple prior CTs, question low-flow state, please correlate clinicall y. No gross dissection identified. No mediastinal or hilar adenopathy. IMPRESSION: No evidence of pulmonary embolic disease. Findings suspicious for acute infectious process predomina ntly involving right lower lobe. Appropriate follow-up studies requested. RADIATION DOSE DELIVERED: 249.19mGy.cm Total DLP 249.19mGy.cm Total DLP DATA REPOSITORY: All CT scans at this facility are submitted to the National Radiology Data Registry (NRDR) Dose Index Registry (DIR) with the [employer] (A[employer]). RADIATION OPTIMIZATION: All CT scans at this facility use at least one of these dose optimization te chniques: automated exposure control; mA and/or kV adjustment per patient size (includes targeted exa ms where dose is matched to clinical indication); or iterative reconstruction.
[2020-07-23 13:48] LABS: Abs Immature Grans 0.04 10^3/uL (0.0-0.06); Absolute Basophil Count 0.09 10^3/uL (0.0-0.2); Absolute Eosinophil Count 0.23 10^3/uL (0.0-0.7); Absolute Monocyte Count 0.95 10^3/uL (0.1-0.8); Absolute Neutrophil Count 8.13 10^3/uL (1.2-6.7); Basophils % 0.8; Eosinophils % 2.1; HCT 43.1 % (40.0-50.0); Immature Grans % 0.4; Lymphocytes % 14.5; MCH 30.6 pg (27.0-33.0); MCHC 32.5 % (32.0-36.0); MCV 94.1 fL (80-95); MPV 9.1 fL (8.0-11.0); Monocytes % 8.6; Neutrophils % 73.6; Nucleated RBC 0 %; Platelet Count 371 10^3/uL (130-400); RBC 4.58 10^6/uL (4.36-5.78); RDW 12.3 % (11.8-14.1); RDW-SD 42.6 fL; WBC 11.04 10^3/uL (4.4-10.8)
[2020-07-23 14:01] LABS: ALT 13 U/L (16-63); AST 10 U/L (15-37); Albumin 3.1 g/dL (3.4-5.0); Alkaline Phosphatase 113 U/L (46-116); Anion Gap 4.9 mmol/L (3-11); BUN 9 mg/dL (7-18); Bilirubin, Total 0.2 mg/dL (0.2-1.0); CO2 31.1 mmol/L (21.0-32.0); Calcium 8.8 mg/dL (8.5-10.1); Chloride 103 mmol/L (98-107); Glucose 89 mg/dL (74-106); Magnesium 2.2 mg/dL (1.8-2.4); Potassium 3.8 mmol/L (3.5-5.1); Sodium 139 mmol/L (136-145); Total Protein 7.1 g/dL (6.4-8.2); Troponin I < 0.05 ng/mL (<0.06)
[2020-07-23 14:10] LABS: INR 1.2 (0.9-1.1); PTT Activated 30.5 sec (21.0-27.5); Prothrombin Time 11.7 sec (9.3-11.0)
[2020-07-23] MEDS: Omnipaque 350 MG/ML 100 ML BTL IJ (14:48)
[2020-07-23] MEDS: Normal Saline - Diluent 50 ML VIAL IV (14:49)
[2020-07-23] MEDS: Amoxicillin 875/Clav. 125 TAB PO (15:46)
[2020-07-23] MEDS: Doxycycline Hyclate 100 MG CAP PO (15:46)
== END 2020-07-23 16:10 | disposition home or self-care (01) ==
PROVIDERS: Emergency Provider Physician Assistant; PCP Internal Medicine
DX: R04.2 Hemoptysis (principal); J18.9 Pneumonia, unspecified organism; Z85.118 Personal history of other malignant neoplasm of bronchus and lung; Z79.01 Long term (current) use of anticoagulants; F17.210 Nicotine dependence, cigarettes, uncomplicated; J44.9 Chronic obstructive pulmonary disease, unspecified
CPT/HCPCS: 36415; 71275; 80053; 93005; 99285; 83735; 84484; 85025; 85610; 85730; 93010; J3490

== ENCOUNTER 2020-08-24 03:07 | Outpatient (CLI) | payer MEDICARE, SELFPAY ==
[2020-08-24 16:34] LABS: VALPROIC ACID 54.7 ug/mL (50-100)
== END 2020-08-24 03:27 ==
PROVIDERS: PCP Internal Medicine; Visit Provider Internal Medicine
DX: R56.9 Unspecified convulsions (principal); Z51.81 Encounter for therapeutic drug level monitoring
CPT/HCPCS: 36415; 80164

== ENCOUNTER 2020-12-22 10:22 | Outpatient (REF) | payer MEDICARE, SELFPAY ==
[2020-12-22 14:04] LABS: HCT 43.5 % (40.0-50.0); HGB 14.8 g/dL (13.5-17.5); MCH 31.3 pg (27.0-33.0); MPV 10.5 fL (8.0-11.0); Platelet Count 222 10^3/uL (130-400); RBC 4.73 10^6/uL (4.36-5.78); RDW 12.8 % (11.8-14.1); RDW-SD 43.5 fL; WBC 11.07 10^3/uL (4.4-10.8)
[2020-12-22 14:20] LABS: Iron 74 ug/dL (65-175); Total Iron Binding Capacity 270 ug/dL (250-450); Transferrin Sat 27 % (20-55)
[2020-12-22 14:53] LABS: ALT 20 U/L (16-63); AST 12 U/L (15-37); Albumin 3.6 g/dL (3.4-5.0); Alkaline Phosphatase 128 U/L (46-116); Anion Gap 8.6 mmol/L (3-11); BUN 10 mg/dL (7-18); Bilirubin, Total 0.3 mg/dL (0.2-1.0); CO2 29.4 mmol/L (21.0-32.0); CREATININE 1.6 mg/dL (0.70-1.30); Calcium 8.6 mg/dL (8.5-10.1); Chloride 105 mmol/L (98-107); Ferritin 46 ng/mL (26-388); Glucose 85 mg/dL (74-106); Sodium 143 mmol/L (136-145); TSH 0.95 uIU/mL (0.36-3.74); Total Protein 6.5 g/dL (6.4-8.2); Vitamin B12 535 pg/mL (193-986)
[2020-12-22 14:59] LABS: Potassium 2.9 mmol/L (3.5-5.1)
== END 2020-12-22 10:23 | disposition home or self-care (01) ==
LOC: NCHCN 10:22
PROVIDERS: PCP Internal Medicine; Visit Provider Internal Medicine
DX: E87.6 Hypokalemia (principal); G25.81 Restless legs syndrome; R09.02 Hypoxemia; R26.9 Unspecified abnormalities of gait and mobility; N18.30 Chronic kidney disease, stage 3 unspecified; C34.12 Malignant neoplasm of upper lobe, left bronchus or lung; Z86.69 Personal history of other diseases of the nervous system and sense organs; Z79.899 Other long term (current) drug therapy
CPT/HCPCS: 80053; 85027; 82607; 82728; 83540; 83550; 84443

== ENCOUNTER 2020-12-29 09:36 | Outpatient (REF) | payer MEDICARE, SELFPAY ==
[2020-12-29 12:59] LABS: Potassium 4.7 mmol/L (3.5-5.1)
== END 2020-12-29 09:37 | disposition home or self-care (01) ==
LOC: NCHCN 09:36
PROVIDERS: PCP Internal Medicine; Visit Provider Internal Medicine
DX: N18.30 Chronic kidney disease, stage 3 unspecified (principal)
CPT/HCPCS: 84132

== ENCOUNTER 2021-03-19 03:20 | Emergency (ER) | payer MEDICARE, SELFPAY ==
--- NOTE | 2021-03-19 03:22 | ED.GENADUL_ITS ---
Discharge Plan Disposition Patient Disposition: HOME Condition: Good Discharge Details Clinical Impression: Dog scratch, Wound infection, posttraumatic Primary Care Provider: Rylan Page ED Provider: Manuel Mora [place] Meds and New Rx's Prescriptions: New Hydrocodone/Apap 5/325, 4 Tab [[place] 5/325, 4 Tabs/Btl] 1 tab PO DISPENSE Qty: 4 RF: 0 Continued ranitidine HCl 150 mg Tablet 150 mg PO DAILY RF: 0 Breo Ellipta 200-25 mcg/dose Blister With Device 1 inh INHALATION DAILY RF: 0 aspirin [Aspir-81] 81 MG tablet,delayed release (DR/EC) 81 mg PO DAILY RF: 0 rosuvastatin [Crestor] 40 MG tablet 40 mg PO QPM RF: 0 albuterol sulfate [ProAir HFA] 90 mcg/actuation Hfa Aerosol Inhaler 2 puff INHALATION .4-6 HOURS PRNRF: 0 Eliquis 5 mg tablet 5 mg PO BID RF: 0 Stiolto Respimat 2.5-2.5 mcg/actuation Mist 2 puff Inhalation DAILY RF: 0 ipratropium-albuterol 0.5 mg-3 mg(2.5 mg base)/3 mL Solution For Nebulization 3 ml UPD Q6H PRN PRN (Reason: shortness of breath or wheezing) Qty: 180 RF: 0 amoxicillin-pot clavulanate 875-125 mg Tablet 1 tab PO BID 7 Days Qty: 14 RF: 0 Changed acetaminophen 500 mg Tablet 1,000 mg PO Q6H PRN PRNQty: 0 RF: 0 Discharge Instructions Instructions: Hydrocodone/Acetaminophen (By mouth), Wound Infection (ED), Opioid Safety (ED) Additional Instructions: Keep your hand elevated to help with the swelling. Take your antibiotic as directed. Follow-up with primary care in 2-3 days if not improving. Return to ED for significantly worsening pain, swelling, fever, other concerns. Referrals: Rylan Page MD [Primary Care Provider] - Medical Decision Making Patient with infected laceration to the dorsum of the left hand that he sustained from his dog inadvertently scratching and causing a flap laceration. Flap is subsequently sealed down and looks pretty good. However, has developed tenderness, swelling, erythema consistent with soft tissue infection. Pain with opening and closing of hand but able to do so fully. No fluctuance or evidence of local abscess. Patient will be started on Augmentin. Instructed to keep hand elevated to help with swelling. Given 1 [place] tab here for pain and discharged with a prepack of 4 while waiting for antibiotic to start working. Information sheet and informed consent obtained. Instructed to follow-up with primary care in 2 to 3 days if not improving. Return to ED if significantly worsening pain, redness, swelling, fever, other concerns. Last tetanus was in 2018 per primary care records. HPI General Mode of arrival: wheelchair . Date/Time Provider Initiated Documentation: 03/19/21 03:21 . Limitations to Documentation: no limitations . Information obtained by: patient, family and RN notes reviewed . HPI Narrative: Patient presents to ED with left hand pain, redness, swelling status post dog scratch 2 days prior. Patient was playing with his dog. Sustained a deep cut to the dorsum of the left hand from the dog's claw. Subsequently has become increasingly more painful, red, swollen. Denies any fever. Denies any drainage from the area though it did bleed and ooze for some time due to the fact that he is on Eliquis. At this point the laceration/flap is sealed down. He is able to open and close his hand although it is quite painful especially at the ring and little finger. Related Data Home Medications Medication Instructions Recorded Confirmed aspirin [Aspir-81] 81 mg PO DAILY 04/25/14 03/19/21 rosuvastatin [Crestor] 40 mg PO QPM 04/25/14 03/19/21 Stiolto Respimat 2 puff INHALATION DAILY 07/03/18 03/19/21 ipratropium-albuterol 3 ml UPD Q6H PRN PRN #180 ml 12/02/18 03/19/21 albuterol sulfate [ProAir HFA] 2 puff INHALATION .4-6 HOURS PRN 11/29/19 03/19/21 Eliquis 5 mg PO BID 05/30/20 03/19/21 Breo Ellipta 1 inh INHALATION DAILY 08/05/20 03/19/21 ranitidine HCl 150 mg PO DAILY 08/05/20 03/19/21 HYDROcodone/APAP 5/325, 4 tab 1 tab PO DISPENSE #4 caplet 03/19/21 [[place] 5/325, 4 tabs/btl] acetaminophen 1,000 mg PO Q6H PRN PRN #0 tab 03/19/21 08/15/20 amoxicillin-pot clavulanate 1 tab PO BID 7 Days #14 tab 03/19/21 Previous Rx's Medication Instructions Recorded ipratropium-albuterol 3 ml UPD Q6H PRN PRN #180 ml 12/02/18 HYDROcodone/APAP 5/325, 4 tab 1 tab PO DISPENSE #4 caplet 03/19/21 [[place] 5/325, 4 tabs/btl] acetaminophen 1,000 mg PO Q6H PRN PRN #0 tab 03/19/21 amoxicillin-pot clavulanate 1 tab PO BID 7 Days #14 tab 03/19/21 Allergies Allergy/AdvReac Type Severity Reaction Status Date / Time No Known Allergies Allergy Unverified 03/19/21 03:27 General BRYAN: 3 Review of Systems Constitutional Constitutional: Denies fever(s) and Denies weakness Musculoskeletal Musculoskeletal: Denies arthralgias, Denies joint swelling and Denies numbness Integumentary/Breasts Skin/Breast: Reports erythema, Reports skin swelling and Reports wounds Neurologic Neurologic: Denies numbness and Denies weakness PFSH Medical History Abdominal aortic aneurysm (AAA) Aneurysm of femoral artery Back pain, chronic leg pain, implanted nerve stimulator Chest wall pain Chronic cough CKD (chronic kidney disease) stage 3, GFR 30-59 ml/min Constipation COPD (chronic obstructive pulmonary disease) Diastolic dysfunction PERSON (dyspnea on exertion) Ganglion cyst GERD (gastroesophageal reflux disease) History of adenomatous polyp of colon History of epistaxis History of hematuria History of seizures Hyperlipidemia Incisional hernia Irregular cardiac rhythm Leg edema, left Leukocytosis Lower urinary tract symptoms Lung cancer, upper lobe Status post left lobectomy with no other treatment and no evidence of recurrence Malaise and fatigue Neuropathy ischemic, bilateral legs Neuropathy of both feet PVD (peripheral vascular disease) Sebaceous cyst SOB (shortness of breath) Tobacco use URI (upper respiratory infection) Surgical History History of surgical procedure multiple vascular procedures/bypass grafts BLE S/P AAA repair S/P lobectomy of lung Social History Smoking/Tobacco Use Status: Current every day Tobacco Type: cigarettes Tobacco: How many years used: 40 Smoking risk assessment performed?: Yes Alcohol Intake: never Drug use: Never Substance use type: does not use Do you feel safe at home: Yes Do you feel safe in your relationship?: Yes Exam Const General: comfortable and no acute distress Orientation: alert and oriented x3 HENMT Head: normocephalic and atraumatic Neck Neck: trachea midline and supple Resp Effort & Inspection: normal respiratory effort Skin General skin exam: erythema and no fluctuance Trauma: laceration (dorsum left hand) Other: healing flap laceration to back of left hand with erythema, swelling. No drainage. No fluctuance. Extrem Left upper extremity: wrist Details: normal ROM; no tenderness and no swelling and hand Details: neuromotor exam normal, neurosensory exam normal, tenderness Location: of the dorsal hand, abnormal ROM of finger (Pain with opening and closing of hand), warmth Location: of the dorsal hand and swelling Location: of the dorsal hand
[2021-03-19 03:24] VITALS: BP 118/71; PULSE 71; RESP 16; TEMP 37.5; O2SAT 97
[2021-03-19] MEDS: HYDROcodone 5/Acetaminophen 325 TAB PO (03:44)
[2021-03-19] MEDS: Amoxicillin 875/Clav. 125 TAB PO (03:45)
== END 2021-03-19 04:00 | disposition home or self-care (01) ==
LOC: ER 04:00
PROVIDERS: Emergency Provider Emergency Medicine; PCP Internal Medicine
DX: S61.412A Laceration without foreign body of left hand, initial encounter (principal); L08.9 Local infection of the skin and subcutaneous tissue, unspecified; W54.8XXA Other contact with dog, initial encounter
CPT/HCPCS: 99283

== ENCOUNTER → 2021-04-04 07:50 | Outpatient (BNVA) | payer MEDICARE, SELFPAY | PROVIDERS: PCP Internal Medicine; Referring Provider Internal Medicine; Visit Provider Surgery | DX: L72.8 Other follicular cysts of the skin and subcutaneous tissue (principal); Z86.79 Personal history of other diseases of the circulatory system; Z79.01 Long term (current) use of anticoagulants | CPT/HCPCS: 99202; 99214 ==

== ENCOUNTER → 2021-04-14 10:18 | Outpatient (BNVA) | payer MEDICARE, SELFPAY | PROVIDERS: PCP Internal Medicine; Referring Provider Internal Medicine; Visit Provider Physical Therapy Assistant | DX: L72.8 Other follicular cysts of the skin and subcutaneous tissue (principal) | CPT/HCPCS: 11400 ==

== ENCOUNTER 2021-04-14 11:56 | Outpatient (REF) | payer MEDICARE, SELFPAY ==
--- NOTE | 2021-04-14 11:30 | SKI_PTH ---
PATIENT: Hayes Jennings LOC: [facility] U#:[id number] AGE/SX: 71/M ROOM: RE04/14/[address]: GEORGINA Younger : 1950 BED: DIS: 04/14/2021 SPEC #: [id number] RECD: 04/14/21 13:07 STATUS: KINJAL RERoel #: [id number] CRISTIANO: 04/14/21 11:[address]: Nirmala Norton DEPT: Surgical Specimen RECD BY: Jenny Lucas ENTERED: 04/14/21 13:08 SP TYPE: SKI OTHR DR: Rylan Page Tissues: 1 - SKIN BIOPSY(SHAVE/PUNCH) Procedures: GROSS AND MICRO LEVEL 3 Comments: [id number]
== END 2021-04-14 11:57 | disposition home or self-care (01) ==
LOC: LBN 11:56
PROVIDERS: PCP Internal Medicine; Visit Provider Physical Therapy Assistant
DX: L72.8 Other follicular cysts of the skin and subcutaneous tissue (principal)
CPT/HCPCS: 88304; 88305

== ENCOUNTER → 2021-04-21 10:50 | Outpatient (BNVA) | payer MEDICARE, SELFPAY | PROVIDERS: PCP Internal Medicine; Referring Provider Internal Medicine; Visit Provider Physical Therapy Assistant | DX: Z48.02 Encounter for removal of sutures (principal) ==

== ENCOUNTER 2021-07-17 09:35 | Outpatient (CLI) | payer OTHER, SELFPAY ==
[2021-07-17 10:28] LABS: Ferritin 26 ng/mL (26-388)
== END 2021-07-17 09:36 | disposition home or self-care (01) ==
LOC: LBO 09:37
PROVIDERS: PCP Internal Medicine; Visit Provider Nurse Practitioner
DX: M25.562 Pain in left knee (principal)
CPT/HCPCS: 36415; 82728

== ENCOUNTER → 2021-10-16 10:31 | Outpatient (BNVA) | payer OTHER, SELFPAY | PROVIDERS: PCP Internal Medicine; Referring Provider Internal Medicine; Visit Provider Surgery | DX: E61.1 Iron deficiency (principal); Z86.010 Personal history of colon polyps; F17.210 Nicotine dependence, cigarettes, uncomplicated; J44.1 Chronic obstructive pulmonary disease with (acute) exacerbation; G54.6 Phantom limb syndrome with pain; R63.4 Abnormal weight loss | CPT/HCPCS: 36415; 99214; 99243 ==

== ENCOUNTER 2021-10-16 16:37 | Outpatient (REF) | payer OTHER, SELFPAY ==
[2021-10-16 14:36] LABS: Abs Immature Grans 0.04 10^3/uL (0.0-0.06); Absolute Basophil Count 0.04 10^3/uL (0.0-0.2); Absolute Eosinophil Count 0.13 10^3/uL (0.0-0.7); Absolute Lymphocyte Count 1.15 10^3/uL (1.2-3.4); Absolute Monocyte Count 0.93 10^3/uL (0.1-0.8); Absolute Neutrophil Count 8.49 10^3/uL (1.2-6.7); Basophils % 0.4; Eosinophils % 1.2; HCT 36.8 % (40.0-50.0); HGB 12.2 g/dL (13.5-17.5); Immature Grans % 0.4; Lymphocytes % 10.7; MCH 31.1 pg (27.0-33.0); MCHC 33.2 % (32.0-36.0); MCV 93.9 fL (80-95); MPV 10.5 fL (8.0-11.0); Monocytes % 8.6; Neutrophils % 78.7; Nucleated RBC 0 %; Platelet Count 171 10^3/uL (130-400); RBC 3.92 10^6/uL (4.36-5.78); RDW 13.3 % (11.8-14.1); RDW-SD 45.6 fL; WBC 10.78 10^3/uL (4.4-10.8)
[2021-10-16 15:02] LABS: ALT 18 U/L (16-63); AST 12 U/L (15-37); Albumin 3.4 g/dL (3.4-5.0); Alkaline Phosphatase 125 U/L (46-116); Anion Gap 8.8 mmol/L (3-11); BUN 13 mg/dL (7-18); Bilirubin, Total 0.4 mg/dL (0.2-1.0); CO2 27.2 mmol/L (21.0-32.0); CREATININE 1.2 mg/dL (0.70-1.30); Calcium 8.3 mg/dL (8.5-10.1); Chloride 106 mmol/L (98-107); Glucose 84 mg/dL (74-106); Iron 89 ug/dL (65-175); Sodium 142 mmol/L (136-145); Total Iron Binding Capacity 317 ug/dL (250-450); Total Protein 6.5 g/dL (6.4-8.2); Transferrin Sat 28 % (20-55)
[2021-10-16 16:00] LABS: Potassium 2.8 mmol/L (3.5-5.1)
== END 2021-10-16 16:38 | disposition home or self-care (01) ==
LOC: LBN 16:37
PROVIDERS: PCP Internal Medicine; Visit Provider Surgery
DX: E61.1 Iron deficiency (principal); F17.210 Nicotine dependence, cigarettes, uncomplicated; G54.6 Phantom limb syndrome with pain; G57.93 Unspecified mononeuropathy of bilateral lower limbs; G62.9 Polyneuropathy, unspecified; I51.89 Other ill-defined heart diseases; I71.4 Abdominal aortic aneurysm, without rupture; I72.4 Aneurysm of artery of lower extremity; J44.1 Chronic obstructive pulmonary disease with (acute) exacerbation; K21.9 Gastro-esophageal reflux disease without esophagitis; K59.00 Constipation, unspecified; N18.30 Chronic kidney disease, stage 3 unspecified; R06.02 Shortness of breath; Z51.81 Encounter for therapeutic drug level monitoring
CPT/HCPCS: 80053; 83540; 83550; 85025

== ENCOUNTER 2021-10-20 03:25 | Outpatient (RCR) | payer OTHER, SELFPAY ==
[2021-10-20] MEDS: IRON SUCROSE COMPLEX 200 MG in Normal Saline 100 ML 440 MG IVPB (07:54)
[2021-10-20] MEDS: Normal Saline Flush 10 ML SYR IVP (07:55)
== END 2021-10-23 23:59 | disposition home or self-care (01) ==
LOC: INF 03:25
PROVIDERS: PCP Internal Medicine; Visit Provider Surgery
DX: D50.9 Iron deficiency anemia, unspecified (principal)
CPT/HCPCS: 96365; J1756

== ENCOUNTER 2021-10-23 16:11 | Outpatient (REF) | payer OTHER, SELFPAY ==
[2021-10-23 21:07] LABS: Potassium 5.2 mmol/L (3.5-5.1)
== END 2021-10-23 16:12 | disposition home or self-care (01) ==
LOC: NCHCN 16:11
PROVIDERS: PCP Internal Medicine; Visit Provider Family Medicine
DX: E87.6 Hypokalemia (principal)
CPT/HCPCS: 84132

== ENCOUNTER 2021-11-01 01:49 | Outpatient (CLI) | payer OTHER, SELFPAY | END 2021-11-01 01:50 | disposition home or self-care (01) | LOC: RT 01:49 | PROVIDERS: PCP Internal Medicine; Visit Provider Student in an Organized Health Care Education/Training Program | DX: J44.1 Chronic obstructive pulmonary disease with (acute) exacerbation (principal) | CPT/HCPCS: 94618 ==

== ENCOUNTER 2021-11-02 01:59 | Outpatient (RCR) | payer OTHER, SELFPAY ==
[2021-10-26] MEDS: Normal Saline Flush 10 ML SYR IVP (09:54)
[2021-10-26] MEDS: IRON SUCROSE COMPLEX 200 MG in Normal Saline 100 ML 440 MG IVPB (09:54)
[2021-11-02] MEDS: IRON SUCROSE COMPLEX 200 MG in Normal Saline 100 ML 440 MG IVPB (10:06)
[2021-11-02] MEDS: Normal Saline Flush 10 ML SYR IVP (10:07)
== END 2021-11-23 23:59 | disposition home or self-care (01) ==
LOC: INF 01:59
PROVIDERS: PCP Internal Medicine; Visit Provider Surgery
DX: D50.8 Other iron deficiency anemias (principal)
CPT/HCPCS: 96365; J1756

== ENCOUNTER 2021-11-15 00:36 | Outpatient (CLI) | payer OTHER, SELFPAY ==
--- NOTE | 2021-11-15 08:47 | DI.CTLCSR_ITS ---
Exam(s) CT CHEST LUNG CANCER SCREEN EXAM: CT CHEST LUNG CANCER SCREEN CLINICAL HISTORY: Screening for lung cancer,current smoker, f17.210. TECHNIQUE: Imaging Protocol: Low Dose Technique CONTRAST MATERIAL: None COMPARISON: CT CT CHEST WO from 01/27/2019 CR XR CHEST 2V PA LATERAL from 06/15/2019 FINDINGS: CHEST: LUNGS: There has been previous left thoracotomy left lung malignancy. Decreased left hemithoracic vo lume again noted. Left lung scarring again noted. There is increasing infiltrate in the anterior aspect of the left kelly ng (series 2/image 63). No new findings towards the left lung base and no pleural effusion. No new significant findings in the ipsilateral left mainstem bronchus.. In the opposite-right lung there is relatively stable infiltrate in the posterior aspect of the right upper lobe, perhaps slightly increased.. No new significant findings in the right middle lobe nor i n the right lower lobe and there is no pleural effusion. No new findings in the right mainstem bronc hus. No pleural effusions on either side. MEDIASTINUM: No obvious new hilar nor mediastinal adenopathy. Visualized thyroid unremarkable. CARDIAC: Heart size is normal. There is no pericardial effusion.Diameter of the ascending thoracic a obdulia is upper normal. Diameter of the aortic arch is minimally prominent. There is mild aneurysmal dilatation of the proximal descending thoracic aorta. Maximum diameter of the descending thoracic ao rta is 3.8 cm. There is also an tirruzxuaag-ytzccuvo-[id number] aneurysm in this vessel descending thoraci c aorta where it exhibits diameter 4 cm, slightly more so than previous. Difficult to assess on this type of noninfused study. OTHER: No adrenal mass is seen. There is a left axillary fem bypass graft noted, not previously pres ent. OSSEOUS: No significant osseous lesions.. IMPRESSION: 1. Mild increase in left lung findings as described in this patient who has had previous left thoraco juan for malignancy. No pleural effusions nor obvious new intrathoracic adenopathy. Recommend follo w-up CT scan in 3 months. 2. 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 This is difficult to assess accurately on a noninfused study. 3. Lung RADS Cat 4A - Suspicious: Findings for which additional diagnostic testing and/or tissue samp ling recommended . Lung-RADS 1.0 CATEGORIES: Category 0 - Prior chest CT exam(s) being located for comparison. Category 1 - Annual screening in 12 months. No nodules or definitely benign nodules. Category 2 - Annual screening in 12 months. Benign appearance. Nodules with low likelihood of becomin g active cancer. Category 3 - 6-month follow-up. Probably benign. Short-term follow-up suggested. Nodules with low lik elihood of becoming active cancer. Category 4A - 3-month follow-up and CT/PET if >8 mm in size. Suspicious finding. Findings which requi re additional testing. Category 4B - Findings which require additional testing and tissue sampling. Category 4X - Category 3 or 4 nodules with additional features or imaging findings that increases the suspicion of malignancy. Modifier S- Potentially clinically significant findings (non lung cancer) RADIATION DOSE DELIVERED: 82.33mGy.cm Total DLP 1.84mGy CTDIvol DATA REPOSITORY: All CT scans at this facility are submitted to the National Radiology Data Registry (NRDR) Dose Index Registry (DIR) with the [employer] ([employer]). RADIATION OPTIMIZATION: All CT scans at this facility use at least one of these dose optimization te chniques: automated exposure control; mA and/or kV adjustment per patient size (includes targeted exa ms where dose is matched to clinical indication); or iterative reconstruction.
== END 2021-11-15 00:56 ==
PROVIDERS: PCP Internal Medicine; Visit Provider Student in an Organized Health Care Education/Training Program
DX: F17.210 Nicotine dependence, cigarettes, uncomplicated (principal); Z12.2 Encounter for screening for malignant neoplasm of respiratory organs; R91.8 Other nonspecific abnormal finding of lung field; I71.2 Thoracic aortic aneurysm, without rupture
CPT/HCPCS: 71271

== ENCOUNTER 2022-01-16 16:42 | Outpatient (REF) | payer OTHER, SELFPAY ==
[2022-01-16 14:48] LABS: HCT 45.2 % (40.0-50.0); HGB 14.8 g/dL (13.5-17.5); MCH 31.3 pg (27.0-33.0); MCHC 32.7 % (32.0-36.0); MCV 96 fL (80-95); MPV 10.6 fL (8.0-11.0); Platelet Count 219 10^3/uL (130-400); RBC 4.73 10^6/uL (4.36-5.78); RDW 12.3 % (11.8-14.1); RDW-SD 43.5 fL; WBC 7.61 10^3/uL (4.4-10.8)
[2022-01-16 15:36] LABS: ALT 20 U/L (16-63); AST 12 U/L (15-37); Albumin 4.1 g/dL (3.4-5.0); Alkaline Phosphatase 132 U/L (46-116); Anion Gap 7.4 mmol/L (3-11); BUN 10 mg/dL (7-18); Bilirubin, Total 0.5 mg/dL (0.2-1.0); CO2 31.6 mmol/L (21.0-32.0); CREATININE 1.3 mg/dL (0.70-1.30); Chloride 102 mmol/L (98-107); Estimated GFR 54.73 (mL/min/1.73m2); Ferritin 76 ng/mL (26-388); Glucose 73 mg/dL (74-106); Potassium 4.3 mmol/L (3.5-5.1); Sodium 141 mmol/L (136-145); Total Protein 7.2 g/dL (6.4-8.2)
== END 2022-01-16 16:43 | disposition home or self-care (01) ==
LOC: NCHCN 16:42
PROVIDERS: PCP Internal Medicine; Visit Provider Family Medicine
DX: Z00.00 Encounter for general adult medical examination without abnormal findings (principal); N18.30 Chronic kidney disease, stage 3 unspecified; J44.9 Chronic obstructive pulmonary disease, unspecified
CPT/HCPCS: 80053; 85027; 82728

== ENCOUNTER 2022-05-18 11:29 | Emergency (ER) | payer OTHER, SELFPAY ==
[2022-05-18 11:33] VITALS: BP 135/51; PULSE 95; RESP 18; TEMP 36.6; O2SAT 97
[2022-05-18] MEDS: Clindamycin 300 MG CAP PO (12:50)
--- NOTE | 2022-05-18 13:02 | ED.GENADUL_ITS ---
Discharge Plan Disposition Patient Disposition: HOME Condition: Improving Discharge Details Clinical Impression: Perianal abscess Primary Care Provider: Rylan Page ED Provider: Declan Aguilar Home Meds and New Rx's Prescriptions: New clindamycin HCl 300 mg capsule 300 mg PO QID 7 Days Qty: 28 0RF No Action bisacodyl [Dulcolax (bisacodyl)] 5 mg tablet,delayed release (DR/EC) 5 mg PO ONCE Qty: 4 0RF Rx Instructions: take per colonoscopy instructions Stiolto Respimat 2.5-2.5 mcg/actuation mist 2 puff inhalation DAILY Qty: 4 12RF aspirin [Aspir-81] 81 MG tablet,delayed release (DR/EC) 81 mg PO DAILY rosuvastatin [Crestor] 40 MG tablet 40 mg PO QPM albuterol sulfate [ProAir HFA] 90 mcg/actuation Hfa Aerosol Inhaler 2 puff INHALATION .4-6 HOURS PRN Eliquis 5 mg tablet 5 mg PO BID Label Comments: TAKE ONE TABLET BY MOUTH TWICE A DAY acetaminophen 500 mg Tablet 1,000 mg PO Q6H PRN PRNQty: 0 0RF Discharge Instructions Instructions: Abscess Incision and Drainage (DC) Additional Instructions: Please keep area clean and dry. Please take antibiotics as prescribed. Please return to the emergency department for any worsening symptoms. Medical Decision Making 72-year-old male presents with 2 to 3 days of worsening perineal pain and swelling in local area of fluctuance, 2 to 3 cm area consistent with perianal/perineal abscess. Incision and drainage performed after local anesthesia, copious amount of purulent material expressed. No surrounding erythema or induration or systemic signs of illness however given location and patient's age will place patient on antibiotic have given dose of clindamycin here we will continue with clindamycin as an outpatient. Home care instructions and return precautions given HPI General Date/Time Provider Initiated Documentation: 05/18/22 11:45 . HPI Narrative: 72-year-old male presents with several days of painful swelling in his perineum has noticed a lump that is growing Related Data Home Medications Medication Instructions Recorded Confirmed aspirin 81 mg tablet,delayed 81 mg PO DAILY 04/25/14 01/29/22 release (Aspir-) rosuvastatin 40 mg tablet (Crestor) 40 mg PO QPM 04/25/14 01/29/22 albuterol sulfate 90 mcg/actuation 2 puff inhalation .4-6 HOURS PRN 11/29/19 01/29/22 aerosol inhaler (ProAir HFA) apixaban 5 mg tablet (Eliquis) 5 mg PO BID 05/30/20 01/29/22 acetaminophen 500 mg tablet 1,000 mg PO Q6H PRN PRN #0 tabs 03/19/21 01/29/22 tiotropium 2.5 mcg-olodaterol 2.5 2 puff inhalation DAILY #4 grams 08/22/21 01/29/22 mcg/actuation mist for inhalation (Stiolto Respimat) bisacodyl 5 mg tablet,delayed 5 mg PO ONCE colonscopy bowel prep 10/16/21 01/29/22 release (Dulcolax (bisacodyl)) #4 tabs clindamycin HCl 300 mg capsule 300 mg PO QID 7 days #28 caps 05/18/22 Previous Rx's Medication Instructions Recorded acetaminophen 500 mg tablet 1,000 mg PO Q6H PRN PRN #0 tabs 03/19/21 tiotropium 2.5 mcg-olodaterol 2.5 2 puff inhalation DAILY #4 grams 08/22/21 mcg/actuation mist for inhalation (Stiolto Respimat) bisacodyl 5 mg tablet,delayed 5 mg PO ONCE colonscopy bowel prep 10/16/21 release (Dulcolax (bisacodyl)) #4 tabs clindamycin HCl 300 mg capsule 300 mg PO QID 7 days #28 caps 05/18/22 Allergies Allergy/AdvReac Type Severity Reaction Status Date / Time No Known Allergies Allergy Unverified 01/29/22 09:31 General Stated Complaint: RashLesion BRYAN: 3 Review of Systems Narrative: review of Systems Constitutional: negative Eyes: negative ENT: negative Cardiovascular: negative Respiratory: negative Gastrointestinal: negative : negative Musculoskeletal: negative Skin: Perineal swelling Neurologic: negative Psych: negative PFSH All Active Problems (Updated 05/18/22 @ 13:06 by Declan Aguilar MD) Perianal abscess (Acute) Adenomatous polyps (Acute) Low iron (Acute) Cigarette smoker (Acute) Medication monitoring encounter (Acute) Phantom limb pain (Acute) Visual hallucination (Acute) Auditory hallucination (Acute) Hypoxemia (Acute) Cyst of skin (Acute) Screening for colon cancer (Acute) Dog scratch (Acute) Wound infection, posttraumatic (Acute) Acute kidney injury (nontraumatic) (Acute) Elevated d-dimer (Acute) Pleuritic chest pain (Acute) Dyspnea (Acute) COPD (chronic obstructive pulmonary disease) (Acute) Medical History (Updated 05/18/22 @ 13:06 by Declan Aguilar MD) Abdominal aortic aneurysm (AAA) Aneurysm of femoral artery Back pain, chronic leg pain, implanted nerve stimulator Chest wall pain Chronic cough CKD (chronic kidney disease) stage 3, GFR 30-59 ml/min Constipation COPD (chronic obstructive pulmonary disease) Diastolic dysfunction PERSON (dyspnea on exertion) Ganglion cyst GERD (gastroesophageal reflux disease) History of adenomatous polyp of colon History of epistaxis History of hematuria History of seizures Hyperlipidemia Incisional hernia Irregular cardiac rhythm Leg edema, left Leukocytosis Lower urinary tract symptoms Lung cancer, upper lobe Status post left lobectomy with no other treatment and no evidence of recurrence Malaise and fatigue Neuropathy ischemic, 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 PVD (peripheral vascular disease) Sebaceous cyst SOB (shortness of breath) Tobacco use URI (upper respiratory infection) Surgical History History of above-knee amputation History of surgical procedure multiple vascular procedures/bypass grafts BLE S/P AAA repair S/P lobectomy of lung Social History Smoking/Tobacco Use Status: Current every day Tobacco Type: cigarettes Tobacco: How many years used: 40 Smoking risk assessment performed?: Yes Alcohol Intake: never Drug use: Never Substance use type: does not use Current gender identity: male Do you feel safe at home: Yes Do you feel safe in your relationship?: Yes Exam Narrative Exam Narrative: Physical Examination General: alert, awake, cooperative, resting comfortably, no acute distress HEENT: normocephalic, atraumatic; PERRL, EOM intact, conjunctiva normal; no nasal discharge; moist mucous membranes, oral and pharyngeal mucosa normal, tolerating secretions Neck: supple, trachea midline; full ROM Chest: normal to inspection Respiratory: normal respiratory effort, speaking in full sentences, clear to auscultation, no wheezing, rales or rhonchi Cardiac: regular rate, regular rhythm, S1S2 intact, no murmurs rubs or gallops GI: abdomen soft, non-tender, non-distended; no palpable mass or hepatosplenomegaly : 3 cm fluctuant subcutaneous nodule consistent with abscess in the perineum perianal in nature Neuro: AAOx3, normal speech, moving all extremities Psych: Appropriate mood and affect Course Vital Signs Vital signs: Vital Signs Temperature 36.6 C 05/18/22 11:33 Pulse 95 H 05/18/22 11:33 Respiratory Rate 18 05/18/22 11:33 Blood Pressure 135/51 L 05/18/22 11:33 Pulse Oximetry 97 05/18/22 11:33 Temperature 36.6 C 05/18/22 11:33 Temperature Source Temporal Artery Scan 05/18/22 11:33 Pulse 95 H 05/18/22 11:33 Respiratory Rate 18 05/18/22 11:33 Respiratory Effort 05/18/22 12:02 Blood Pressure 135/51 L 05/18/22 11:33 Blood Pressure Position Sitting 05/18/22 11:33 Pulse Oximetry 97 05/18/22 11:33 Oxygen Delivery Method Room Air 05/18/22 11:33 Oxygen Flow Rate 0 05/18/22 11:33 Procedures Abscess I/D Site: Other (Perianal, perineum) Local Anesthetic: Lidocaine 1% Amount of anesthesia used (mL): 2 Technique: Incised with #11 Blade Amount of fluid expressed (mL): 7 Irrigation: No Packing used?: None
[2022-05-18 13:10] VITALS: BP 132/56; PULSE 89; RESP 18; TEMP 36.7; O2SAT 97
== END 2022-05-18 18:45 | disposition home or self-care (01) ==
PROVIDERS: Emergency Provider Emergency Medicine; PCP Internal Medicine
DX: K61.0 Anal abscess (principal); F17.210 Nicotine dependence, cigarettes, uncomplicated
CPT/HCPCS: 46050; 99283

== ENCOUNTER 2022-06-19 02:31 | Outpatient (CLI) | payer OTHER, SELFPAY ==
[2022-06-19 08:39] LABS: Estimated GFR 35.24 (mL/min/1.73m2)
== END 2022-06-19 02:32 | disposition home or self-care (01) ==
LOC: LBO 02:31
PROVIDERS: PCP Internal Medicine; Visit Provider Surgery
DX: I71.60 Thoracoabdominal aortic aneurysm, without rupture, unspecified (principal)
CPT/HCPCS: 36415; 82565

== ENCOUNTER 2022-08-24 10:00 | Emergency (ER) | payer OTHER, SELFPAY ==
[2022-08-24] VITALS (101 sets, daily range): BP systolic 92–122; BP diastolic 36–60; PULSE 70–138; RESP 14–30; TEMP 36.6; O2SAT 88–98
--- NOTE | 2022-08-24 10:56 | W.ED.GENAD ---
Discharge Plan Disposition Patient Disposition: Transfer-Acute Inpatient Care Specific Acute Inpt Facility: Other Condition: Stable Discharge Details Clinical Impression: Acute renal failure, Rhabdomyolysis, Anemia, Elevated liver transaminase level Primary Care Provider: Rylan Page ED Provider: Margy Atkinson Home Meds and New Rx's Prescriptions: No Action albuterol sulfate [ProAir HFA] 90 mcg/actuation HFA aerosol inhaler 2 puff INHALATION .4-6 HOURS PRN (Reason: shortness of breath or wheezing) Qty: 8.5 12RF fluticasone propionate [Flovent HFA] 110 mcg/actuation HFA aerosol inhaler 1 puff inhalation BID Qty: 12 12RF Rx Instructions: administer with spacer Use twice daily when feeling more chest congestion Stiolto Respimat 2.5-2.5 mcg/actuation mist 2 puff inhalation DAILY Qty: 4 12RF bisacodyl [Dulcolax (bisacodyl)] 5 mg tablet,delayed release (DR/EC) 5 mg PO ONCE Qty: 4 0RF Rx Instructions: take per colonoscopy instructions rosuvastatin [Crestor] 40 MG tablet 40 mg PO QPM Eliquis 5 mg tablet 5 mg PO BID Label Comments: TAKE ONE TABLET BY MOUTH TWICE A DAY aspirin [Aspir-81] 81 mg Tablet,Delayed Release (Dr/Ec) 81 mg PO DAILY cephalexin 500 mg tablet 500 mg PO TID Label Comments: Take 1 tablet by mouth three times a day molnupiravir 200 mg Capsule 800 mg PO DAILY acetaminophen 500 mg Tablet 1,000 mg PO Q6H PRN PRNQty: 0 0RF Discharge Data Discharge Date/Time-TO BE ENTERED AT DEPARTURE: 08/25/22 07:59 Medical Decision Making <GEORGINA Chairez - Last Filed: 08/26/22 16:06> This 72-year-old gentleman who presents with weakness, hypotension, back pain, and myalgias has a creatinine of 9.9, BUN of 87, potassium of 2.7, elevated LFTs and alk phos pH is 7.28, he states he is had decreased food and fluid consumption since feeling ill He reportedly started taking Keflex 3 days ago but denies any additional new medications Denies prior history of similar symptoms in the past PT/INR 1.2/12.3 CPK 8077 with a urinalysis without evidence of infection, will micro without blood, small amount of protein noted on urinalysis Influenza, COVID, and flu negative Repeat creatinine of 9.1, potassium of 2.7, calcium was 7.3, elevated LFTs 175 125 Patient have received received 2 L of fluid, 1 L initially of LR, followed by 1 L of NS Blood pressure has improved Patient is fully alert and oriented CT chest abdomen pelvis does not show evidence of acute abnormality Given and significant change in creatinine after 2 L of fluid, pending nephrology consultation to [facility] paged at 1550 <Gi Collier NP - Last Filed: 09/01/22 08:18> This 72-year-old gentleman who presents with weakness, hypotension, back pain, and myalgias has a creatinine of 9.9, BUN of 87, potassium of 2.7, elevated LFTs and alk phos pH is 7.28, he states he is had decreased food and fluid consumption since feeling ill He reportedly started taking Keflex 3 days ago but denies any additional new medications Denies prior history of similar symptoms in the past PT/INR 1.2/12.3 CPK 8077 with a urinalysis without evidence of infection, will micro without blood, small amount of protein noted on urinalysis Influenza, COVID, and flu negative Repeat creatinine of 9.1, potassium of 2.7, calcium was 7.3, elevated LFTs 175 125 Patient have received received 2 L of fluid, 1 L initially of LR, followed by 1 L of NS Blood pressure has improved Patient is fully alert and oriented CT chest abdomen pelvis does not show evidence of acute abnormality Given and significant change in creatinine after 2 L of fluid, pending nephrology consultation to [facility] paged at 1550 1600: S[place]: Care assumed from provider (GEORGINA Chairez) Please see their initial HPI, PE, and documentation. Discussed patient details and case and pending workup and disposition. Patient's condition is serious acute renal failure heart rate is 97, and alert and oriented. At the time of signout awaiting [facility] consult with nephrology for possible transfer. 1638: Spoke with Dr. Greene with [facility] nephrology regarding patient case and details I did discuss the labs and patient presentation with him. He recommends supportive care until tomorrow morning at which point we should really connect with [facility] for possible transfer for dialysis. He does recommend blood cultures x2, urine culture and chest x-ray to rule out infection. He believes this is acute kidney injury due to the rhabdomyolysis he reports that the fluid of choice is LR lactated Ringer's, he recommends oral bicarb 650 mg 3 times a day, adding on thyroid studies, SPEP, UPEP and free e;ectrolyte chainge, differential diagnosis includes myeloma. Regarding the potassium he recommends 80 mill equivalents and give slow. He reports 40 mill equivalents p.o. now and then recheck and redose every 3 hours. At this time we are at bed capacity, also [facility] is at bed capacity. They state that we need to recall in the a.m. for possible bed availability and transfer. Will recheck CMP every 4 hours. Will consider contacting [facility]. 1836: Patient c/o Right AKA stump pain, Morphine 2mg IV ordered. 1835: [facility] transfer center contacted, they are over capacity at this time. Will consider touching base with transfer center after repeat labs. 2048: [facility] called no bed capacity, [facility], no capacity not accepting new dialysis patients, [facility] called Spoke with [facility], No bed capacity at this time. 2131: CBC repeat shows decreased hemoglobin hematocrit hemoglobin 8.7 hematocrit 24 RBCs 2.79 PT 12.2 INR 1.2 APTT 32.2, which is down from 10.5 and 29 approximately 8 hours ago. Hemoccult stool trace positive. No gross hematochezia noted, patient does state that the stool is always dark. He is normally on Eliquis. He denies any abdominal pain. Repeat CT PE shows a sodium of 130, potassium 3.4, chloride 95, carbon dioxide 18.0 anion gap 17.0 slightly improved, BUN slightly trending upward 84 9.6 calcium 7.4, AST 133 ALT 166, CK is slightly improved at 6708, TSH 1.08. 2148: I& O at this time 2209, 200 cc urine output @ 2030 pm from the [facility]. 2149: Will re-discuss with Nephrology at [facility], Transfer Ctr contacted. 2205: Spoke with Dr. Greene [facility] nephrology regarding repeat labs he recommends dose of 20meq potassium, repeat labs at 7 AM. Will discuss conversation with family to determine their preferences, we will continue to seek possible transfer at surrounding hospitals. 2359: Surrounding area hospitals called [facility] said they would entertain the idea of having an ED to ED transfer however patient may stay in the ER for 2 to 3 days. I did discuss this with patient who refuses transfer to [facility]. Patient's O2 sat is 88-89 on room air while sleeping. I did listen to his lungs which sound wheezy. I am concerned for possible fluid overload patient has received 3 L of fluid since his stay here. The last liter was written for 100/ hour but patient got a liter of fluid. Patient placed on 2 L nasal cannula O2 sat is 97%. Portable chest x-ray ordered. Patient refusing transfer to [facility] at this time. Care is to be handed off to ER Dr. Atkinson pending repeat labs in a.m. and reevaluation for transfer versus admission and transfer. <Margy Atkinson, DO - Last Filed: 08/27/22 08:19> GEORGINA Chairez This 72-year-old gentleman who presents with weakness, hypotension, back pain, and myalgias has a creatinine of 9.9, BUN of 87, potassium of 2.7, elevated LFTs and alk phos pH is 7.28, he states he is had decreased food and fluid consumption since feeling ill He reportedly started taking Keflex 3 days ago but denies any additional new medications Denies prior history of similar symptoms in the past PT/INR 1.2/12.3 CPK 8077 with a urinalysis without evidence of infection, will micro without blood, small amount of protein noted on urinalysis Influenza, COVID, and flu negative Repeat creatinine of 9.1, potassium of 2.7, calcium was 7.3, elevated LFTs 175 125 Patient have received received 2 L of fluid, 1 L initially of LR, followed by 1 L of NS Blood pressure has improved Patient is fully alert and oriented CT chest abdomen pelvis does not show evidence of acute abnormality Given and significant change in creatinine after 2 L of fluid, pending nephrology consultation to [facility] paged at 1550 Gi Collier NP 1600: [place]: Care assumed from provider (GEORGINA Chairez) Please see their initial HPI, PE, and documentation. Discussed patient details and case and pending workup and disposition. Patient's condition is serious acute renal failure heart rate is 97, and alert and oriented. At the time of signout awaiting [facility] consult with nephrology for possible transfer. 1637: Spoke with Dr. Greene with [facility] nephrology regarding patient case and details I did discuss the labs and patient presentation with him. He recommends supportive care until tomorrow morning at which point we should really connect with [facility] for possible transfer for dialysis. He does recommend blood cultures x2, urine culture and chest x-ray to rule out infection. He believes this is acute kidney injury due to the rhabdomyolysis he reports that the fluid of choice is LR lactated Ringer's, he recommends oral bicarb 650 mg 3 times a day, adding on thyroid studies, SPEP, UPEP and free e;ectrolyte chainge, differential diagnosis includes myeloma. Regarding the potassium he recommends 80 mill equivalents and give slow. He reports 40 mill equivalents p.o. now and then recheck and redose every 3 hours. At this time we are at bed capacity, also [facility] is at bed capacity. They state that we need to recall in the a.m. for possible bed availability and transfer. Will recheck CMP every 4 hours. Will consider contacting [facility]. 1836: Patient c/o Right AKA stump pain, Morphine 2mg IV ordered. 1835: [facility] transfer center contacted, they are over capacity at this time. Will consider touching base with transfer center after repeat labs. 2048: [facility] called no bed capacity, [facility], no capacity not accepting new dialysis patients, [facility] called Spoke with [facility], No bed capacity at this time. 2131: CBC repeat shows decreased hemoglobin hematocrit hemoglobin 8.7 hematocrit 24 RBCs 2.79 PT 12.2 INR 1.2 APTT 32.2, which is down from 10.5 and 29 approximately 8 hours ago. Hemoccult stool trace positive. No gross hematochezia noted, patient does state that the stool is always dark. He is normally on Eliquis. He denies any abdominal pain. Repeat CT PE shows a sodium of 130, potassium 3.4, chloride 95, carbon dioxide 18.0 anion gap 17.0 slightly improved, BUN slightly trending upward 84 9.6 calcium 7.4, AST 133 ALT 166, CK is slightly improved at 6708, TSH 1.08. 2148: I& O at this time 2209, 200 cc urine output @ 2030 pm from the [facility]. 2149: Will re-discuss with Nephrology at [facility], Transfer Ctr contacted. 2205: Spoke with Dr. Greene [facility] nephrology regarding repeat labs he recommends dose of 20meq potassium, repeat labs at 7 AM. Will discuss conversation with family to determine their preferences, we will continue to seek possible transfer at [facility]. 2358: Surrounding area hospitals called [facility] said they would entertain the idea of having an ED to ED transfer however patient may stay in the ER for 2 to 3 days. I did discuss this with patient who refuses transfer to [facility]. Patient's O2 sat is 88-89 on room air while sleeping. I did listen to his lungs which sound wheezy. I am concerned for possible fluid overload patient has received 3 L of fluid since his stay here. The last liter was written for 100/ hour but patient got a liter of fluid. Patient placed on 2 L nasal cannula O2 sat is 97%. Portable chest x-ray ordered. Patient refusing transfer to [facility] at this time. Care is to be handed off to ER Dr. Atkinson pending repeat labs in a.m. and reevaluation for transfer versus admission and transfer. Dr. Atkinson 0100 --I discussed with patient at bedside and he is now agreeable with plan for transfer to [place] if bed availability. I discussed with Lucio at [place] transfer center and they have accepted patient for transfer to the ED. They asked that patient be transferred at 6 AM due to high volume in the ED at this time. Accepting physician binding dyer Dr. Sin. 0700 --No events overnight. Pt requested a dose of morphine prior to transfer. Vitals have been stable. at bedside now and agreeable with plan. Medical Records Medical records reviewed: Yes I reviewed the patient's medical records. Imaging Data Radiologic Study: Radiologist's impression: CT CHEST/ABD/PEL WO CLINICAL HISTORY: ? renal failure, respiratory. ? TECHNIQUE:? Imaging Protocol: Axial computed tomography images with coronal and sagittal reformatted images were created and reviewed CONTRAST MATERIAL:? Noncontrast Oral:? no COMPARISON:? CT CT CHEST LUNG CANCER SCREEN from 11/15/2021 FINDINGS: CHEST: Tracheobronchial tree: Patent where visualized. Mediastinum and Danielle: No dominant adenopathy or fluid collection. Pulmonary parenchyma: Postsurgical changes left chest.? Stable bilateral areas of scarring.? No acute infiltrates. Pleura: No effusion or pneumothorax. Lymph nodes: Within normal limits. Aorta: Atherosclerotic changes.? Stable area of focal outpouching descending aorta. Heart: Not enlarged.? Coronary artery calcifications noted. Bones: Unremarkable for age.? No lytic or blastic lesions. Left axillary to left femoral bypass graft. ABDOMEN: Liver: Normal density. No measurable mass. Gallbladder and biliary tract: Gallstone.? No wall thickening.? No biliary dilation.? Pancreas: Normal density, no abnormal calcifications or inflammatory process. Spleen: Normal. Kidneys: Normal size, contour and axis. No radiodense stones or obstructive uropathy. No masses seen. Adrenal glands: No masses seen. Aorta: Abdominal aortic stent.? Stents noted in a [place] iliac arteries.? Bilateral iliac artery arm bypass noted.? Dilatation of the right common femoral artery, 2 x 2 2.3 cm.. Lymph nodes: Within normal limits. Soft tissues: Unremarkable. PELVIS:? Bladder: Symmetric distention, no gross wall thickening. Bowel: No obstruction or bowel wall thickening. ? Large quantity of stool is noted high density material is present in the colon which could be secondary to recent oral contrast administration versus other ingested substance. Peritoneal cavity: No ascites, collection or mesenteric inflammatory response. Bones: Unremarkable for age..? Reproductive organs: Enlarged prostate. IMPRESSION: Postsurgical changes in the left chest.? No acute abnormality in the chest abdomen or pelvis..? Findings called to Jenny Fernandez, emergency department provider. Lab Data Lab results reviewed: Yes I reviewed the patient's lab results. ECG Data Attestation: I personally reviewed and interpreted this ECG (s) as follows: Interpretation: rate of 74, sinus, rbbb, no stemi. HPI <GEORGINA Chairez - Last Filed: 08/26/22 16:06> General Date/Time Provider Initiated Documentation: 08/24/22 10:03. HPI Narrative: This 72-year-old gentleman with history of AAA, COPD, lung cancer, CAREN, thoracic aortic aneurysm, presents with report of chills, fever, cough, shortness of breath. He states he feels very weak today which is why he presents. States has been going on for approximately 2 weeks. He was reportedly placed on Keflex for COPD exacerbation a week ago, denies any improvement in symptoms. Reports mild back pain and generalized muscle aches. States has been negative for flu and COVID. Related Data Home Medications Medication Instructions Recorded Confirmed rosuvastatin 40 mg tablet (Crestor) 40 mg PO QPM 04/25/14 08/24/22 apixaban 5 mg tablet (Eliquis) 5 mg PO BID 05/30/20 08/24/22 acetaminophen 500 mg tablet 1,000 mg PO Q6H PRN PRN #0 tabs 03/19/21 08/24/22 bisacodyl 5 mg tablet,delayed 5 mg PO ONCE colonscopy bowel prep 10/16/21 08/24/22 release (Dulcolax (bisacodyl)) #4 tabs albuterol sulfate 90 mcg/actuation 2 puff inhalation .4-6 HOURS PRN 07/30/22 08/24/22 aerosol inhaler (ProAir HFA) shortness of breath or wheezing #8.5 grams fluticasone propionate 110 1 puff inhalation BID #12 grams 07/30/22 08/24/22 mcg/actuation HFA aerosol inhaler (Flovent HFA) tiotropium 2.5 mcg-olodaterol 2.5 2 puff inhalation DAILY #4 grams 07/30/22 08/24/22 mcg/actuation mist for inhalation (Stiolto Respimat) aspirin 81 mg tablet,delayed 81 mg PO DAILY 08/24/22 08/24/22 release cephalexin 500 mg tablet 500 mg PO TID 08/24/22 08/24/22 molnupiravir 200 mg capsule (EUA) 800 mg PO DAILY 08/24/22 08/24/22 Previous Rx's Medication Instructions Recorded acetaminophen 500 mg tablet 1,000 mg PO Q6H PRN PRN #0 tabs 03/19/21 bisacodyl 5 mg tablet,delayed 5 mg PO ONCE colonscopy bowel prep 10/16/21 release (Dulcolax (bisacodyl)) #4 tabs albuterol sulfate 90 mcg/actuation 2 puff inhalation .4-6 HOURS PRN 07/30/22 aerosol inhaler (ProAir HFA) shortness of breath or wheezing #8.5 grams fluticasone propionate 110 1 puff inhalation BID #12 grams 07/30/22 mcg/actuation HFA aerosol inhaler (Flovent HFA) tiotropium 2.5 mcg-olodaterol 2.5 2 puff inhalation DAILY #4 grams 07/30/22 mcg/actuation mist for inhalation (Stiolto Respimat) Allergies Allergy/AdvReac Type Severity Reaction Status Date / Time No Known Allergies Allergy Unverified 08/24/22 10:46 General Stated Complaint: [facility] BRYAN: 3 Review of Systems <GEORGINA Chairez - Last Filed: 08/26/22 16:06> All systems reviewed & are unremarkable except as noted in HPI and below PFSH <GEORGINA Chairez - Last Filed: 08/26/22 16:06> All Active Problems (Updated 08/25/22 @ 00:02 by Gi Colleir NP) Acute renal failure (Acute) Rhabdomyolysis (Acute) Anemia (Chronic) Elevated liver transaminase level (Acute) Adenomatous polyps (Acute) Low iron (Acute) Cigarette smoker (Acute) Medication monitoring encounter (Acute) Phantom limb pain (Acute) Visual hallucination (Acute) Auditory hallucination (Acute) Hypoxemia (Acute) Cyst of skin (Acute) Screening for colon cancer (Acute) Dog scratch (Acute) Wound infection, posttraumatic (Acute) Acute kidney injury (nontraumatic) (Acute) Elevated d-dimer (Acute) Pleuritic chest pain (Acute) Dyspnea (Acute) COPD (chronic obstructive pulmonary disease) (Acute) Medical History (Updated 08/25/22 @ 00:02 by Gi Collier NP) Abdominal aortic aneurysm (AAA) Aneurysm of femoral artery Back pain, chronic leg pain, implanted nerve stimulator Chest wall pain Chronic cough CKD (chronic kidney disease) stage 3, GFR 30-59 ml/min Constipation COPD (chronic obstructive pulmonary disease) Diastolic dysfunction PERSON (dyspnea on exertion) Ganglion cyst GERD (gastroesophageal reflux disease) History of adenomatous polyp of colon History of epistaxis History of hematuria History of seizures Hyperlipidemia Incisional hernia Irregular cardiac rhythm Leg edema, left Leukocytosis Lower urinary tract symptoms Lung cancer, upper lobe Status post left lobectomy with no other treatment and no evidence of recurrence Malaise and fatigue Neuropathy ischemic, 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 PVD (peripheral vascular disease) Sebaceous cyst SOB (shortness of breath) Tobacco use URI (upper respiratory infection) Surgical History History of above-knee amputation History of surgical procedure multiple vascular procedures/bypass grafts BLE S/P AAA repair S/P lobectomy of lung Social History Smoking/Tobacco Use Status: Current every day Tobacco Type: cigarettes Tobacco: How many years used: 40 Smoking risk assessment performed?: Yes Alcohol Intake: never Drug use: Never Substance use type: does not use Current gender identity: male Do you feel safe at home: Yes Do you feel safe in your relationship?: Yes Exam <GEORGINA Chairez - Last Filed: 08/26/22 16:06> Const General: cooperative and ill appearing Orientation: alert Other: CACHECTIC Eyes Conjunctivae: conjunctivae normal Resp Effort & Inspection: normal respiratory effort Auscultation: clear to auscultation bilaterally Cardio Rate: regular rate Rhythm: regular rhythm GI Inspection: normal to inspection Other: NON-TENDER Skin General skin exam: no rashes or lesions noted Neuro General: patient alert and patient oriented x3 Extrem General: normal to inspection Course <GEORGINA Chairez - Last Filed: 08/26/22 16:06> Vital Signs Vital signs: Vital Signs Temperature 36.6 C 08/24/22 10:16 Pulse 82 08/24/22 10:16 Respiratory Rate 14 08/24/22 10:16 Blood Pressure 92/47 L 08/24/22 10:16 Pulse Oximetry 97 08/24/22 10:16 Temperature 36.6 C 08/24/22 10:16 Temperature Source Skin 08/24/22 10:16 Pulse 82 08/24/22 10:16 Respiratory Rate 14 08/24/22 10:16 Blood Pressure 92/47 L 08/24/22 10:16 Pulse Oximetry 97 08/24/22 10:16 Oxygen Delivery Method Room Air 08/24/22 10:16 Oxygen Flow Rate 0 08/24/22 10:16 Pain Level 6 08/24/22 10:16 Comment 08/24/22 10:16 <Gi Collier NP - Last Filed: 09/01/22 08:18> Stool Hemoccult Procedural Steps Taken: stool placed in appropriate test area, developer placed on stool and control areas and controls appropriately positive and negative Hemoccult result: positive Additional Comments: Trace positive, patient states my stool is always dark Critical Care Time <GEORGINA Chairez - Last Filed: 08/26/22 16:06> Critical Care Time Attestation: 60 min of CC time performed secondary to acute renal failure,hypocalcemia, hypotension, and hypokalemia. pt received IV fluid hydration,telemetry monitoring, diagnostic imaging, and consultation with [place] [facility] [place] Out <GEORGINA Chairez - Last Filed: 08/26/22 16:06> Sign Out Data: Sign Out Comment: pending nephrology consultation and admission vs transfer Last updated by Jenny Fernandez PA at 08/24/22 16:10 Sign Out Comment: 72 year old male. Hx of Lung CA, Full Code, weeks of progressing weakness, body aches and decreased PO intake. CAREN due to Rhabdomyolysis. Pending transfer/ admission. Repeat Labs in am. Repeat CMP, CPK, CBC, CXR and further observation. Last updated by Gi Collier NP at 08/25/22 00:19
[2022-08-24 11:14] LABS: Lactate 1.5 mmol/L (0.6-1.4)
[2022-08-24 11:17] LABS: Abs Immature Grans 0.08 10^3/uL (0.0-0.06); Absolute Basophil Count 0.03 10^3/uL (0.0-0.2); Absolute Eosinophil Count 0.09 10^3/uL (0.0-0.7); Absolute Lymphocyte Count 0.55 10^3/uL (1.2-3.4); Absolute Monocyte Count 0.97 10^3/uL (0.1-0.8); Basophils % 0.3; Eosinophils % 0.8; HCT 29.5 % (40.0-50.0); HGB 10.5 g/dL (13.5-17.5); Immature Grans % 0.7; MCH 31.3 pg (27.0-33.0); MCHC 35.6 % (32.0-36.0); MCV 88 fL (80-95); MPV 10.4 fL (8.0-11.0); Monocytes % 8.8; Neutrophils % 84.4; Platelet Count 159 10^3/uL (130-400); RBC 3.35 10^6/uL (4.36-5.78); RDW 12.3 % (11.8-14.1); RDW-SD 39.4 fL; WBC 10.98 10^3/uL (4.4-10.8)
[2022-08-24] MEDS: Lactated Ringers 1,000 ML 1000 ML IV (11:19)
[2022-08-24 11:20] LABS: Absolute Neutrophil Count 9.27 10^3/uL (1.2-6.7)
[2022-08-24 11:30] LABS: ALT 210 U/L (16-63); AST 184 U/L (15-37); Albumin 2.5 g/dL (3.4-5.0); Alkaline Phosphatase 127 U/L (46-116); Anion Gap 17.4 mmol/L (3-11); Bilirubin, Total 0.5 mg/dL (0.2-1.0); C-Reactive Protein 1.37 mg/dL (0.0-0.3); CO2 20.6 mmol/L (21.0-32.0); Calcium 7.7 mg/dL (8.5-10.1); Chloride 87 mmol/L (98-107); Estimated GFR 5.17 (mL/min/1.73m2); Glucose 120 mg/dL (74-106); Lipase 298 U/L (73-393); Sodium 125 mmol/L (136-145); Total Protein 6.1 g/dL (6.4-8.2)
--- NOTE | 2022-08-24 11:30 | DI.CT_ITS ---
Exam(s) CT CHEST/ABD/PEL WO EXAM: CT CHEST/ABD/PEL WO CLINICAL HISTORY: renal failure, respiratory. TECHNIQUE: Imaging Protocol: Axial computed tomography images with coronal and sagittal reformatted images were created and reviewed CONTRAST MATERIAL: Noncontrast Oral: no COMPARISON: CT CT CHEST LUNG CANCER SCREEN from 11/15/2021 FINDINGS: CHEST: Tracheobronchial tree: Patent where visualized. Mediastinum and Danielle: No dominant adenopathy or fluid collection. Pulmonary parenchyma: Postsurgical changes left chest. Stable bilateral areas of scarring. No acute infiltrates. Pleura: No effusion or pneumothorax. Lymph nodes: Within normal limits. Aorta: Atherosclerotic changes. Stable area of focal outpouching descending aorta. Heart: Not enlarged. Coronary artery calcifications noted. Bones: Unremarkable for age. No lytic or blastic lesions. Left axillary to left femoral bypass graft. ABDOMEN: Liver: Normal density. No measurable mass. Gallbladder and biliary tract: Gallstone. No wall thickening. No biliary dilation. Pancreas: Normal density, no abnormal calcifications or inflammatory process. Spleen: Normal. Kidneys: Normal size, contour and axis. No radiodense stones or obstructive uropathy. No masses seen. Adrenal glands: No masses seen. Aorta: Abdominal aortic stent. Stents noted in a red devil iliac arteries. Bilateral iliac artery arm bypass noted. Dilatation of the right common femoral artery, 2 x 2 2.3 cm.. Lymph nodes: Within normal limits. Soft tissues: Unremarkable. PELVIS: Bladder: Symmetric distention, no gross wall thickening. Bowel: No obstruction or bowel wall thickening. Large quantity of stool is noted high density mater ial is present in the colon which could be secondary to recent oral contrast administration versus ot her ingested substance. Peritoneal cavity: No ascites, collection or mesenteric inflammatory response. Bones: Unremarkable for age.. Reproductive organs: Enlarged prostate. IMPRESSION: Postsurgical changes in the left chest. No acute abnormality in the chest abdomen or pelvis.. Findings called to Jenny Fernandez, emergency department provider. RADIATION DOSE DELIVERED: 815.25mGy.cm Total DLP DATA REPOSITORY: All CT scans at this facility are submitted to the National Radiology Data Registry (NRDR) Dose Index Registry (DIR) with the [employer] ([employer]). RADIATION OPTIMIZATION: All CT scans at this facility use at least one of these dose optimization te chniques: automated exposure control; mA and/or kV adjustment per patient size (includes targeted exa ms where dose is matched to clinical indication); or iterative reconstruction.
[2022-08-24 11:33] LABS: INR 1.2 (0.9-1.1); Prothrombin Time 12.3 sec (9.3-11.0)
[2022-08-24 11:35] LABS: BUN 87 mg/dL (7-18); CREATININE 9.9 mg/dL (0.70-1.30); Potassium 2.7 mmol/L (3.5-5.1)
--- NOTE | 2022-08-24 11:45 | RT.EKG_ITS ---
APPROVED REPORT Exam: Resting ECG Reason for Exam: weakness Patient Location: E HR:74 bpm ECG Measurements Heart Rate 74 AXIS ID 209 P 77 QRSd 157 QRS 115 QT 453 T 5 QTc 501 Conclusion Sinus rhythm...normal P axis, V-rate 60- 99 Ventricular premature complex...V complex w/ short R-R interval Right bundle branch block...QRSd>120, terminal axis(90,270) sinus rhythm, nrmal axis, prlonged ID, bundle branch block
[2022-08-24 11:51] LABS: Procalcitonin 1.5 ng/mL
[2022-08-24 11:55] LABS: COVID-19 PCR Negative (Negative); Influenza A PCR Negative (Negative); Influenza B PCR Negative (Negative); RSV PCR Negative (Negative)
[2022-08-24 11:57] LABS: Source Nasopharynx
[2022-08-24 12:17] LABS: BE (Venous) -8 mmol/L (-2-3); HCO3 (Venous) 19 mmol/L (23-28); O2 Sat (Venous) 81 %; TCO2 (Venous) 18 mmol/L (24-29); pCO2 (Venous) 40 mmHg (41-51); pH (Venous) 7.28 (7.31-7.41); pO2 (Venous) 47 mmHg
[2022-08-24 12:31] LABS: Magnesium 2.4 mg/dL (1.8-2.4)
[2022-08-24 12:48] LABS: Creatine Kinase 8077 U/L (39-308)
[2022-08-24 13:42] LABS: Bilirubin Negative (Negative); Blood Large (Negative); Clarity Clear (Clear); Glucose Negative (Negative); Ketones Negative (Negative); Leukocyte Esterase Negative (Negative); Nitrite Negative (Negative); Specific Gravity 1.015 (1.005-1.025); Urobilinogen 0.2 EU/dL (Up TO 0.2); pH 5.5 (5-8)
[2022-08-24 13:50] LABS: Bacteria Negative HPF (Negative); C & S Indicated? No; Casts Negative LPF (Negative); Crystals Negative HPF (Negative); Epithelial Cells Negative HPF (Negative); Mucus Negative (Negative); Other Cells Few Transitional (Negative); RBC 0-2 HPF (0-2); WBC 0-2 HPF (0-5)
[2022-08-24] MEDS: MORPHine 4 MG/ML SYR (14:05)
[2022-08-24] MEDS: Normal Saline 1,000 ML 1000 ML IV (14:29)
[2022-08-24 15:27] LABS: ALT 174 U/L (16-63); AST 145 U/L (15-37); Albumin 2.1 g/dL (3.4-5.0); Alkaline Phosphatase 107 U/L (46-116); Bilirubin, Total 0.5 mg/dL (0.2-1.0); Calcium 7.3 mg/dL (8.5-10.1); Chloride 92 mmol/L (98-107); Estimated GFR 5.72 (mL/min/1.73m2); Glucose 95 mg/dL (74-106); Sodium 128 mmol/L (136-145); Total Protein 5.1 g/dL (6.4-8.2)
[2022-08-24 15:33] LABS: BUN 83 mg/dL (7-18); CREATININE 9.1 mg/dL (0.70-1.30); Potassium 2.7 mmol/L (3.5-5.1)
[2022-08-24] MEDS: Potassium Chloride Liquid 20 MEQ PKT 40 MEQ PO (16:50)
[2022-08-24] MEDS: Lactated Ringers 1,000 ML 100 ML IV (17:00)
[2022-08-24 17:46] LABS: TSH (W/Ref FT4) 1.08 uIU/mL (0.36-3.74)
[2022-08-24] MEDS: MORPHine 10 MG/ML VIAL 2 MG IVP (19:00)
[2022-08-24] MEDS: Sodium Bicarbonate 650 MG TAB PO (20:59)
[2022-08-24 21:04] LABS: Abs Immature Grans 0.05 10^3/uL (0.0-0.06); Absolute Basophil Count 0.03 10^3/uL (0.0-0.2); Absolute Lymphocyte Count 0.48 10^3/uL (1.2-3.4); Absolute Monocyte Count 0.69 10^3/uL (0.1-0.8); Absolute Neutrophil Count 6.64 10^3/uL (1.2-6.7); Basophils % 0.4; Eosinophils % 1.3; HCT 24.5 % (40.0-50.0); HGB 8.7 g/dL (13.5-17.5); Immature Grans % 0.6; MCH 31.2 pg (27.0-33.0); MCHC 35.5 % (32.0-36.0); MCV 88 fL (80-95); MPV 10.1 fL (8.0-11.0); Monocytes % 8.6; Neutrophils % 83.1; Platelet Count 137 10^3/uL (130-400); RBC 2.79 10^6/uL (4.36-5.78); RDW 12.5 % (11.8-14.1); RDW-SD 40.4 fL; WBC 7.99 10^3/uL (4.4-10.8)
[2022-08-24 21:19] LABS: INR 1.2 (0.9-1.1); PTT Activated 32.2 sec (21.0-27.5); Prothrombin Time 12.2 sec (9.3-11.0)
[2022-08-24 21:31] LABS: ALT 166 U/L (16-63); AST 133 U/L (15-37); Albumin 2.1 g/dL (3.4-5.0); Alkaline Phosphatase 103 U/L (46-116); Bilirubin, Total 0.5 mg/dL (0.2-1.0); Calcium 7.4 mg/dL (8.5-10.1); Chloride 95 mmol/L (98-107); Estimated GFR 5.36 (mL/min/1.73m2); Glucose 84 mg/dL (74-106); Potassium 3.4 mmol/L (3.5-5.1); Sodium 130 mmol/L (136-145); Total Protein 5.1 g/dL (6.4-8.2)
[2022-08-24 21:34] LABS: BUN 84 mg/dL (7-18); CREATININE 9.6 mg/dL (0.70-1.30)
[2022-08-24 21:35] LABS: Creatine Kinase 6708 U/L (39-308)
--- NOTE | 2022-08-24 23:45 | DI.RAD_ITS ---
Exam(s) XR PORTABLE CHEST AP EXAM: XR PORTABLE CHEST AP CLINICAL HISTORY: Hypoxia, Hx of Lobectomy TECHNIQUE: 2D digital imaging was performed. COMPARISON: CR,XR XR PORTABLE CHEST AP from 11/29/[address] CHEST/ABD/PEL WO from 08/24/2022 FINDINGS: Leads overlie the chest. LUNGS: There is again noted be left-sided volume loss and scarring. Surgical clips are noted in the left upper lobe. No infiltrates are seen. HEART: Normal size. AORTA: Normal diameter. BONES: Unremarkable for age. Soft tissues: Unremarkable. IMPRESSION: Stable postsurgical changes left chest. DATA REPOSITORY: RADIATION DOSE DELIVERED:
[2022-08-25] VITALS (79 sets, daily range): BP systolic 91–120; BP diastolic 37–60; PULSE 80–93; RESP 14–23; TEMP 37; O2SAT 89–98
--- NOTE | 2022-08-25 04:19 | DI.VRAD_ITS ---
PROCEDURE INFORMATION: Exam: XR Chest Exam date and time: 08/25/2022 2:12 AM Age: 72 years old Clinical indication: Other: Hypoxia, HX of lobectomy; Prior surgery; Surgery date: 6+ months TECHNIQUE: Imaging protocol: Radiologic exam of the chest. Views: 1 view. COMPARISON: CT CHEST/ABD/PEL WO 08/24/2022 12:44 PM FINDINGS: Lungs: Chronic left-sided volume loss predominantly in the upper lobes and surgical clips noted. Elevated left hemidiaphragm. Chronic reticular markings. Pleural spaces: Small left pleural effusion not excluded. No pneumothorax. Heart/Mediastinum: No cardiomegaly. Bones/joints: Unremarkable. IMPRESSION: Chronic findings on the left with volume loss and possible small left pleural fluid Otherwise, no acute findings Dictated and Authenticated by: Arnoldo Bradford MD. Ordering:CHELO Angelo MD
[2022-08-25 06:42] LABS: ALT 173 U/L (16-63); AST 142 U/L (15-37); Albumin 2.1 g/dL (3.4-5.0); Alkaline Phosphatase 115 U/L (46-116); Anion Gap 19.1 mmol/L (3-11); Bilirubin, Total 0.6 mg/dL (0.2-1.0); CO2 16.9 mmol/L (21.0-32.0); Chloride 95 mmol/L (98-107); Estimated GFR 5.17 (mL/min/1.73m2); Glucose 71 mg/dL (74-106); Potassium 3.7 mmol/L (3.5-5.1); Sodium 131 mmol/L (136-145); Total Protein 5.3 g/dL (6.4-8.2)
[2022-08-25 06:45] LABS: BUN 91 mg/dL (7-18); CREATININE 9.9 mg/dL (0.70-1.30)
[2022-08-25] MEDS: MORPHine 4 MG/ML SYR IVP (06:48)
[2022-08-25] MEDS: Sodium Bicarbonate 650 MG TAB PO (07:41)
== END 2022-08-25 07:59 | disposition short-term general hospital (02) ==
PROVIDERS: Physician Assistant; Registered Nurse Emergency; Emergency Provider Physician Assistant; PCP Internal Medicine
DX: N17.9 Acute kidney failure, unspecified (principal); M62.82 Rhabdomyolysis; D64.9 Anemia, unspecified; R74.01 Elevation of levels of liver transaminase levels; E83.51 Hypocalcemia; I95.9 Hypotension, unspecified; E87.6 Hypokalemia; N18.30 Chronic kidney disease, stage 3 unspecified; J44.9 Chronic obstructive pulmonary disease, unspecified; R79.89 Other specified abnormal findings of blood chemistry; Z79.01 Long term (current) use of anticoagulants; Z79.51 Long term (current) use of inhaled steroids; Z79.82 Long term (current) use of aspirin; Z20.822 Contact with and (suspected) exposure to COVID-19
CPT/HCPCS: 36415; 51702; 71250; 80053; 82550; 82805; 83690; 84145; 86850; 86900; 86901; 87040; 87637; 93005; 96361; 96374; 96376; 99291; 71045; 74176; 81003; 81015; 83605; 83735; 84443; 85025; 85610; 85730; 86140; 87086; 93010; J2270

== ENCOUNTER 2022-09-14 13:16 | Outpatient (REF) | payer OTHER, SELFPAY ==
[2022-09-14 17:19] LABS: BUN 42 mg/dL (7-18); Calcium 7.8 mg/dL (8.5-10.1); Chloride 101 mmol/L (98-107); Estimated GFR 10.94 (mL/min/1.73m2); Glucose 77 mg/dL (74-106); Potassium 3.2 mmol/L (3.5-5.1); Sodium 140 mmol/L (136-145)
[2022-09-14 17:27] LABS: CREATININE 5.3 mg/dL (0.70-1.30)
== END 2022-09-14 13:17 | disposition home or self-care (01) ==
LOC: LBN 13:16
PROVIDERS: PCP Internal Medicine; Visit Provider Family Medicine
DX: N17.9 Acute kidney failure, unspecified (principal)
CPT/HCPCS: 80048

== ENCOUNTER 2022-09-28 09:09 | Outpatient (REF) | payer OTHER, SELFPAY ==
[2022-09-28 10:23] LABS: Anion Gap 8.7 mmol/L (3-11); BUN 21 mg/dL (7-18); CO2 30.3 mmol/L (21.0-32.0); CREATININE 2.4 mg/dL (0.70-1.30); Calcium 8.3 mg/dL (8.5-10.1); Chloride 105 mmol/L (98-107); Estimated GFR 28.32 (mL/min/1.73m2); Glucose 129 mg/dL (74-106); Potassium 3.4 mmol/L (3.5-5.1); Sodium 144 mmol/L (136-145)
== END 2022-09-28 09:10 | disposition home or self-care (01) ==
LOC: LBN 09:09
PROVIDERS: PCP Internal Medicine; Visit Provider Family Medicine
DX: E87.1 Hypo-osmolality and hyponatremia (principal); N19 Unspecified kidney failure
CPT/HCPCS: 80048